=== PATIENT | male | born 1955 | race African-American/Black ===

== ENCOUNTER 2019-03-26 16:30 | Inpatient (IN) | payer MEDICAID ==
[~2019-03-26] VITALS: Ht 170.2 cm; Wt 95.3 kg
--- OUTSIDE RECORDS SUMMARY | 2019-03-26 16:35 | XMS REPORT | Referral Summary ---
Author Author [facility] Organization Via [facility] Address Unknown Phone Unavailable Care Team Providers Care Superior Court Clerk Name Role Phone [facility], [facility] PCP Unavailable Encounter [facility] [id number] Date(s): 05/15/17 - 05/15/17 [facility] [address] [place], [place] [address] Discharge Diagnosis: Effusion of left knee Discharge Disposition: 01-Home or Self Care Attending Physician: Cristobal Domingo MD Admitting Physician: Cristobal Domingo MD Vital Signs Most recent to 1 oldest [Reference Range]: Respiratory Rate 16 br/min [14-20 br/min] (05/15/17 3:55 PM) Problem List Condition Effective Dates Status Health Status Informant Acute Active pain(Confirmed) At risk for activity Active intolerance(Confirme d)1 At risk of pressure Active sore(Confirmed) Chronic obstructive Active pulmonary disease(Confirmed) Hepatitis Active C(Confirmed) Osteoarthritis(Confi Active rmed) Hypertension(Confirm Active patient ed) Knowledge Active deficit(Confirmed)2 Mixed Active hyperlipidemia(Confi rmed) Obesity(Confirmed) Active patient Peripheral vascular Active disease(Confirmed) Nicotine Active dependence(Confirmed ) 1Problem added automatically by system based on initiation of At Risk for Activity Intolerance Plan of Care 2Problem added automatically by system based on initiation of Knowledge Deficit Plan of Care Allergies, Adverse Reactions, Alerts No Known Medication Allergies Medications aspirin 81 mg oral tablet 81 mg 1 tabs, Oral, Daily, 0 Refill(s) Start Date: 01/17/17 Status: Ordered atorvastatin 20 mg oral tablet 20 mg 1 tabs, Oral, Daily, # 30 tabs, 0 Refill(s) Start Date: 03/06/17 Status: Ordered clopidogrel 75 mg oral tablet 75 mg 1 tabs, Oral, Daily, 0 Refill(s) Start Date: 01/17/17 Status: Ordered lisinopril-hydrochlorothiazide 20 mg-12.5 mg oral tablet 1 tabs, Oral, Daily, 0 Refill(s) Start Date: 01/17/17 Status: Ordered Results Microbiology Reports TEST: Fluid Culture and Smear STATUS: Order in Progress BODY SITE: SOURCE: Synovial Fluid COLLECTED DATE/TIME: 05/15/17 5:10 PM Gram Smear Few (1-5/OIF) white blood cells No microorganisms observed OIF=Oil Immersion Field LPF=Low Power Field Immunizations No data available for this section Procedures Procedure Date Related Diagnosis Body Site Arthrocentesis, aspiration and/or injection, 05/15/17 major joint or bursa (eg, shoulder, hip, knee, subacromial bursa); without ultrasound guidance Angioplasty balloon catheter1 Placement of stent2 1RLE 2LLE Social History Social History Type Response Smoking Status Current every day smoker; Tobacco use per day: 1/2 pack or more Assessment and Plan No data available for this section
--- OUTSIDE RECORDS SUMMARY | 2019-03-26 16:35 | XMS REPORT | Referral Summary ---
Author Author [facility] Organization [facility] Address Unknown Phone Unavailable Care Team Providers Care Official Court Interpreter Name Role Phone [facility], [facility] PCP Unavailable Encounter [facility] [id number] Date(s): 02/14/17 - 02/14/17 [facility] [address], [place] [address] [facility] Discharge Diagnosis: Hepatitis C Discharge Disposition: 01-Home or Self Care Attending Physician: Rosita Burroughs MD Admitting Physician: Rosita Burroughs MD Vital Signs Most recent to 1 oldest [Reference Range]: Peripheral Pulse 76 bpm Rate [60-100 bpm] (02/14/17 10:49 AM) Blood Pressure 126/66 mmHg [90-140/60-90 mmHg] (02/14/17 10:49 AM) Problem List Condition Effective Dates Status Health Status Informant Acute Active pain(Confirmed) At risk for activity Active intolerance(Confirme d)1 At risk of pressure Active sore(Confirmed) Chronic obstructive Active pulmonary disease(Confirmed) Hypertension(Confirm Active patient ed) Knowledge Active deficit(Confirmed)2 Mixed Active hyperlipidemia(Confi rmed) Nicotine Active dependence(Confirmed ) Obesity(Confirmed) Active patient Osteoarthritis(Confi Active rmed) Peripheral vascular Active disease(Confirmed) 1Problem added automatically by system based on initiation of At Risk for Activity Intolerance Plan of Care 2Problem added automatically by system based on initiation of Knowledge Deficit Plan of Care Allergies, Adverse Reactions, Alerts No Known Medication Allergies Medications aspirin 81 mg oral tablet 81 mg 1 tabs, Oral, Daily, 0 Refill(s) Start Date: 01/17/17 Status: Ordered clopidogrel 75 mg oral tablet 75 mg 1 tabs, Oral, Daily, 0 Refill(s) Start Date: 01/17/17 Status: Ordered lisinopril-hydrochlorothiazide 20 mg-12.5 mg oral tablet 1 tabs, Oral, Daily, 0 Refill(s) Start Date: 01/17/17 Status: Ordered pravastatin 20 mg oral tablet 20 mg 1 tabs, Oral, Daily, 0 Refill(s) Start Date: 01/17/17 Status: Ordered traMADol 50 mg oral tablet 50 mg 1 tabs, Oral, q4hr, as needed for pain, # 30 tabs, 0 Refill(s) Start Date: 02/06/17 Stop Date: 02/15/17 Status: Ordered Results No data available for this section Immunizations No data available for this section Procedures Procedure Date Related Diagnosis Body Site Angioplasty balloon catheter1 Placement of stent2 1RLE 2LLE Social History Social History Type Response Smoking Status Current every day smoker; Tobacco use per day: 1/2 pack or more Assessment and Plan Extracted from: Title: Office Visit Note Author: Rosita Burroughs MD Date: 02/14/17 Assessment/Plan 1.Hepatitis C Genotype 1b, F3. He has been approved for Zepatier 12 weeks. He is waitingfor the medication to me mailed to him. The patient is requested to call me once he receives the medication then I need to see him to give him detailed instructions on how to take the medications and how to handle possible side effects. He is treatment [place]. Extracted from: Title: Bob Approved Author: Cassius Oleary MA Date: 02/14/17 Patients insurer faxed approval letter for zepatier for initial 28 day supply. [email or web address] and was informed that [facility] has taken over patients zepatier and approval
--- OUTSIDE RECORDS SUMMARY | 2019-03-26 16:36 | XMS REPORT | Referral Summary ---
Author Author [facility] Organization [facility] Address Unknown Phone Unavailable Care Team Providers Care Transport Aide Name Role Phone [facility], [facility] PCP Unavailable Encounter [facility] [id number] Date(s): 02/23/17 - 02/23/17 [facility] [address], [place] [address] [facility] Discharge Diagnosis: Hepatitis C Discharge Disposition: 01-Home or Self Care Attending Physician: Rosita Burroughs MD Admitting Physician: Rosita Burroughs MD Vital Signs Most recent to 1 oldest [Reference Range]: Peripheral Pulse 90 bpm Rate [60-100 bpm] (02/23/17 1:10 PM) Blood Pressure 116/64 mmHg [90-140/60-90 mmHg] (02/23/17 1:10 PM) Problem List Condition Effective Dates Status [...] 0 Refill(s) Start Date: 01/17/17 Status: Ordered Zepatier 50 mg-100 mg oral tablet 1 tabs, Oral, Daily, # 28 tabs, 2 Refill(s), called to pharmacy (Rx) Start Date: 02/20/17 Stop Date: 04/25/17 Status: Ordered Results No data available for [...] Visit Note Author: Rosita Burroughs MD Date: 02/23/17 Assessment/Plan 1.Hepatitis C Genotype 1b, F3. He is treatment naive. He will start his Zepatier today for a total of 12 weeks. CBC, CMP, hepatitis C viral loadin one month. Follow-up in one month. I have discussed with him how to take the medication, drug interactions, and possible side effects. He needs to call me if with questions or concerns.He is immune to hepatitis A and B Ordered: CBC Hemogram CBC w/ Differential CBC w/ Differential CBC w/ Differential Comprehensive Metabolic Panel Comprehensive Metabolic Panel Comprehensive Metabolic Panel Comprehensive Metabolic Panel Hepatitis C RNA PCR Quantitative Hepatitis C RNA PCR Quantitative Hepatitis C RNA PCR Quantitative
--- OUTSIDE RECORDS SUMMARY | 2019-03-26 16:36 | XMS REPORT | Referral Summary ---
Author Author [facility] Organization [facility] Address Unknown Phone Unavailable Care Team Providers Care Vascular Radiologist Name Role Phone [facility], [facility] PCP Unavailable Encounter [facility] [id number] Date(s): 01/17/17 - 01/17/17 [facility] [address], [place] [address] [facility] Discharge Diagnosis: Hepatitis C Discharge Disposition: 01-Home or Self Care Attending Physician: Rosita Burroughs MD Admitting Physician: Rosita Burroughs MD Referring Physician: Mya Bonilla PA-C Vital Signs Most recent to 1 oldest [Reference Range]: Peripheral Pulse 80 bpm Rate [60-100 bpm] (01/17/17 9:43 AM) Respiratory Rate 20 br/min [14-20 br/min] (01/17/17 9:43 AM) Blood Pressure 120/78 mmHg [90-140/60-90 mmHg] (01/17/17 9:43 AM) Problem List Condition Effective Dates Status [...] Refill(s) Start Date: 01/17/17 Status: Ordered Results Chemistry Most recent to 1 oldest [Reference Range]: Hep Bs Ab 36.0 1 (01/17/17 11:10 AM) Hepatitis B Surface Positive 2 Ab-QL *ABN* (01/17/17 11:10 AM) Hep Bs Ag Negative (01/17/17 11:10 AM) 1Result Comment: REFERENCE VALUE No Immunity or unvaccinated: <8.0 Immune or vaccinated:=>12.0 2Result Comment: REFERENCE VALUE No Immunity or unvaccinated: Negative Immune or vaccinated: Positive Immunizations No data available for this section Procedures Procedure Date Related Diagnosis Body Site Angioplasty balloon catheter1 Placement of stent2 1RLE 2LLE Social History Social History Type Response Smoking Status Current every day smoker; Tobacco use per day: 1/2 pack or more Assessment and Plan No data available for this section
--- OUTSIDE RECORDS SUMMARY | 2019-03-26 16:36 | XMS REPORT | Referral Summary ---
Author Author [facility] Organization [facility] Address Unknown Phone Unavailable Care Team Providers Care Mill Attendant Name Role Phone No PCP, Pt States PCP Encounter [facility] Date(s): 06/18/16 - 06/19/16 [facility] [address] [place] [address] Discharge Diagnosis: Ankle fracture Discharge Disposition: Against Medical Advice Attending Physician: Alonso Green MD Admitting Physician: Alonso Green MD Vital Signs Most recent to 1 oldest [Reference Range]: Temperature Oral 36.5 degC [35.8-37.3 degC] (06/19/16 11:00 AM) Apical Heart Rate 16 bpm [60-100 bpm] *LOW* (06/19/16 1:23 AM) Peripheral Pulse 77 bpm Rate [60-100 bpm] (06/19/16 11:00 AM) Heart Rate Monitored 83 bpm [60-100 bpm] (06/19/16 1:45 AM) Respiratory Rate 16 br/min [14-20 br/min] (06/19/16 11:00 AM) Blood Pressure 144/82 mmHg [90-140/60-90 mmHg] *HI* (06/19/16 11:00 AM) Mean Arterial 89 mmHg Pressure, Cuff (06/19/16 1:45 AM) SpO2 94 % (06/19/16 11:00 AM) Problem List Condition Effective Dates Status Health Status Informant Acute Active pain(Confirmed) At risk for activity Active intolerance(Confirme d)1 At risk of pressure Active sore(Confirmed) Hypertension(Confirm Active patient ed) Knowledge Active deficit(Confirmed)2 1Problem added automatically by system based on initiation of At Risk for Activity Intolerance Plan of Care 2Problem added automatically by system based on initiation of Knowledge Deficit Plan of Care Allergies, Adverse Reactions, Alerts No Known Medication Allergies Medications No Known Medications Results Hematology Most recent to 1 oldest [Reference Range]: WBC [4.8-10.8 8.1 10*3/uL 10*3/uL] (06/18/16 11:06 PM) RBC [4.60-6.20] 5.04 (06/18/16:06 PM) Hgb [14.0-18.0 14.5 gm/dL gm/dL] (06/18/16: PM) Hct [42.0-52.0 %] 42.8 % (06/18/16:06 PM) MCV [82.0-99.0 fL] 84.9 fL (06/18/16: PM) MCH [27.0-32.0 pg] 28.8 pg (06/18/16:06 PM) MCHC [32.0-36.0 33.9 gm/dL gm/dL] (06/18/16:06 PM) RDW [11.5-14.5 %] 14.4 % (06/18/16 11:06 PM) Platelet [150-400 249 10*3/uL 10*3/uL] (06/18/16 11:06 PM) MPV [9.4-12.3 fL] 10.7 fL (06/18/16:06 PM) Immature 0.2 % Granulocytes (06/18/16:06 PM) [0.0-1.0 %] Neutrophils [51-75 60 % %] (06/18/16:06 PM) Lymphocytes [20-46 30 % %] (06/18/16:06 PM) Monocytes [4-11 %] 9 % (06/18/16 11:06 PM) Eosinophils [0-4 %] 1 % (06/18/16 11:06 PM) Basophils [0-2 %] 1 % (06/18/16:06 PM) Neutro Absolute 4.85 10*3 [1.90-7.00 10*3] (06/18/16 11:06 PM) Lymph Absolute 2.42 10*3 [0.80-3.30 10*3] (06/18/16 11:06 PM) Holt Absolute 0.73 10*3 [0.30-1.00 10*3] (06/18/16 11:06 PM) Eos Absolute 0.06 10*3 [0.00-0.50 10*3] (06/18/16 11:06 PM) Baso Absolute 0.04 10*3 [0.00-0.20 10*3] (06/18/16 11:06 PM) Nucleated RBC 0.0 /100 WBC Automated [0 /100 (06/18/16: PM) WBC] Coagulation Most recent to 1 oldest [Reference Range]: INR [0.9-1.2] 1.1 (06/18/16 11:06 PM) Chemistry Most recent to 1 oldest [Reference Range]: Sodium Lvl [136-144 135 mEq/L mEq/L] *LOW* (06/18/16 PM) Potassium Lvl 3.6 mEq/L [3.6-5.1 mEq/L] (06/18/16 11:56 PM) Chloride [99-109 104 mEq/L mEq/L] (06/18/16: PM) CO2 [22-32 mEq/L] 24 mEq/L (06/18/16:06 PM) AGAP [3-20] 7 (06/18/16: PM) BUN [4-20 mg/dL] 16 mg/dL (06/18/16: PM) Glucose Lvl [70-100 98 mg/dL mg/dL] (06/18/16: PM) Creatinine Lvl 1.01 mg/dL [0.64-1.27 mg/dL] (06/18/16: PM) eGFR [>60] >60 1 (06/18/16: PM) Calcium Lvl 9.2 mg/dL [8.6-10.0 mg/dL] (06/18/16: PM) Albumin Lvl [3.5-4.8 3.6 gm/dL gm/dL] (06/18/16: PM) Total Protein 8.1 gm/dL [6.1-7.9 gm/dL] *HI* (06/18/16 PM) Globulin [1.9-4.3 4.5 gm/dL gm/dL] *HI* (06/18/16 11:06 PM) ALT [17-63 U/L] 16 U/L *LOW* (06/18/16 11:06 PM) AST [15-41 U/L] 35 U/L (06/18/16 11:06 PM) Alk Phos [26-104 81 U/L U/L] (06/18/16 11:06 PM) Bili Total [0.2-1.2 1.5 mg/dL 2 mg/dL] *HI* (06/18/16 11:06 PM) 1Result Comment: Multiply eGFR results by 1.21 for race. 2Result Comment: Naproxen, specifically the metabolite O-desmethylnaproxen, may cause spurious elevation in Total Bilirubin levels. Immunizations No data available for this section Procedures No data available for this section Social History Social History Type Response Smoking Status Current every day smoker; Tobacco use per day: 1/2 pack or more Assessment and Plan No data available for this section
--- OUTSIDE RECORDS SUMMARY | 2019-03-26 16:36 | XMS REPORT | Referral Summary ---
Author Author [facility] Organization [facility] Address Unknown Phone Unavailable Care Team Providers Care Log Hooker Name Role Phone [facility], [facility] PCP Unavailable Encounter [facility] [id number] Date(s): 05/31/17 - 05/31/17 [facility] [address], [place] [address] [facility] Discharge Disposition: 01-Home or Self Care Attending Physician: Margarita Cabrera Admitting Physician: Margarita Cabrera Vital Signs Most recent to 1 oldest [Reference Range]: Peripheral Pulse 66 bpm Rate [60-100 bpm] (05/31/17 2:05 PM) Blood Pressure 116/64 mmHg [90-140/60-90 mmHg] (05/31/17 2:05 PM) Problem List Condition Effective Dates Status [...] Refill(s) Start Date: 01/17/17 Status: Ordered Results No data available for [...]
--- OUTSIDE RECORDS SUMMARY | 2019-03-26 16:36 | XMS REPORT | Referral Summary ---
Author Author [facility] Organization [facility] Address Unknown Phone Unavailable Care Team Providers Care Structural Steel Ironworker Name Role Phone [facility], [facility] PCP Unavailable Encounter [facility] [id number] Date(s): 06/19/17 - 06/19/17 [facility] [address] [place], [place] [address] Discharge Diagnosis: Gout of left knee Discharge Disposition: 01-Home or Self Care Attending Physician: Cristobal Domingo MD Admitting Physician: Cristobal Domingo MD Vital Signs Most recent to 1 oldest [Reference Range]: Respiratory Rate 16 br/min [14-20 br/min] (06/19/17 11:13 AM) Problem List Condition Effective Dates Status [...] Diagnosis Body Site Arthrocentesis, aspiration and/or injection, 06/19/17 major joint or bursa (eg, shoulder, hip, knee, subacromial bursa); without ultrasound guidance Angioplasty balloon catheter1 Placement of stent2 1RLE 2LLE Social History Social History Type Response Smoking Status Current every day smoker; Tobacco use per day: 1/2 pack or more Assessment and Plan Extracted from: Title: MK Knee RCK Author: Cristobal Domingo MD Date: 06/19/17 Impression and Plan Diagnosis Gout of left knee ([id number] M10.9, Discharge, Medical). Course: Progressing as expected. Patient Instructions: Counseled: Patient, Regarding diagnosis, Verbalized understanding. Orders Orders (Selected) Outpatient Orders Ordered Arthro/Asp Major Joint Inj (Shoulder, Hip, Knee) 91392: Marcaine HCl 0.25% preservative-free injectable solution - 10 ML: 4 mL, IntraARTICULAR, Once Office Visit Level 3 Est 09643: triamcinolone acetonide 40 mg/mL injectable suspension: 40 mg, IntraARTICULAR, Once. Dx/Order Association Plan: Diagnosis: 1. Gout of left knee Comment: Based on today's assessment, he is still having pain at this time. Discussed treatment options including injections. Today will perform both an injection and aspiration on the L knee. Procedure Note: The lateral surface of the [left] knee was sterilely prepped with Betadine. Using an 18 guage needle, the joint was entered and a total of 50 mL of clear appearing synovial fluid was aspirated from the joint. Then, using a 10 mL syringe, a total of 4 mL of 1% lidocaine, 4 mL of 0.25% percent bupivacaine, and 1 mL of Kenalog (40 mg) was injected into the joint without difficulty. The patient tolerated the procedure well. Within 5 minutes, the patient felt significant pain relief and was able to ambulate without difficulty. The patient will return to our clinic on an as-needed basis. . This note is prepared by Charly Powell, acting as certified medical aide for Dr. Domingo.This documentation recorded by the scribe reflects the service I personally performed and the decisions made by me.
--- OUTSIDE RECORDS SUMMARY | 2019-03-26 16:36 | XMS REPORT | Referral Summary ---
Author Author [facility] Organization [facility] Address Unknown Phone Unavailable Care Team Providers Care Waiter/Waitress Cafeteria Name Role Phone [facility], [facility] PCP Unavailable Encounter [facility] [id number] Date(s): 02/06/17 - 02/06/17 [facility] [address] [place], [place] [address] Discharge Diagnosis: Left knee DJD Discharge Diagnosis: Effusion of left knee Discharge Disposition: 01-Home or Self Care Attending Physician: Cristobal Domingo MD Admitting Physician: Cristobal Domingo MD Referring Physician: Mya Bonilla PA-C Vital Signs Most recent to 1 oldest [Reference Range]: Respiratory Rate 19 br/min [14-20 br/min] (02/06/17 2:48 PM) Problem List Condition Effective Dates Status [...] 02/06/17 Stop Date: 02/15/17 Status: Ordered Results Microbiology Reports TEST: Fluid Culture and Smear STATUS: Order in Progress BODY SITE: SOURCE: Synovial Fluid COLLECTED DATE/TIME: 02/06/17 3:55 PM Gram Smear Rare (0-1/OIF) white blood cells No microorganisms observed OIF=Oil Immersion Field LPF=Low Power Field Immunizations No data available for this section Procedures Procedure Date Related Diagnosis Body Site Arthrocentesis, aspiration and/or injection, 02/06/17 major joint or bursa (eg, shoulder, hip, knee, subacromial bursa); without ultrasound guidance Angioplasty balloon catheter1 Placement of stent2 1RLE 2LLE Social History Social History Type Response Smoking Status Current every day smoker; Tobacco use per day: 1/2 pack or more Assessment and Plan No data available for this section
--- OUTSIDE RECORDS SUMMARY | 2019-03-26 16:37 | XMS REPORT ---
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 15405720 Problem Other chronic pain G89.29 Active 33778348 Problem Panlobular emphysema J43.1 Active 3410054 Problem DDD (degenerative disc disease), lumbar M51.36 Active 15032521 Problem Arthritis of left knee M17.12 Active 5610679967433416 Problem Essential hypertension I10 Active 33876927 Problem Current smoker F17.200 Active 43646941 ALLERGIES No Known Allergies ENCOUNTERS Encounter Location Date Diagnosis [facility] [address] [place] [address] [id number] Oct, [facility] [address] [place] [address] [id number] Sep, Risk for dental caries, low Z91.841 [facility] [address] [place] [address] [id number] Sep, Arthritis of left knee M17.12 ; Other chronic pain G89.29 ; DDD (degenerative disc disease), lumbar M51.36 and Essential hypertension I10 [facility] [address] [place] [address] [id number] Aug, Essential hypertension I10 ; PAD (peripheral artery disease) I73.9 and DDD (degenerative disc disease), lumbar M51.36 [facility] [address] [place] [address] [id number] Jul, Essential hypertension I10 ; DDD (degenerative disc disease), lumbar M51.36 ; 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 ; Screen for colon cancer Z12.11 and Other chronic pain G89.29 [facility] [address] [place] [address] [id number] Jun, DDD (degenerative disc disease), lumbar M51.36 ; PAD (peripheral artery disease) I73.9 and Other chronic pain G89.29 [facility] [address] [place] [address] [id number] May, Acute upper respiratory infection, unspecified J06.9 ; Other viral agents as the cause of diseases classified elsewhere B97.89 ; Pharyngitis due to other organism J02.8 ; Other chronic pain G89.29 and DDD (degenerative disc disease), lumbar M51.36 [facility] [address] [place] [address] [id number] May, Cough R05 ; COPD with exacerbation J44.1 and Sore throat J02.9 [facility] [address] [place] [address] [id number] May, [facility] [address] [place] [address] [id number] Apr, DDD (degenerative disc disease), lumbar M51.36 and Other chronic pain G89.29 [facility] [address] [place] [address] [id number] Apr, [facility] [address] [place] [address] [id number] Mar, [facility] [address] [place] [address] [id number] Mar, [facility] [address] [place] [address] [id number] Mar, [facility] [address] [place] [address] [id number] Mar, Current mild episode of major depressive disorder without prior episode F32.0 [facility] [address] [place] [address] [id number] Mar, DDD (degenerative disc disease), lumbar M51.36 ; PAD (peripheral artery disease) I73.9 and 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 [facility] [address] [place] [address] [id number] Mar, [facility] [address] [place] [address] [id number] Jan, DDD (degenerative disc disease), lumbar M51.36 ; 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 ; Screening, anemia, deficiency, iron Z13.0 ; Screening PSA (prostate specific antigen) Z12.5 ; Screening for lipid disorders Z13.220 and Essential hypertension I10 [facility] [address] [place] [address] [id number] Dec, PAD (peripheral artery disease) I73.9 ; Essential hypertension I10 ; Current smoker F17.200 ; DDD (degenerative disc disease), lumbar M51.36 ; Screening, anemia, deficiency, iron Z13.0 ; Screening for lipid disorders Z13.220 ; Screen for colon cancer Z12.11 ; Screening PSA (prostate specific antigen) Z12.5 ; COPD with exacerbation J44.1 and 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 [facility] [address] [place] [address] [id number] Nov, DDD (degenerative disc disease), lumbar M51.36 ; Other chronic pain G89.29 ; Essential hypertension I10 and Current smoker F17.200 [facility] [address] [place] [address] [id number] Oct, Other chronic pain G89.29 ; Essential hypertension I10 ; Arthritis of left knee M17.12 ; Arthritis of left shoulder region M19.012 ; DDD (degenerative disc disease), lumbar M51.36 and Current smoker F17.200 [facility] [address] [place] [address] [id number] Sep, [facility] [address] [place] [address] [id number] Sep, [facility] [address] [place] [address] [phone] Aug, [facility] [address] [place] [address] [id number] Jul, [facility] [address] [place] [address] [id number] May, [facility] [address] [place] [address] [id number] May, [facility] [address] [place] [address] [id number] Apr, IMMUNIZATIONS No Known Immunizations SOCIAL HISTORY Never Assessed REASON FOR VISIT discuss meds (rx for high toilet seat), Would like paperwork sent down to [facility] PLAN OF CARE Activity Details Follow Up 4 Weeks Reason:bp/med fu VITAL SIGNS Temperature 98.2 degrees Fahrenheit 2018-10-11 Heart Rate 117 /min 2018-10-11 Respiratory Rate 18 /min 2018-10-11 Oximetry 99 % 2018-10-11 Weight 201.0 lbs 2018-10-11 Height 67 in 2018-10-11 BMI 31.48 kg/m2 2018-10-11 Blood pressure systolic 149 mm Hg 2018-10-11 Blood pressure diastolic 95 mm Hg 2018-10-11 MEDICATIONS Medication Instructions Dosage Frequency Start Date End Date Duration Status Colchicine 0.6 MG Orally Once a day 2 tablets, then repeat 1 tablet in 1 hour. May repeat in 3 days 24h Active Allopurinol 300 MG Orally Once a day 1 tablet 24h Mar, 90 days Active Misc. Devices - dx: chronic pain, bilateral arthritis of knee, DDD lumbar as directed high toilet seat Sep, 1 dose Active Amlodipine Besylate 5 MG Orally Once a day 1 tablet at bedtime for blood pressure 24h Sep, 90 days Active Oxycodone HCl 10 mg Orally as directed take 1 tablet by Oral route up to 4 times per day PRN Aug, 30 days Active Aleve 220 MG Orally every 12 hrs 1 tablet with food or milk as needed 12h Active Advair Diskus 100-50 MCG/DOSE Inhalation Twice a day 1 puff 12h 90 days Active Plavix 75 MG Orally Once a day 1 tablet 24h 90 days Active Lisinopril 40 MG Orally Once a day at bedtime 1 tablet Nov, 90 days Active RESULTS No Results PROCEDURES No Known procedures INSTRUCTIONS MEDICATIONS ADMINISTERED No Known Medications MEDICAL (GENERAL) HISTORY Type Description Date Medical History Current smoker Medical History Essential hypertension Medical History Other chronic pain Medical History Panlobular emphysema Medical History Arthritis of left knee Medical History Arthritis of left shoulder region Medical History 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
--- OUTSIDE RECORDS SUMMARY | 2019-03-26 16:37 | XMS REPORT ---
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 45329929 Problem Other chronic pain G89.29 Active 98051612 Problem Panlobular emphysema J43.1 Active 3285676 Problem DDD (degenerative disc disease), lumbar M51.36 Active 47150257 Problem Arthritis of left knee M17.12 Active 4729695679851736 Problem Essential hypertension I10 Active 23514003 Problem Current smoker F17.200 Active 69626683 ALLERGIES No Information ENCOUNTERS Encounter Location Date Diagnosis [facility] [address] [place] [address] [id number] Sep, [facility] [address] [place] [address] [id number] Aug, Essential hypertension I10 ; PAD (peripheral artery disease) I73.9 and DDD (degenerative disc disease), lumbar M51.36 [facility] [address] [place] [address] [id number] Jul, Essential hypertension I10 ; DDD (degenerative disc disease), lumbar M51.36 ; 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 ; Screen for colon cancer Z12.11 and Other chronic pain G89.29 [facility] [address] [place] [address] [id number] Jun, DDD (degenerative disc disease), lumbar M51.36 ; PAD (peripheral artery disease) I73.9 and Other chronic pain G89.29 [facility] [address] [place] [address] [id number] May, Acute upper respiratory infection, unspecified J06.9 ; Other viral agents as the cause of diseases classified elsewhere B97.89 ; Pharyngitis due to other organism J02.8 ; Other chronic pain G89.29 and DDD (degenerative disc disease), lumbar M51.36 [facility] [address] [place] [address] [id number] May, Cough R05 ; COPD with exacerbation J44.1 and Sore throat J02.9 [facility] [address] [place] [address] [id number] May, [facility] [address] [place] [address] [id number] Apr, DDD (degenerative disc disease), lumbar M51.36 and Other chronic pain G89.29 [facility] [address] [place] [address] [id number] Apr, [facility] [address] [place] [address] [id number] Mar, [facility] [address] [place] [address] [id number] Mar, [facility] [address] [place] [address] [id number] Mar, [facility] [address] [place] [address] [id number] Mar, Current mild episode of major depressive disorder without prior episode F32.0 [facility] [address] [place] [address] [id number] Mar, DDD (degenerative disc disease), lumbar M51.36 ; PAD (peripheral artery disease) I73.9 and 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 [facility] [address] [place] [address] [id number] Mar, [facility] [address] [place] [address] [id number] Jan, DDD (degenerative disc disease), lumbar M51.36 ; 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 ; Screening, anemia, deficiency, iron Z13.0 ; Screening PSA (prostate specific antigen) Z12.5 ; Screening for lipid disorders Z13.220 and Essential hypertension I10 [facility] [address] [place] [address] [id number] Dec, PAD (peripheral artery disease) I73.9 ; Essential hypertension I10 ; Current smoker F17.200 ; DDD (degenerative disc disease), lumbar M51.36 ; Screening, anemia, deficiency, iron Z13.0 ; Screening for lipid disorders Z13.220 ; Screen for colon cancer Z12.11 ; Screening PSA (prostate specific antigen) Z12.5 ; COPD with exacerbation J44.1 and 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 [facility] [address] [place] [address] [id number] Nov, DDD (degenerative disc disease), lumbar M51.36 ; Other chronic pain G89.29 ; Essential hypertension I10 and Current smoker F17.200 [facility] [address] [place] [address] [id number] Oct, Other chronic pain G89.29 ; Essential hypertension I10 ; Arthritis of left knee M17.12 ; Arthritis of left shoulder region M19.012 ; DDD (degenerative disc disease), lumbar M51.36 and Current smoker F17.200 [facility] [address] [place] [address] [id number] Sep, [facility] [address] [place] [address] [id number] Sep, [facility] [address] [place] [address] [id number] Aug, [facility] [address] [place] [address] [id number] Jul, [facility] [address] [place] [address] [id number] May, [facility] [address] [place] [address] [id number] May, [facility] [address] [place] [address] [id number] Apr, IMMUNIZATIONS No Known Immunizations SOCIAL HISTORY Never Assessed REASON FOR VISIT med refill PLAN OF CARE VITAL SIGNS MEDICATIONS Medication Instructions Dosage Frequency Start Date End Date Duration Status Lisinopril 40 MG Orally Once a day at bedtime 1 tablet Nov, 90 days Active Plavix 75 MG Orally Once a day 1 tablet 24h 90 days Active Advair Diskus 100-50 MCG/DOSE Inhalation Twice a day 1 puff 12h 90 days Active RESULTS No Results PROCEDURES [...]
--- OUTSIDE RECORDS SUMMARY | 2019-03-26 16:37 | XMS REPORT | Referral Summary ---
Author Author [facility] Organization [facility] Address Unknown Phone Unavailable Care Team Providers Care Parking Meter Collector Name Role Phone [facility] PCP Unavailable Encounter [facility] [id number] Date(s): 03/06/17 - 03/06/17 [facility] [address] [place], [place] [address] Discharge Diagnosis: Osteoarthritis Discharge Diagnosis: Hepatitis C Discharge Diagnosis: Nicotine dependence Discharge Diagnosis: Elevated rheumatoid factor Discharge Disposition: 01-Home or Self Care Attending Physician: Jose Bolanos MD Admitting Physician: Jose Bolanos MD Referring Physician: [facility] Vital Signs Most recent to 1 oldest [Reference Range]: Peripheral Pulse 87 bpm Rate [60-100 bpm] (03/06/17 9:56 AM) Respiratory Rate 18 br/min [14-20 br/min] (03/06/17 9:56 AM) Blood Pressure 138/90 mmHg [90-140/60-90 mmHg] (03/06/17 9:56 AM) Problem List Condition Effective Dates Status [...] 0 Refill(s) Start Date: 01/17/17 Status: Ordered [place] 5 mg-325 mg oral tablet 1 tabs, Oral, q6hr, as needed for pain, # 20 tabs, 0 Refill(s) Start Date: 03/06/17 Stop Date: 03/14/17 Status: Ordered Zepatier 50 mg-100 mg oral [...] Extracted from: Title: Office Visit Note Author: Jose Bolanos MD Date: 03/06/17 Assessment/Plan 1.Osteoarthritis Ordered: Office Visit Level 4 New 2.Hepatitis C Ordered: Office Visit Level 4 3.Nicotine dependence Ordered: Office Visit Level 4 New 4.Elevated rheumatoid factor Ordered: Office Visit Level 4 New
--- OUTSIDE RECORDS SUMMARY | 2019-03-26 16:37 | XMS REPORT ---
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 24468637 Problem Other chronic pain G89.29 Active 73896265 Problem Panlobular emphysema J43.1 Active 5478449 Problem DDD (degenerative disc disease), lumbar M51.36 Active 87253622 Problem Arthritis of left knee M17.12 Active 0963834952599188 Problem Essential hypertension I10 Active 64160613 Problem Current smoker F17.200 Active 89648426 ALLERGIES No Information ENCOUNTERS Encounter Location Date Diagnosis [facility] [address] [place] [address] [id number] Oct, [facility] [address] [place] [address] [id number] Sep, Risk for dental caries, low Z91.841 [facility] [address] [place] [address] [id number] Sep, Arthritis of left knee M17.12 ; Other chronic pain G89.29 ; DDD (degenerative disc disease), lumbar M51.36 and Essential hypertension I10 [facility] [address] [place] [address] [id number] Aug, Essential hypertension I10 ; PAD (peripheral artery disease) I73.9 and DDD (degenerative disc disease), lumbar M51.36 [facility] [address] [place] [address] [id number] Jul, Essential hypertension I10 ; DDD (degenerative disc disease), lumbar M51.36 ; 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36 [facility] [address] [place] [address] [id number] May, Cough R05 ; COPD with exacerbation J44.1 and Sore throat J02.9 [facility] [address] [place] [address] [id number] May, [facility] [address] [place] [address] [id number] Apr, DDD (degenerative disc disease), lumbar M51.36 and Other chronic pain G89.29 [facility] [address] [place] [address] [id number] Apr, [facility] [address] [place] [address] [id number] Mar, [facility] [address] [place] [address] [id number] Mar, [facility] [address] [place] [address] [id number] Mar, [facility] [address] [place] [address] [id number] Mar, Current mild episode of major depressive disorder without prior episode F32.0 [facility] [address] [place] [address] [id number] Mar, DDD (degenerative disc disease), lumbar M51.36 ; PAD (peripheral artery disease) I73.9 and 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 [facility] [address] [place] [address] [id number] Mar, [facility] [address] [place] [address] [id number] Jan, DDD (degenerative disc disease), lumbar M51.36 ; 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 ; Screening, anemia, deficiency, iron Z13.0 ; Screening PSA (prostate specific antigen) Z12.5 ; Screening for lipid disorders Z13.220 and Essential hypertension I10 [facility] [address] [place] [address] [id number] Dec, PAD (peripheral artery disease) I73.9 ; Essential hypertension I10 ; Current smoker F17.200 ; DDD (degenerative disc disease), lumbar M51.36 ; Screening, anemia, deficiency, iron Z13.0 ; Screening for lipid disorders Z13.220 ; Screen for colon cancer Z12.11 ; Screening PSA (prostate specific antigen) Z12.5 ; COPD with exacerbation J44.1 and 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 [address] [place] [address] [id number] Nov, DDD (degenerative disc disease), lumbar M51.36 ; Other chronic pain G89.29 ; Essential hypertension I10 and Current smoker F17.200 [facility] [address] [place] [address] [id number] Oct, Other chronic pain G89.29 ; Essential hypertension I10 ; Arthritis of left knee M17.12 ; Arthritis of left shoulder region M19.012 ; DDD (degenerative disc disease), lumbar M51.36 and Current smoker F17.200 [facility] [address] [place] [address] [id number] Sep, [facility] [address] [place] [address] [id number] Sep, [facility] [address] [place] [address] [id number] Aug, [facility] [address] [place] [address] [id number] Jul, [facility] [address] [place] [address] [id number] May, [facility] [address] [address] [place] [address] [id number] May, [facility] [address] [address] [place] [address] [phone] Apr, IMMUNIZATIONS No Known Immunizations SOCIAL HISTORY Never Assessed REASON FOR VISIT Integrated dental screening PLAN OF CARE VITAL SIGNS MEDICATIONS Unknown Medications RESULTS No Results PROCEDURES Procedure Date Ordered Result Body Site ORAL HYGIENE INSTRUCTIONS Oct 11, 2018 SCREENING OF A PATIENT Oct 11, 2018 Integrated Visit Oct 11, 2018 [facility] RISK ASSESS DOC FIND LOW RSK Oct 11, 2018 INSTRUCTIONS MEDICATIONS ADMINISTERED No Known Medications MEDICAL [...]
--- OUTSIDE RECORDS SUMMARY | 2019-03-26 16:37 | XMS REPORT ---
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 78015022 Problem Other chronic pain G89.29 Active 70582493 Problem Panlobular emphysema J43.1 Active 5126613 Problem DDD (degenerative disc disease), lumbar M51.36 Active 88297938 Problem Arthritis of left knee M17.12 Active 7337147752634882 Problem Essential hypertension I10 Active 60917058 Problem Current smoker F17.200 Active 08769050 ALLERGIES No Known Allergies ENCOUNTERS Encounter Location Date Diagnosis [facility] [address] [place] [address] [id number] Jul, Essential hypertension I10 ; DDD (degenerative disc disease), lumbar M51.36 ; 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 ; Screen for colon cancer Z12.11 and Other chronic pain G89.29 [facility] [address] [place] [address] [id number] Jun, DDD (degenerative disc disease), lumbar M51.36 ; PAD (peripheral artery disease) I73.9 and Other chronic pain G89.29 [facility] [address] [place] [address] [id number] May, Acute upper respiratory infection, unspecified J06.9 ; Other viral agents as the cause of diseases classified elsewhere B97.89 ; Pharyngitis due to other organism J02.8 ; Other chronic pain G89.29 and DDD (degenerative disc disease), lumbar M51.36 [facility] [address] [place] [address] [id number] May, Cough R05 ; COPD with exacerbation J44.1 and Sore throat J02.9 [facility] [address] [place] [address] [id number] May, [facility] [address] [place] [address] [id number] Apr, DDD (degenerative disc disease), lumbar M51.36 and Other chronic pain G89.29 [facility] [address] [place] [address] [id number] Apr, [facility] [address] [place] [address] [id number] Mar, [facility] [address] [place] [address] [id number] Mar, [facility] [address] [place] [address] [id number] Mar, [facility] [address] [place] [address] [id number] Mar, Current mild episode of major depressive disorder without prior episode F32.0 [facility] [address] [place] [address] [id number] Mar, DDD (degenerative disc disease), lumbar M51.36 ; PAD (peripheral artery disease) I73.9 and 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 [facility] [address] [place] [address] [id number] Mar, [facility] [address] [place] [address] [id number] Jan, DDD (degenerative disc disease), lumbar M51.36 ; 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 ; Screening, anemia, deficiency, iron Z13.0 ; Screening PSA (prostate specific antigen) Z12.5 ; Screening for lipid disorders Z13.220 and Essential hypertension I10 [facility] [address] [place] [address] [id number] Dec, PAD (peripheral artery disease) I73.9 ; Essential hypertension I10 ; Current smoker F17.200 ; DDD (degenerative disc disease), lumbar M51.36 ; Screening, anemia, deficiency, iron Z13.0 ; Screening for lipid disorders Z13.220 ; Screen for colon cancer Z12.11 ; Screening PSA (prostate specific antigen) Z12.5 ; COPD with exacerbation J44.1 and 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 [facility] [address] [place] [address] [id number] Nov, DDD (degenerative disc disease), lumbar M51.36 ; Other chronic pain G89.29 ; Essential hypertension I10 and Current smoker F17.200 [facility] [address] [place] [address] [id number] Oct, Other chronic pain G89.29 ; Essential hypertension I10 ; Arthritis of left knee M17.12 ; Arthritis of left shoulder region M19.012 ; DDD (degenerative disc disease), lumbar M51.36 and Current smoker F17.200 [facility] [address] [place] [address] [id number] Sep, [facility] [address] [place] [address] [id number] Sep, [facility] [address] [place] [address] [id number] Aug, [facility] [address] [place] [address] [id number] Jul, [facility] [address] [place] [address] [id number] May, [facility] [address] [place] [address] [id number] May, [facility] [address] [place] [address] [id number] Apr, IMMUNIZATIONS No Known Immunizations SOCIAL HISTORY Never Assessed REASON FOR VISIT med check PLAN OF CARE Activity Details Follow Up 4 Weeks,prn Reason:med taper Pending Test Tox[employer] Select 13 (MW) Pending Test Colonoscopy VITAL SIGNS Temperature 97.8 degrees Fahrenheit 2018-08-26 Heart Rate 104 /min 2018-08-26 Respiratory Rate 18 /min 2018-08-26 Oximetry 99 % 2018-08-26 Weight 199.0 lbs 2018-08-26 Height 67 in 2018-08-26 BMI 31.16 kg/m2 2018-08-26 Blood pressure systolic 132 mm Hg 2018-08-26 Blood pressure diastolic 82 mm Hg 2018-08-26 MEDICATIONS Medication Instructions Dosage Frequency Start Date End Date Duration Status MethylPREDNISolone 4 MG Orally as directed 1 tablet with food or milk Jul, 07 days Active Colchicine 0.6 MG Orally Once a day 2 tablets, then repeat 1 tablet in 1 hour. May repeat in 3 days 24h Active Plavix 75 MG Orally Once a day 1 tablet 24h 90 days Active Lisinopril 40 MG Orally Once a day at bedtime 1 tablet Nov, 90 days Active Aleve 220 MG Orally every 12 hrs 1 tablet with food or milk as needed 12h Active Oxycodone HCl 10 mg Orally as directed take 1 tablet by Oral route up to 4 times per day PRN Aug, 30 days Active Allopurinol 300 MG Orally Once a day 1 tablet 24h Mar, 90 days Active Advair Diskus 100-50 MCG/DOSE Inhalation Twice a day 1 puff 12h Active RESULTS No Results PROCEDURES No Known [...]
--- OUTSIDE RECORDS SUMMARY | 2019-03-26 16:37 | XMS REPORT ---
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 79628800 Problem Other chronic pain G89.29 Active 55324267 Problem Panlobular emphysema J43.1 Active 1642312 Problem DDD (degenerative disc disease), lumbar M51.36 Active 34217430 Problem Arthritis of left knee M17.12 Active 5418054643231346 Problem Essential hypertension I10 Active 77824520 Problem Current smoker F17.200 Active 20936756 ALLERGIES No Known Allergies ENCOUNTERS Encounter Location Date Diagnosis [facility] [address] [place] [address] [id number] Dec, PAD (peripheral artery disease) I73.9 ; Essential hypertension I10 ; Current smoker F17.200 ; DDD (degenerative disc disease), lumbar M51.36 ; Screening, anemia, deficiency, iron Z13.0 ; Screening for lipid disorders Z13.220 ; Screen for colon cancer Z12.11 ; Screening PSA (prostate specific antigen) Z12.5 ; COPD with exacerbation J44.1 and 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 [facility] [address] [place] [address] [id number] Nov, DDD (degenerative disc disease), lumbar M51.36 ; Other chronic pain G89.29 ; Essential hypertension I10 and Current smoker F17.200 [facility] [address] [place] [address] [id number] Oct, Other chronic pain G89.29 ; Essential hypertension I10 ; Arthritis of left knee M17.12 ; Arthritis of left shoulder region M19.012 ; DDD (degenerative disc disease), lumbar M51.36 and Current smoker F17.200 [facility] [address] [place] [address] [id number] Sep, [facility] [address] [place] [address] [phone] Sep, [facility] [address] [place] [address] [id number] Aug, [facility] [address] [place] [address] [id number] Jul, [facility] [address] [place] [address] [id number] May, [facility] [employer] [facility] [address] [place] [address] [phone] May, [facility] [address] [place] [address] [phone] Apr, IMMUNIZATIONS No Known Immunizations SOCIAL HISTORY Never Assessed REASON FOR VISIT blood pressure PLAN OF CARE Activity Details Follow Up 3 Months,prn Reason:routine Pending Test Colonoscopy VITAL SIGNS Temperature 98.5 degrees Fahrenheit 2018-01-01 Heart Rate 93 /min 2018-01-01 Respiratory Rate 20 /min 2018-01-01 Oximetry 98 % 2018-01-01 Weight 192 lbs 2018-01-01 Height 67 in 2018-01-01 BMI 30.07 kg/m2 2018-01-01 Blood pressure systolic 138 mm Hg 2018-01-01 Blood pressure diastolic 78 mm Hg 2018-01-01 MEDICATIONS Medication Instructions Dosage Frequency Start Date End Date Duration Status Advair Diskus 100-50 MCG/DOSE Inhalation Twice a day 1 puff 12h Active Allopurinol 100 MG Orally Once a day 1 tablet 24h 30 day(s) Active Oxycodone HCl 10 mg take 1 tablet by Oral route up to 4 times per day PRN Aug, 30 days Active Lisinopril 40 MG Orally Once a day at bedtime 1 tablet Nov, 90 days Active PredniSONE 50 MG Orally Once a day 1 tablet with food or milk 24h Dec, 05 days Active Azithromycin 250 MG Orally Once a day 2 tablets on the first day, then 1 tablet daily for 4 days 24h Dec, 5 day(s) Active Plavix 75 MG Orally Once a day 1 tablet 24h 30 day(s) Active RESULTS No Results PROCEDURES Procedure Date Ordered Result Body Site BEHAV CHNG SMOKING 3-10 MIN January 01, 2018 INSTRUCTIONS MEDICATIONS ADMINISTERED No Known Medications [...] lumbar Medical History PAD (peripheral artery disease) Surgical History shoulder arthroscopy 10/2008 Surgical History surgery in chest area for osteomylitis Surgical History FEMORAL ENDOVAS GRAFT ADD-ON Hospitalization History surgeries above
--- OUTSIDE RECORDS SUMMARY | 2019-03-26 16:37 | XMS REPORT ---
Author Author KEL LACNE [facility] [employer] Address Unknown Phone Unavailable Care Team Providers Care Farmworker Machine Name Role Phone KEL LANCE Unavailable Allergies No Known Allergies Problems Problem Type Condition Code Onset Dates Condition Status Problem Hypertension 401.9 Active Problem Hyperlipidemia LDL goal < 100 272.4 Active Problem Peripheral arterial disease 443.9 Active Problem Chronic pain 338.29 Active Problem Insomnia 780.52 Active Problem COPD (chronic obstructive pulmonary disease) 496 Active Problem History of CHF (congestive heart failure) V12.59 Active Medications Medication Code System Code Instructions Start Date End Date Status Dosage Flexeril NDC 0 10 mg 3 times a day 1 tablet Results No Known Results Summary Purpose eClinicalWorks Submission
--- OUTSIDE RECORDS SUMMARY | 2019-03-26 16:37 | XMS REPORT | Referral Summary ---
Author Author [facility] Organization [facility] Address Unknown Phone Unavailable Care Team Providers Care Weekend Receptionist Name Role Phone [facility] PCP Unavailable Encounter [facility] [id number] Date(s): 08/23/17 - 08/23/17 [facility] [address] [place], [place] [address] Discharge Diagnosis: Gout of left knee Discharge Diagnosis: Effusion of left knee Discharge Disposition: 01-Home or Self Care Attending Physician: Chai Mao PA-C Admitting Physician: Chai Mao PA-C Vital Signs Most recent to 1 oldest [Reference Range]: Respiratory Rate 18 br/min [14-20 br/min] (08/23/17 10:21 AM) Problem List Condition Effective Dates Status [...] Diagnosis Body Site Arthrocentesis, aspiration and/or injection, 08/23/17 major joint or bursa (eg, shoulder, hip, knee, subacromial bursa); without ultrasound guidance Angioplasty balloon catheter1 Placement of stent2 1RLE 2LLE Social History Social History Type Response Smoking Status Current every day smoker; Tobacco use per day: 1/2 pack or more entered on: 06/18/16 Assessment and Plan Extracted from: Title: L knee effusion Author: Chai Mao PA-C Date: 08/23/17 Effusion of left knee I discussedseveral pathologies associatedwith kneeeffusion including arthritis, gout,internal derangement. At this time, consider gout medication alterations. If patient continues to havesignificant symptomswith effusion,catching or lockingshould considerMRIto rule out internal derangementcould've occurred with injury in August 2016. Procedure: Consent was obtained after discussion of risks. The area was cleansed with Betadine, Cold spray was utilized. Using a, 22-gauge inch and half needle into the knee joint through the superolateral approach, a total of1 mL lidocaine 1 percent without epinephrine and1 mL Marcaine 0.25 percent without epinephrine was injectedto anesthetize the skin. Following this, the 22- gauge needle was advanced and a total of 32 mL of normal-appearing synovial fluid was withdrawn. The needle was left in place the syringe was removed and a total of 1 mL 80 mg Kenalog was injected. Patient tolerated procedure well. Was asked to follow-up with their any signs of infection. Gout of left knee Recommend discussing with the primary doctorpossible changesof gout medication,due to his inability to take colchicine secondary to diarrhea. We also discussed limitations of use of NSAIDs due to his previous cardiac history.
--- OUTSIDE RECORDS SUMMARY | 2019-03-26 16:38 | XMS REPORT ---
Author Author FriendMonica 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 [address] [place] [address] [id number] May, [facility] [address] [place] [address] [id number] Apr, DDD (degenerative disc disease), lumbar M51.36 and Other chronic pain G89.29 [facility] [address] [place] [address] [id number] Apr, [facility] [address] [place] [address] [id number] Mar, [facility] [address] [place] [address] [id number] Mar, [facility] [address] [place] [address] [id number] Mar, [facility] [address] [place] [address] [id number] Mar, Current mild episode of major depressive disorder without prior episode F32.0 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 [address] [place] [address] [id number] Mar, 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 [address] [place] [address] [id number] Nov, DDD (degenerative disc disease), lumbar M51.36 ; Other chronic pain G89.29 ; Essential hypertension I10 and Current smoker F17.200 [facility] [address] [place] [address] [id number] Oct, Other chronic pain G89.29 ; Essential hypertension I10 ; Arthritis of left knee M17.12 ; Arthritis of left shoulder region M19.012 ; DDD (degenerative disc disease), lumbar M51.36 and Current smoker F17.200 [facility] [address] [place] [address] [id number] Sep, [facility] [address] [place] [address] [id number] Sep, [facility] [address] [place] [address] [id number] Aug, [facility] [address] [place] [address] [id number] Jul, [facility] [address] [place] [address] [id number] May, [facility] [address] [place] [address] [phone] May, [facility] [address] [place] [address] [phone] Apr, IMMUNIZATIONS No Known Immunizations SOCIAL HISTORY Never Assessed REASON FOR VISIT Medication Checkup PLAN OF CARE Activity Details Follow Up 4 Weeks,prn Reason:pain refills VITAL SIGNS Temperature 98.3 degrees Fahrenheit 2018-05-06 Heart Rate 87 /min 2018-05-06 Respiratory Rate 16 /min 2018-05-06 Oximetry 100 % 2018-05-06 Weight 197 lbs 2018-05-06 Height 67 in 2018-05-06 BMI 30.85 kg/m2 2018-05-06 Blood pressure systolic 139 mm Hg 2018-05-06 Blood pressure diastolic 87 mm Hg 2018-05-06 MEDICATIONS Medication Instructions Dosage Frequency Start Date End Date Duration Status Advair Diskus 100-50 MCG/DOSE Inhalation Twice a day 1 puff 12h Active Lisinopril 40 MG Orally Once a day at bedtime 1 tablet Nov, 90 days Active Aleve 220 MG Orally every 12 hrs 1 tablet with food or milk as needed 12h Active Oxycodone HCl 10 mg take 1 tablet by Oral route up to 4 times per day PRN Aug, 30 days Active Allopurinol 300 MG Orally Once a day 1 tablet 24h Mar, 90 days Active Plavix 75 MG Orally Once a day 1 tablet 24h 90 days Active Colchicine 0.6 MG Orally as directed 1 tablet Active RESULTS No Results PROCEDURES No Known [...]
--- OUTSIDE RECORDS SUMMARY | 2019-03-26 16:38 | XMS REPORT ---
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 46111013 Problem Other chronic pain G89.29 Active 97613900 Problem Panlobular emphysema J43.1 Active 1287233 Problem DDD (degenerative disc disease), lumbar M51.36 Active 21162703 Problem Arthritis of left knee M17.12 Active 3770006227017677 Problem Essential hypertension I10 Active 88217945 Problem Current smoker F17.200 Active 55956236 ALLERGIES No Known Allergies ENCOUNTERS Encounter Location Date Diagnosis [facility] [address] [place] [address] [id number] Jun, DDD (degenerative disc disease), lumbar M51.36 ; PAD (peripheral artery disease) I73.9 and Other chronic pain G89.29 [email or web address] [address] [place] [address] [id number] May, Acute upper respiratory infection, unspecified J06.9 ; Other viral agents as the cause of diseases classified elsewhere B97.89 ; Pharyngitis due to other organism J02.8 ; Other chronic pain G89.29 and DDD (degenerative disc disease), lumbar M51.36 [email or web address] [address] [place] [address] [id number] May, Cough R05 ; COPD with exacerbation J44.1 and Sore throat J02.9 [facility] [address] [place] [address] [id number] May, [facility] [address] [place] [address] [id number] Apr, DDD (degenerative disc disease), lumbar M51.36 and Other chronic pain G89.29 [facility] [address] [place] [address] [id number] Apr, [facility] [address] [place] [address] [id number] Mar, [facility] [address] [place] [address] [id number] Mar, [facility] [address] [place] [address] [id number] Mar, [facility] [address] [place] [address] [id number] Mar, Current mild episode of major depressive disorder without prior episode F32.0 [facility] [address] [place] [address] [id number] Mar, DDD (degenerative disc disease), lumbar M51.36 ; PAD (peripheral artery disease) I73.9 and 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 [facility] [address] [place] [address] [id number] Mar, [facility] [address] [place] [address] [id number] Jan, DDD (degenerative disc disease), lumbar M51.36 ; 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 ; Screening, anemia, deficiency, iron Z13.0 ; Screening PSA (prostate specific antigen) Z12.5 ; Screening for lipid disorders Z13.220 and Essential hypertension I10 [facility] [address] [place] [address] [id number] Dec, PAD (peripheral artery disease) I73.9 ; Essential hypertension I10 ; Current smoker F17.200 ; DDD (degenerative disc disease), lumbar M51.36 ; Screening, anemia, deficiency, iron Z13.0 ; Screening for lipid disorders Z13.220 ; Screen for colon cancer Z12.11 ; Screening PSA (prostate specific antigen) Z12.5 ; COPD with exacerbation J44.1 and 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 [facility] [address] [place] [address] [id number] Nov, DDD (degenerative disc disease), lumbar M51.36 ; Other chronic pain G89.29 ; Essential hypertension I10 and Current smoker F17.200 [email or web address] [address] [place] [address] [id number] Oct, Other chronic pain G89.29 ; Essential hypertension I10 ; Arthritis of left knee M17.12 ; Arthritis of left shoulder region M19.012 ; DDD (degenerative disc disease), lumbar M51.36 and Current smoker F17.200 [email or web address] [address] [place] [address] [id number] Sep, [email or web address] [address] [place] [address] [id number] Sep, [email or web address] [address] [place] [address] [id number] Aug, [email or web address] [address] [place] [address] [id number] Jul, [email or web address] [address] [place] [address] [id number] May, [facility] [address] [place] [address] [id number] May, [facility] [address] [place] [address] [id number] Apr, IMMUNIZATIONS No Known Immunizations SOCIAL HISTORY Never Assessed REASON FOR VISIT med follow up PLAN OF CARE Activity Details Follow Up 4 Weeks Reason:narcotic taper VITAL SIGNS Temperature 98.6 degrees Fahrenheit 2018-07-22 Heart Rate 63 /min 2018-07-22 Respiratory Rate 18 /min 2018-07-22 Oximetry 98 % 2018-07-22 Weight 192.6 lbs 2018-07-22 Height 67 in 2018-07-22 BMI 30.16 kg/m2 2018-07-22 Blood pressure systolic 135 mm Hg 2018-07-22 Blood pressure diastolic 85 mm Hg 2018-07-22 MEDICATIONS Medication Instructions Dosage Frequency Start Date End Date Duration Status Allopurinol 300 MG Orally Once a day 1 tablet 24h Mar, 90 days Active Oxycodone HCl 10 mg take 1 tablet by Oral route up to 4 times per day PRN Aug, 30 days Active Aleve 220 MG Orally every 12 hrs 1 tablet with food or milk as needed 12h Active Lisinopril 40 MG Orally Once a day at bedtime 1 tablet Nov, 90 days Active Advair Diskus 100-50 MCG/DOSE Inhalation Twice a day 1 puff 12h Active Plavix 75 MG Orally Once a day 1 tablet 24h 90 days Active RESULTS No Results PROCEDURES [...]
--- OUTSIDE RECORDS SUMMARY | 2019-03-26 16:38 | XMS REPORT ---
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 90638401 Problem Other chronic pain G89.29 Active 16960408 Problem Panlobular emphysema J43.1 Active 0484093 Problem DDD (degenerative disc disease), lumbar M51.36 Active 07180051 Problem Arthritis of left knee M17.12 Active 7585016424653876 Problem Essential hypertension I10 Active 73332341 Problem Current smoker F17.200 Active 88269324 ALLERGIES No Known Allergies SOCIAL HISTORY Never Assessed PLAN OF CARE Activity Details Follow Up 4 Weeks,prn Reason:routine VITAL SIGNS Temperature 96.7 degrees Fahrenheit 2017-12-04 Heart Rate 76 /min 2017-12-04 Respiratory Rate 18 /min 2017-12-04 Oximetry 100 % 2017-12-04 Weight 191 lbs 2017-12-04 Height 67 in 2017-12-04 BMI 29.91 kg/m2 2017-12-04 Blood pressure systolic 154 mm Hg 2017-12-04 Blood pressure diastolic 100 mm Hg 2017-12-04 MEDICATIONS Medication Instructions Dosage Frequency Start Date End Date Duration Status Advair Diskus 100-50 MCG/DOSE Inhalation Twice a day 1 puff 12h Active Oxycodone HCl 10 mg take 1 tablet by Oral route up to 4 times per day PRN Aug, 30 days Active Plavix 75 MG Orally Once a day 1 tablet 24h 30 day(s) Active Lisinopril 40 MG Orally Once a day at bedtime 1 tablet Nov, 90 days Active Allopurinol 100 MG Orally Once a day 1 tablet 24h 30 day(s) Active RESULTS No Results PROCEDURES No Known procedures IMMUNIZATIONS No Known Immunizations MEDICAL (GENERAL) HISTORY Type Description Date Medical [...]
--- OUTSIDE RECORDS SUMMARY | 2019-03-26 16:38 | XMS REPORT ---
Author Author Mya Bonilla Organization [facility] Address [address] [place] [address] Care Team Providers Care Video Operator Name Role Phone Mya Bonilla Unavailable PROBLEMS Type Condition ICD9-CM Code [id number] Code Onset Dates Condition Status SNOMED Code Problem Unspecified atherosclerosis of [place] arteries of extremities, bilateral legs I70.203 Active 222326109673972 Problem Nicotine dependence, unspecified, with other nicotine-induced disorders F17.208 Active 69953365 Problem Personal history of nicotine dependence Z87.891 Active 31796328 Problem Primary generalized (osteo)arthritis M15.0 Active 169110606 Problem Essential (primary) hypertension I10 Active 99004627 Problem Mixed hyperlipidemia E78.2 Active 880924831 Problem Chronic obstructive pulmonary disease, unspecified J44.9 Active 98532276 Problem Chronic viral hepatitis C B18.2 Active 351662542 ALLERGIES Unknown Allergies SOCIAL HISTORY No smoking Hx information available PLAN OF CARE VITAL SIGNS MEDICATIONS Medication Instructions Dosage Frequency Start Date End Date Duration Status Lisinopril-Hydrochlorothiazide 20-12.5 MG Orally Once a day 1 tablet 24h May, 30 days Active Plavix 75 MG Orally Once a day 1 tablet 24h May, 30 days Active RESULTS No Results PROCEDURES No Known procedures IMMUNIZATIONS No Known Immunizations
--- OUTSIDE RECORDS SUMMARY | 2019-03-26 16:38 | XMS REPORT ---
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 80730946 Problem Other chronic pain G89.29 Active 27160660 Problem Panlobular emphysema J43.1 Active 1719368 Problem DDD (degenerative disc disease), lumbar M51.36 Active 70758141 Problem Arthritis of left knee M17.12 Active 5594391597746828 Problem Essential hypertension I10 Active 71664401 Problem Current smoker F17.200 Active 77774828 ALLERGIES No Information ENCOUNTERS Encounter Location Date Diagnosis [facility] [address] [place] [address] [id number] May, [facility] [address] [place] [address] [id number] Apr, DDD (degenerative disc disease), lumbar M51.36 and Other chronic pain G89.29 [facility] [address] [place] [address] [id number] Apr, [facility] [address] [place] [address] [id number] Mar, [facility] [address] [place] [address] [id number] Mar, [facility] [address] [place] [address] [id number] Mar, [facility] [address] [place] [address] [id number] Mar, Current mild episode of major depressive disorder without prior episode F32.0 [facility] [address] [place] [address] [id number] Mar, DDD (degenerative disc disease), lumbar M51.36 ; PAD (peripheral artery disease) I73.9 and 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 [facility] [address] [place] [address] [id number] Mar, [facility] [address] [place] [address] [id number] Jan, DDD (degenerative disc disease), lumbar M51.36 ; 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 ; Screening, anemia, deficiency, iron Z13.0 ; Screening PSA (prostate specific antigen) Z12.5 ; Screening for lipid disorders Z13.220 and Essential hypertension I10 [facility] [address] [place] [address] [id number] Dec, PAD (peripheral artery disease) I73.9 ; Essential hypertension I10 ; Current smoker F17.200 ; DDD (degenerative disc disease), lumbar M51.36 ; Screening, anemia, deficiency, iron Z13.0 ; Screening for lipid disorders Z13.220 ; Screen for colon cancer Z12.11 ; Screening PSA (prostate specific antigen) Z12.5 ; COPD with exacerbation J44.1 and 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 [facility] [address] [place] [address] [id number] Nov, DDD (degenerative disc disease), lumbar M51.36 ; Other chronic pain G89.29 ; Essential hypertension I10 and Current smoker F17.200 [facility] [address] [place] [address] [id number] Oct, Other chronic pain G89.29 ; Essential hypertension I10 ; Arthritis of left knee M17.12 ; Arthritis of left shoulder region M19.012 ; DDD (degenerative disc disease), lumbar M51.36 and Current smoker F17.200 [facility] [address] [place] [address] [id number] Sep, [facility] [address] [place] [address] [id number] Sep, [facility] [address] [place] [address] [id number] Aug, [facility] [address] [place] [address] [id number] Jul, [facility] [address] [place] [address] [id number] May, [facility] [address] [place] [address] [id number] May, [facility] [address] [place] [address] [id number] Apr, IMMUNIZATIONS No Known Immunizations SOCIAL HISTORY Never Assessed REASON FOR VISIT Rx Topical Cream ([facility]) PLAN OF CARE VITAL SIGNS MEDICATIONS Unknown Medications RESULTS No Results PROCEDURES No Known procedures [...]
--- OUTSIDE RECORDS SUMMARY | 2019-03-26 16:38 | XMS REPORT ---
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 58053792 Problem Other chronic pain G89.29 Active 31855496 Problem Panlobular emphysema J43.1 Active 8448896 Problem DDD (degenerative disc disease), lumbar M51.36 Active 59532920 Problem Arthritis of left knee M17.12 Active 2506601940032716 Problem Essential hypertension I10 Active 39540575 Problem Current smoker F17.200 Active 42440628 ALLERGIES No Known Allergies ENCOUNTERS Encounter Location Date Diagnosis [facility] [address] [place] [address] [id number] May, Acute upper respiratory infection, unspecified J06.9 ; Other viral agents as the cause of diseases classified elsewhere B97.89 ; Pharyngitis due to other organism J02.8 ; Other chronic pain G89.29 and DDD (degenerative disc disease), lumbar M51.36 [facility] [address] [place] [address] [id number] May, Cough R05 ; COPD with exacerbation J44.1 and Sore throat J02.9 [facility] [address] [place] [address] [id number] May, [facility] [address] [place] [address] [id number] Apr, DDD (degenerative disc disease), lumbar M51.36 and Other chronic pain G89.29 [facility] [address] [place] [address] [id number] Apr, [facility] [address] [place] [address] [id number] Mar, [facility] [address] [place] [address] [id number] Mar, [facility] [address] [place] [address] [id number] Mar, [facility] [address] [place] [address] [id number] Mar, Current mild episode of major depressive disorder without prior episode F32.0 [facility] [address] [place] [address] [id number] Mar, DDD (degenerative disc disease), lumbar M51.36 ; PAD (peripheral artery disease) I73.9 and 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 [facility] [address] [place] [address] [id number] Mar, [facility] [address] [place] [address] [id number] Jan, DDD (degenerative disc disease), lumbar M51.36 ; 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 ; Screening, anemia, deficiency, iron Z13.0 ; Screening PSA (prostate specific antigen) Z12.5 ; Screening for lipid disorders Z13.220 and Essential hypertension I10 [facility] [address] [place] [address] [id number] Dec, PAD (peripheral artery disease) I73.9 ; Essential hypertension I10 ; Current smoker F17.200 ; DDD (degenerative disc disease), lumbar M51.36 ; Screening, anemia, deficiency, iron Z13.0 ; Screening for lipid disorders Z13.220 ; Screen for colon cancer Z12.11 ; Screening PSA (prostate specific antigen) Z12.5 ; COPD with exacerbation J44.1 and 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 [facility] [address] [place] [address] [id number] Nov, DDD (degenerative disc disease), lumbar M51.36 ; Other chronic pain G89.29 ; Essential hypertension I10 and Current smoker F17.200 [facility] [address] [place] [address] [id number] Oct, Other chronic pain G89.29 ; Essential hypertension I10 ; Arthritis of left knee M17.12 ; Arthritis of left shoulder region M19.012 ; DDD (degenerative disc disease), lumbar M51.36 and Current smoker F17.200 [facility] [address] [place] [address] [id number] Sep, [facility] [address] [place] [address] [id number] Sep, [facility] [address] [place] [address] [id number] Aug, [facility] [address] [place] [address] [id number] Jul, [facility] [address] [place] [address] [id number] May, [facility] [address] [place] [address] [id number] May, [facility] [address] [place] [address] [id number] Apr, IMMUNIZATIONS Vaccine Route Administration Date Status Depo Medrol 80 mg (systemic) IM Intramuscular Jun 12, 2018 Administered SOCIAL HISTORY Never Assessed REASON FOR VISIT Chest Cold PLAN OF CARE Activity Details Follow Up 4 Weeks Reason:pain med refilled/BP Pending Test Rapid Strep Grp. A (IH) VITAL SIGNS Temperature 98.3 degrees Fahrenheit 2018-06-12 Heart Rate 88 /min 2018-06-12 Respiratory Rate 16 /min 2018-06-12 Oximetry 99 % 2018-06-12 Weight 191.6 lbs 2018-06-12 Height 67 in 2018-06-12 BMI 30.01 kg/m2 2018-06-12 Blood pressure systolic 155 mm Hg 2018-06-12 Blood pressure diastolic 93 mm Hg 2018-06-12 MEDICATIONS Medication Instructions Dosage Frequency Start Date End Date Duration Status Advair Diskus 100-50 MCG/DOSE Inhalation Twice a day 1 puff 12h Active Lisinopril 40 MG Orally Once a day at bedtime 1 tablet Nov, 90 days Active Aleve 220 MG Orally every 12 hrs 1 tablet with food or milk as needed 12h Active Amoxicillin 875 MG Orally every 12 hrs 1 tablet 12h May, 10 day(s) Active Oxycodone HCl 10 mg take 1 tablet by Oral route up to 4 times per day PRN Aug, 30 days Active Allopurinol 300 MG Orally Once a day 1 tablet 24h Mar, 90 days Active Plavix 75 MG Orally Once a day 1 tablet 24h 90 days Not-Taking GuaiFENesin ER 1200 MG Orally every 12 hrs 1 tablet as needed 12h 13 May, 2018 30 days Not-Taking RESULTS No Results PROCEDURES Procedure Date Ordered Result Body Site STREP A ASSAY W/OPTIC Jun 12, 2018 INJ METHYLPRDNISOLONE ACTAT 80 MG Jun 12, 2018 THER/PROPH/DIAG INJ, SC/IM Jun 12, 2018 INSTRUCTIONS MEDICATIONS ADMINISTERED No Known Medications [...]
--- OUTSIDE RECORDS SUMMARY | 2019-03-26 16:38 | XMS REPORT ---
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 10149914 Problem Other chronic pain G89.29 Active 44538994 Problem Panlobular emphysema J43.1 Active 1536571 Problem DDD (degenerative disc disease), lumbar M51.36 Active 08104822 Problem Arthritis of left knee M17.12 Active 6147204801270829 Problem Essential hypertension I10 Active 00839631 Problem Current smoker F17.200 Active 67183176 ALLERGIES No Known Allergies ENCOUNTERS Encounter Location Date Diagnosis [facility] [address] [place] [address] [id number] May, Acute upper respiratory infection, unspecified J06.9 ; Other viral agents as the cause of diseases classified elsewhere B97.89 ; Pharyngitis due to other organism J02.8 ; Other chronic pain G89.29 and DDD (degenerative disc disease), lumbar M51.36 [facility] [address] [place] [address] [id number] May, Cough R05 ; COPD with exacerbation J44.1 and Sore throat J02.9 [facility] [address] [place] [address] [id number] May, [facility] [address] [place] [address] [id number] Apr, DDD (degenerative disc disease), lumbar M51.36 and Other chronic pain G89.29 [facility] [address] [place] [address] [id number] Apr, [facility] [address] [place] [address] [id number] Mar, [facility] [address] [place] [address] [id number] Mar, [facility] [address] [place] [address] [id number] Mar, [facility] [address] [place] [address] [id number] Mar, Current mild episode of major depressive disorder without prior episode F32.0 [facility] [address] [place] [address] [id number] Mar, DDD (degenerative disc disease), lumbar M51.36 ; PAD (peripheral artery disease) I73.9 and 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 [facility] [address] [place] [address] [id number] Mar, [facility] [address] [place] [address] [id number] Jan, DDD (degenerative disc disease), lumbar M51.36 ; 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 ; Screening, anemia, deficiency, iron Z13.0 ; Screening PSA (prostate specific antigen) Z12.5 ; Screening for lipid disorders Z13.220 and Essential hypertension I10 [facility] [address] [place] [address] [id number] Dec, PAD (peripheral artery disease) I73.9 ; Essential hypertension I10 ; Current smoker F17.200 ; DDD (degenerative disc disease), lumbar M51.36 ; Screening, anemia, deficiency, iron Z13.0 ; Screening for lipid disorders Z13.220 ; Screen for colon cancer Z12.11 ; Screening PSA (prostate specific antigen) Z12.5 ; COPD with exacerbation J44.1 and 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 [facility] [address] [place] [address] [id number] Nov, DDD (degenerative disc disease), lumbar M51.36 ; Other chronic pain G89.29 ; Essential hypertension I10 and Current smoker F17.200 [facility] [address] [place] [address] [id number] Oct, Other chronic pain G89.29 ; Essential hypertension I10 ; Arthritis of left knee M17.12 ; Arthritis of left shoulder region M19.012 ; DDD (degenerative disc disease), lumbar M51.36 and Current smoker F17.200 [facility] [address] [place] [address] [id number] Sep, [facility] [address] [place] [address] [id number] Sep, [facility] [address] [place] [address] [id number] Aug, [facility] [address] [place] [address] [id number] Jul, [facility] [address] [place] [address] [id number] May, [facility] [address] [place] [address] [id number] May, [facility] [address] [place] [address] [id number] Apr, IMMUNIZATIONS No Known Immunizations SOCIAL HISTORY Never Assessed REASON FOR VISIT possible strep per PLAN OF CARE Activity Details Follow Up 3 Months,prn Reason:f/u VITAL SIGNS Heart Rate 94 /min 2018-06-10 Respiratory Rate 20 /min 2018-06-10 Oximetry 99 % 2018-06-10 Weight 191 lbs 2018-06-10 Height 67 in 2018-06-10 BMI 29.91 kg/m2 2018-06-10 Blood pressure systolic 153 mm Hg 2018-06-10 Blood pressure diastolic 79 mm Hg 2018-06-10 MEDICATIONS Medication Instructions Dosage Frequency Start Date End Date Duration Status Allopurinol 300 MG Orally Once a day 1 tablet 24h Mar, 90 days Active Oxycodone HCl 10 mg take 1 tablet by Oral route up to 4 times per day PRN Aug, 30 days Active Amoxicillin 875 MG Orally every 12 hrs 1 tablet 12h May, 10 day(s) Active GuaiFENesin ER 1200 MG Orally every 12 hrs 1 tablet as needed 12h May, 30 days Active Plavix 75 MG Orally Once a day 1 tablet 24h 90 days Active Advair Diskus 100-50 MCG/DOSE Inhalation Twice a day 1 puff 12h Active Aleve 220 MG Orally every 12 hrs 1 tablet with food or milk as needed 12h Active Lisinopril 40 MG Orally Once a day at bedtime 1 tablet Nov, 90 days Active Colchicine 0.6 MG Orally [...]
--- OUTSIDE RECORDS SUMMARY | 2019-03-26 16:38 | XMS REPORT ---
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 03208356 Problem Other chronic pain G89.29 Active 51110334 Problem Panlobular emphysema J43.1 Active 8359621 Problem DDD (degenerative disc disease), lumbar M51.36 Active 20953102 Problem Arthritis of left knee M17.12 Active 7795480496850622 Problem Essential hypertension I10 Active 38995113 Problem Current smoker F17.200 Active 49192100 ALLERGIES No Information ENCOUNTERS Encounter Location Date Diagnosis [facility] [address] [place] [address] [id number] May, [facility] [address] [place] [address] [id number] May, Cough R05 ; COPD with exacerbation J44.1 and Sore throat J02.9 [facility] [address] [place] [address] [id number] May, [facility] [address] [place] [address] [id number] Apr, DDD (degenerative disc disease), lumbar M51.36 and Other chronic pain G89.29 [facility] [address] [place] [address] [id number] Apr, [facility] [address] [place] [address] [id number] Mar, [facility] [address] [place] [address] [id number] Mar, [facility] [address] [place] [address] [id number] Mar, [facility] [address] [place] [address] [id number] Mar, Current mild episode of major depressive disorder without prior episode F32.0 [facility] [address] [place] [address] [id number] Mar, DDD (degenerative disc disease), lumbar M51.36 ; PAD (peripheral artery disease) I73.9 and 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 [facility] [address] [place] [address] [id number] Mar, [facility] [address] [place] [address] [id number] Jan, DDD (degenerative disc disease), lumbar M51.36 ; 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 ; Screening, anemia, deficiency, iron Z13.0 ; Screening PSA (prostate specific antigen) Z12.5 ; Screening for lipid disorders Z13.220 and Essential hypertension I10 [facility] [address] [place] [address] [id number] Dec, PAD (peripheral artery disease) I73.9 ; Essential hypertension I10 ; Current smoker F17.200 ; DDD (degenerative disc disease), lumbar M51.36 ; Screening, anemia, deficiency, iron Z13.0 ; Screening for lipid disorders Z13.220 ; Screen for colon cancer Z12.11 ; Screening PSA (prostate specific antigen) Z12.5 ; COPD with exacerbation J44.1 and 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 [facility] [address] [place] [address] [id number] Nov, DDD (degenerative disc disease), lumbar M51.36 ; Other chronic pain G89.29 ; Essential hypertension I10 and Current smoker F17.200 [facility] [address] [place] [address] [id number] Oct, Other chronic pain G89.29 ; Essential hypertension I10 ; Arthritis of left knee M17.12 ; Arthritis of left shoulder region M19.012 ; DDD (degenerative disc disease), lumbar M51.36 and Current smoker F17.200 [facility] [address] [place] [address] [id number] Sep, [facility] [address] [place] [address] [id number] Sep, [facility] [address] [place] [address] [id number] Aug, [facility] [address] [place] [address] [id number] Jul, [facility] [address] [place] [address] [id number] May, [facility] [address] [place] [address] [id number] May, [facility] [address] [place] [address] [id number] Apr, IMMUNIZATIONS No Known Immunizations SOCIAL HISTORY Never Assessed REASON FOR VISIT Throat swollen/Appointment Needed PLAN OF CARE VITAL SIGNS MEDICATIONS Unknown [...]
--- OUTSIDE RECORDS SUMMARY | 2019-03-26 16:38 | XMS REPORT ---
Author Author Mya Bonilla Organization [facility] Address [address] [place] [address] Care Team Providers Care Radio Presenter Name Role Phone Irene Mya Unavailable PROBLEMS Type Condition ICD9-CM Code XLF75-AE Code Onset Dates Condition Status SNOMED Code Problem Nicotine dependence, unspecified, with other nicotine-induced disorders F17.208 Active 24629419 Problem Mixed hyperlipidemia E78.2 Active 809986692 Problem Unspecified atherosclerosis of [place] arteries of extremities, bilateral legs I70.203 Active 607237275586296 Problem Chronic gout due to renal impairment, left knee, 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
--- OUTSIDE RECORDS SUMMARY | 2019-03-26 16:39 | XMS REPORT ---
Author Author Mya Bonilla Organization [facility] Address [address] [place] [address] Care Team Providers Care Desktop Engineer Name Role Phone Mya Bonilla Unavailable PROBLEMS Type Condition ICD9-CM Code QOT92-BF Code Onset Dates Condition Status SNOMED Code Problem Unspecified atherosclerosis of [place] arteries of extremities, bilateral legs I70.203 Active 237351756650770 Problem Nicotine dependence, unspecified, with other nicotine-induced disorders F17.208 Active 00915644 Problem Personal history of nicotine dependence Z87.891 Active 72634687 Problem Primary generalized (osteo)arthritis M15.0 Active 051850960 Problem Essential (primary) hypertension I10 Active 65234407 Problem Mixed hyperlipidemia E78.2 Active 402976156 Problem Chronic obstructive pulmonary disease, unspecified J44.9 Active 69955041 Problem Chronic viral hepatitis C B18.2 Active 804587230 ALLERGIES Substance Reaction Event Type Date Status N.K.D.A. Unknown Non Drug Allergy Mar, Unknown SOCIAL HISTORY No smoking Hx information available PLAN OF CARE Activity Details Follow Up 6 Months provided lab is ok Reason:null VITAL SIGNS Height 63 in 2017-04-10 Weight [id number] lbs 2017-04-10 BMI 36.75 kg/m2 2017-04-10 Heart Rate 81 /min 2017-04-10 Temperature 98.1 degrees Fahrenheit 2017-04-10 Blood pressure systolic 134 mm Hg 2017-04-10 Blood pressure diastolic 86 mm Hg 2017-04-10 MEDICATIONS Medication Instructions Dosage Frequency Start Date End Date Duration Status [place] 5-325 MG Orally every 6 hrs 1 tablet as needed 6h Active Plavix 75 MG Orally Once a day 1 tablet 24h May, Active Albuterol Sulfate HFA 108 (90 Base) MCG/ACT Inhalation QID prn 2 puffs Nov, Active Lisinopril-Hydrochlorothiazide 20-12.5 MG Orally Once a day 1 tablet 24h May, Active Atorvastatin Calcium 20 MG Orally Once a day 1 tablet 24h Active RESULTS No Results PROCEDURES Procedure Date Ordered Related Diagnosis Body Site Office Visit, Est Pt., Level 3 April 10, 2017 IMMUNIZATIONS No Known Immunizations
--- OUTSIDE RECORDS SUMMARY | 2019-03-26 16:39 | XMS REPORT ---
Author Author Mya Bonilla Organization [facility] Address [address] [place] [address] Care Team Providers Care Hvac Journeyman Name Role Phone Mya Bonilla Unavailable PROBLEMS Type Condition ICD9-CM Code BYG50-CV Code Onset Dates Condition Status SNOMED Code Assessment Primary generalized (osteo)arthritis M15.0 Dec, Active 252068330 Problem Unspecified atherosclerosis of [place] arteries of extremities, bilateral legs I70.203 Active 56234174 Problem Nicotine dependence, unspecified, with other nicotine-induced disorders F17.208 Active Problem Personal history of nicotine dependence Z87.891 Active 14331238 Problem Primary generalized (osteo)arthritis M15.0 Active 394148277 Problem Essential (primary) hypertension I10 Active 43959196 Problem Mixed hyperlipidemia E78.2 Active 899785786 Problem Chronic obstructive pulmonary disease, unspecified J44.9 Active 87981826 Problem Chronic viral hepatitis C B18.2 Active 139335980 ALLERGIES Unknown Allergies SOCIAL HISTORY No smoking Hx information available PLAN OF CARE VITAL SIGNS MEDICATIONS Unknown Medications RESULTS No Results PROCEDURES No Known procedures IMMUNIZATIONS No Known Immunizations
--- OUTSIDE RECORDS SUMMARY | 2019-03-26 16:39 | XMS REPORT ---
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 44023213 Problem Other chronic pain G89.29 Active 91555750 Problem Panlobular emphysema J43.1 Active 3050281 Problem DDD (degenerative disc disease), lumbar M51.36 Active 77716546 Problem Arthritis of left knee M17.12 Active 1115132088236677 Problem Essential hypertension I10 Active 52254364 Problem Current smoker F17.200 Active 75295148 ALLERGIES No Known Allergies ENCOUNTERS Encounter Location Date Diagnosis [facility] [address] [place] [address] [id number] May, [facility] [address] [place] [address] [id number] Apr, DDD (degenerative disc disease), lumbar M51.36 and Other chronic pain G89.29 [facility] [address] [place] [address] [id number] Apr, [facility] [address] [place] [address] [id number] Mar, [facility] [address] [place] [address] [id number] Mar, [facility] [address] [place] [address] [id number] Mar, [facility] [address] [place] [address] [id number] Mar, Current mild episode of major depressive disorder without prior episode F32.0 [facility] [address] [place] [address] [id number] Mar, DDD (degenerative disc disease), lumbar M51.36 ; PAD (peripheral artery disease) I73.9 and 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 [facility] [address] [place] [address] [id number] Mar, [facility] [address] [place] [address] [id number] Jan, DDD (degenerative disc disease), lumbar M51.36 ; 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 ; Screening, anemia, deficiency, iron Z13.0 ; Screening PSA (prostate specific antigen) Z12.5 ; Screening for lipid disorders Z13.220 and Essential hypertension I10 [facility] [address] [place] [address] [id number] Dec, PAD (peripheral artery disease) I73.9 ; Essential hypertension I10 ; Current smoker F17.200 ; DDD (degenerative disc disease), lumbar M51.36 ; Screening, anemia, deficiency, iron Z13.0 ; Screening for lipid disorders Z13.220 ; Screen for colon cancer Z12.11 ; Screening PSA (prostate specific antigen) Z12.5 ; COPD with exacerbation J44.1 and 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 [facility] [address] [place] [address] [id number] Nov, DDD (degenerative disc disease), lumbar M51.36 ; Other chronic pain G89.29 ; Essential hypertension I10 and Current smoker F17.200 [facility] [address] [place] [address] [id number] Oct, Other chronic pain G89.29 ; Essential hypertension I10 ; Arthritis of left knee M17.12 ; Arthritis of left shoulder region M19.012 ; DDD (degenerative disc disease), lumbar M51.36 and Current smoker F17.200 [facility] [address] [place] [address] [id number] Sep, [facility] [address] [place] [address] [id number] Sep, [facility] [address] [place] [address] [id number] Aug, [facility] [address] [place] [address] [id number] Jul, [facility] [address] [place] [address] [id number] May, [facility] [address] [place] [address] [id number] May, [facility] [address] [place] [address] [id number] Apr, IMMUNIZATIONS No Known Immunizations SOCIAL HISTORY Never Assessed REASON FOR VISIT checkup appointment to discuss health planning PLAN OF CARE Activity Details Follow Up 4 Weeks,prn Reason:routine: pain med refill VITAL SIGNS Temperature 97.9 degrees Fahrenheit 2018-04-01 Heart Rate 80 /min 2018-04-01 Respiratory Rate 18 /min 2018-04-01 Oximetry 100 % 2018-04-01 Weight 196.2 lbs 2018-04-01 Height 67 in 2018-04-01 BMI 30.73 kg/m2 2018-04-01 Blood pressure systolic 126 mm Hg 2018-04-01 Blood pressure diastolic 79 mm Hg 2018-04-01 MEDICATIONS Medication Instructions Dosage Frequency Start Date End Date Duration Status Plavix 75 MG Orally Once a day 1 tablet 24h 90 days Active Oxycodone HCl 10 mg take 1 tablet by Oral route up to 4 times per day PRN Aug, 30 days Active Allopurinol 300 MG Orally Once a day 1 tablet 24h Mar, 90 days Active Colchicine Active Aleve 220 MG Orally every 12 [...]
--- OUTSIDE RECORDS SUMMARY | 2019-03-26 16:39 | XMS REPORT ---
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 92841617 Problem Other chronic pain G89.29 Active 08724876 Problem Panlobular emphysema J43.1 Active 8314623 Problem DDD (degenerative disc disease), lumbar M51.36 Active 33808459 Problem Arthritis of left knee M17.12 Active 7419711574172670 Problem Essential hypertension I10 Active 25074700 Problem Current smoker F17.200 Active 04016361 ALLERGIES No Information ENCOUNTERS Encounter Location Date Diagnosis [facility] [address] [place] [address] [id number] May, [facility] [address] [place] [address] [id number] Apr, DDD (degenerative disc disease), lumbar M51.36 and Other chronic pain G89.29 [facility] [address] [place] [address] [id number] Apr, [facility] [address] [place] [address] [id number] Mar, [facility] [address] [place] [address] [id number] Mar, [facility] [address] [place] [address] [id number] Mar, [facility] [address] [place] [address] [id number] Mar, Current mild episode of major depressive disorder without prior episode F32.0 [facility] [address] [place] [address] [id number] Mar, DDD (degenerative disc disease), lumbar M51.36 ; PAD (peripheral artery disease) I73.9 and 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 [facility] [address] [place] [address] [id number] Mar, [facility] [address] [place] [address] [id number] Jan, DDD (degenerative disc disease), lumbar M51.36 ; 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 ; Screening, anemia, deficiency, iron Z13.0 ; Screening PSA (prostate specific antigen) Z12.5 ; Screening for lipid disorders Z13.220 and Essential hypertension I10 [facility] [address] [place] [address] [id number] Dec, PAD (peripheral artery disease) I73.9 ; Essential hypertension I10 ; Current smoker F17.200 ; DDD (degenerative disc disease), lumbar M51.36 ; Screening, anemia, deficiency, iron Z13.0 ; Screening for lipid disorders Z13.220 ; Screen for colon cancer Z12.11 ; Screening PSA (prostate specific antigen) Z12.5 ; COPD with exacerbation J44.1 and 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 [facility] [address] [place] [address] [id number] Nov, DDD (degenerative disc disease), lumbar M51.36 ; Other chronic pain G89.29 ; Essential hypertension I10 and Current smoker F17.200 [facility] [address] [place] [address] [id number] Oct, Other chronic pain G89.29 ; Essential hypertension I10 ; Arthritis of left knee M17.12 ; Arthritis of left shoulder region M19.012 ; DDD (degenerative disc disease), lumbar M51.36 and Current smoker F17.200 [facility] [address] [place] [address] [id number] Sep, [facility] [address] [place] [address] [id number] Sep, [facility] [address] [place] [address] [id number] Aug, [facility] [address] [place] [address] [id number] Jul, [facility] [address] [place] [address] [id number] May, [facility] [address] [place] [address] [id number] May, [facility] [address] [place] [address] [id number] Apr, IMMUNIZATIONS No Known Immunizations SOCIAL HISTORY Never Assessed REASON FOR VISIT Rx: [facility] PLAN OF CARE VITAL SIGNS MEDICATIONS Unknown [...]
--- OUTSIDE RECORDS SUMMARY | 2019-03-26 16:39 | XMS REPORT ---
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 15004258 Problem DDD (degenerative disc disease), lumbar M51.36 Active 23260429 Problem Other chronic pain G89.29 Active 01285925 Problem Essential hypertension I10 Active 80560693 Problem Arthritis of left knee M17.12 Active 1998596348143250 Problem Arthritis of left shoulder region M19.012 Active 2405080988903504 Problem Current smoker F17.200 Active 30002209 Problem Panlobular emphysema J43.1 Active 1184730 ALLERGIES No Known Allergies SOCIAL HISTORY Never Assessed PLAN OF CARE Activity Details Follow Up prn Reason:routine VITAL SIGNS Temperature 97.5 degrees Fahrenheit 2017-11-07 Heart Rate 78 /min 2017-11-07 Respiratory Rate 18 /min 2017-11-07 Oximetry 100 % 2017-11-07 Weight 192 lbs 2017-11-07 Height 67 in 2017-11-07 BMI 30.07 kg/m2 2017-11-07 Blood pressure systolic 161 mm Hg 2017-11-07 Blood pressure diastolic 102 mm Hg 2017-11-07 MEDICATIONS Medication Instructions Dosage Frequency Start Date End Date Duration Status Advair Diskus 100-50 MCG/DOSE Inhalation Twice a day 1 puff 12h Active Oxycodone HCl 10 mg take 1 tablet by Oral route up to 4 times per day PRN Aug, 30 days Active Lisinopril-Hydrochlorothiazide 20-12.5 MG Orally Once a day 1 tablet 24h 30 day(s) Active Plavix 75 MG Orally Once a day 1 tablet 24h 30 day(s) Active Allopurinol 100 MG Orally Once a [...]
--- OUTSIDE RECORDS SUMMARY | 2019-03-26 16:39 | XMS REPORT ---
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 68331695 Problem Other chronic pain G89.29 Active 22451525 Problem Panlobular emphysema J43.1 Active 3699954 Problem DDD (degenerative disc disease), lumbar M51.36 Active 06914958 Problem Arthritis of left knee M17.12 Active 1997444967195429 Problem Essential hypertension I10 Active 95133127 Problem Current smoker F17.200 Active 04352190 ALLERGIES No Information ENCOUNTERS Encounter Location Date Diagnosis [facility] [address] [place] [address] [id number] May, [facility] [address] [place] [address] [id number] Apr, DDD (degenerative disc disease), lumbar M51.36 and Other chronic pain G89.29 [facility] [address] [place] [address] [id number] Apr, [facility] [address] [place] [address] [id number] Mar, [facility] [address] [place] [address] [id number] Mar, [facility] [address] [place] [address] [id number] Mar, [facility] [address] [place] [address] [id number] Mar, Current mild episode of major depressive disorder without prior episode F32.0 [facility] [address] [place] [address] [id number] Mar, DDD (degenerative disc disease), lumbar M51.36 ; PAD (peripheral artery disease) I73.9 and 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 [facility] [address] [place] [address] [id number] Mar, [facility] [address] [place] [address] [id number] Jan, DDD (degenerative disc disease), lumbar M51.36 ; 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 ; Screening, anemia, deficiency, iron Z13.0 ; Screening PSA (prostate specific antigen) Z12.5 ; Screening for lipid disorders Z13.220 and Essential hypertension I10 [facility] [address] [place] [address] [id number] Dec, PAD (peripheral artery disease) I73.9 ; Essential hypertension I10 ; Current smoker F17.200 ; DDD (degenerative disc disease), lumbar M51.36 ; Screening, anemia, deficiency, iron Z13.0 ; Screening for lipid disorders Z13.220 ; Screen for colon cancer Z12.11 ; Screening PSA (prostate specific antigen) Z12.5 ; COPD with exacerbation J44.1 and 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 [facility] [address] [place] [address] [id number] Nov, DDD (degenerative disc disease), lumbar M51.36 ; Other chronic pain G89.29 ; Essential hypertension I10 and Current smoker F17.200 [facility] [address] [place] [address] [id number] Oct, Other chronic pain G89.29 ; Essential hypertension I10 ; Arthritis of left knee M17.12 ; Arthritis of left shoulder region M19.012 ; DDD (degenerative disc disease), lumbar M51.36 and Current smoker F17.200 [facility] [address] [place] [address] [id number] Sep, [facility] [address] [place] [address] [id number] Sep, [facility] [address] [place] [address] [id number] Aug, [facility] [address] [place] [address] [id number] Jul, [facility] [address] [place] [address] [id number] May, [facility] [address] [place] [address] [id number] May, [facility] [address] [place] [address] [phone] Apr, IMMUNIZATIONS No Known Immunizations SOCIAL HISTORY Never Assessed REASON FOR VISIT Prior Authorization - APPROVED PLAN OF CARE VITAL SIGNS MEDICATIONS Unknown [...]
--- OUTSIDE RECORDS SUMMARY | 2019-03-26 16:39 | XMS REPORT ---
Author Author Mya Bonilla Organization [facility] Address [address] [place] [address] Care Team Providers Care Trophy Assembler Name Role Phone Irene Mya Unavailable PROBLEMS Type Condition ICD9-CM Code IWF58-EH Code Onset Dates Condition Status SNOMED Code Problem Nicotine dependence, unspecified, with other nicotine-induced disorders F17.208 Active 68780989 Problem Mixed hyperlipidemia E78.2 Active 145473822 Problem Unspecified atherosclerosis of [place] arteries of extremities, bilateral legs I70.203 Active 009914092345746 Problem Chronic gout due to renal impairment, left knee, 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
--- OUTSIDE RECORDS SUMMARY | 2019-03-26 16:39 | XMS REPORT ---
Author Author David Bonillaeen Organization [facility] Address [address] [place] [address] Care Team Providers Care Certified Ethical Hacker Name Role Phone Mya Bonilla Unavailable PROBLEMS Type Condition ICD9-CM Code [id number] Code Onset Dates Condition Status SNOMED Code Problem Nicotine dependence, unspecified, with other nicotine-induced disorders F17.208 Active 32272210 Problem Mixed hyperlipidemia E78.2 Active 439485970 Problem Unspecified atherosclerosis of 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 Unknown Non Drug Allergy Apr, Unknown SOCIAL HISTORY No smoking Hx information available PLAN OF CARE Activity Details Follow Up 6 Weeks, prn Reason:null Pending Test COMPREHENSIVE METABOLIC PANEL Pending Test URIC ACID VITAL SIGNS Height 63 in 2017-05-28 Weight 195.0 lbs 2017-05-28 BMI 34.54 kg/m2 2017-05-28 Heart Rate 77 /min 2017-05-28 Temperature 97.9 degrees Fahrenheit 2017-05-28 Blood pressure systolic 143 mm Hg 2017-05-28 Blood pressure diastolic 84 mm Hg 2017-05-28 MEDICATIONS Medication Instructions Dosage Frequency Start Date End Date Duration Status Allopurinol 300 MG Orally Once a day 1 tablet 24h Apr, 90 Active Lisinopril-Hydrochlorothiazide 20-12.5 MG Orally Once a day 1 tablet 24h Active Atorvastatin Calcium 20 MG Orally Once a day 1 tablet 24h Active Colchicine 0.6 MG Orally three times a day (tid) 1 tablet Apr, Aug, 30 day(s) Active Plavix 75 MG Orally Once a day 1 tablet 24h Active Albuterol Sulfate HFA 108 (90 Base) MCG/ACT Inhalation QID prn 2 puffs Nov, Active Oxycodone-Acetaminophen 10-325 MG Orally every 6 hrs 1 tablet as needed 6h Active RESULTS No Results PROCEDURES Procedure Date Ordered Related Diagnosis Body Site ASSAY OF BLOOD/URIC ACID May 28, 2017 COMPREHEN METABOLIC PANEL May 28, 2017 Office Visit, Est Pt., Level 3 May 28, 2017 IMMUNIZATIONS No Known Immunizations
--- OUTSIDE RECORDS SUMMARY | 2019-03-26 16:39 | XMS REPORT ---
Author Author Mya Bonilla Organization [facility] Address [address] [place] [address] Care Team Providers Care Manager Telemarketing Name Role Phone Mya Bonilla Unavailable PROBLEMS Type Condition ICD9-CM Code [id number] Code Onset Dates Condition Status SNOMED Code Assessment Essential (primary) hypertension I10 Nov, Active 55885152 Problem Unspecified atherosclerosis of [place] arteries of extremities, bilateral legs I70.203 Active 91546768 Problem Nicotine dependence, unspecified, with other nicotine-induced disorders F17.208 Active Problem Personal history of nicotine dependence Z87.891 Active 46914657 Problem Primary generalized (osteo)arthritis M15.0 Active 821926887 Problem Essential (primary) hypertension I10 Active 54152629 Problem Mixed hyperlipidemia E78.2 Active 965181578 Problem Chronic obstructive pulmonary disease, unspecified J44.9 Active 90015494 Problem Chronic viral hepatitis C B18.2 Active 001318302 ALLERGIES Substance Reaction Event Type Date Status N.K.D.A. Unknown Non Drug Allergy Nov, Unknown SOCIAL HISTORY No smoking Hx information available PLAN OF CARE Activity Details Pending Test COMPREHENSIVE METABOLIC PANEL Pending Test CBC (H/H, RBC, INDICES, WBC, PLT) Pending Test [id number] QN Pending Test ALPHA FETOPROTEIN, TUMOR MARKER Pending Test HEPATITIS C VIRAL RNA, GENOTYPE LIPA Pending Test GGT Pending Test HEPATITIS PANEL, GENERAL Pending Test LIPID PANEL Pending Test PARTIAL THROMBOPLASTIN TIME, ACTIVATED Pending Test URINALYSIS W/ REFLEX TO MICROSCOPIC Pending Test SED RATE BY MODIFIED WESTERGREN Pending Test PROTHROMBIN TIME-INR Pending Test BERTO PANEL 1 W/ REFLEXES 3 Months,Reason: VITAL SIGNS Height 63 in 2016-12-25 Weight 212.12 lbs 2016-12-25 BMI 37.57 kg/m2 2016-12-25 Heart Rate 86 /min 2016-12-25 Temperature 98.3 degrees Fahrenheit 2016-12-25 Blood pressure systolic 137 mm Hg 2016-12-25 Blood pressure diastolic 88 mm Hg 2016-12-25 MEDICATIONS Medication Instructions Dosage Frequency Start Date End Date Duration Status Morrison 5-325 MG Orally every 6 hrs 1 tablet as needed 6h Active Plavix 75 mg Orally Once a day 1 tablet 24h May, Active Lisinopril-Hydrochlorothiazide 20-12.5 MG Orally Once a day 1 tablet 24h May, Active Atorvastatin Calcium 20 mg Orally Once a day 1 tablet 24h May, Active Albuterol Sulfate HFA 108 (90 Base) MCG/ACT Inhalation QID prn 2 puffs Nov, 90 Active RESULTS No Results PROCEDURES Procedure Date Ordered Related Diagnosis Body Site NUCLEAR ANTIGEN ANTIBODY (TOUR BUS DRIVER AB) Dec 25, 2016 RBC SED RATE, AUTOMATED Dec 25, 2016 ANTINUCLEAR ANTIBODIES Dec 25, 2016 ASSAY, BLD/SERUM CHOLESTEROL Dec 25, 2016 ASSAY OF LIPOPROTEIN Dec 25, 2016 URINALYSIS, AUTO, W/O SCOPE Dec 25, 2016 ASSAY OF TRIGLYCERIDES Dec 25, 2016 Office Visit, Est Pt., Level 4 Dec 25, 2016 RHEUMATOID FACTOR, QUANT Dec 25, 2016 FLUORESCENT ANTIBODY, SCREEN Dec 25, 2016 [id number], TOTAL Dec 25, 2016 COMPREHEN METABOLIC PANEL Dec 25, 2016 HEPATITIS C AB TEST Dec 25, 2016 ASSAY OF GGT Dec 25, 2016 HEP A ANTIBODY, TOTAL Dec 25, 2016 COMPLETE CBC, AUTOMATED Dec 25, 2016 HEP B SURFACE ANTIBODY Dec 25, 2016 ALPHA-FETOPROTEIN, SERUM Dec 25, 2016 HEP B CORE ANTIBODY, TOTAL Dec 25, 2016 HEPATITIS B SURFACE AG, EIA Dec 25, 2016 GENOTYPE, DNA, HEPATITIS C Dec 25, 2016 PROTHROMBIN TIME Dec 25, 2016 THROMBOPLASTIN TIME, PARTIAL Dec 25, 2016 IMMUNIZATIONS No Known Immunizations
--- OUTSIDE RECORDS SUMMARY | 2019-03-26 16:39 | XMS REPORT ---
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 09123548 Problem Other chronic pain G89.29 Active 81506049 Problem Panlobular emphysema J43.1 Active 5978706 Problem DDD (degenerative disc disease), lumbar M51.36 Active 13323231 Problem Arthritis of left knee M17.12 Active 5075986034230654 Problem Essential hypertension I10 Active 91171760 Problem Current smoker F17.200 Active 64726532 ALLERGIES No Information ENCOUNTERS Encounter Location Date Diagnosis [facility] [address] [place] [address] [id number] May, [facility] [address] [place] [address] [id number] Apr, DDD (degenerative disc disease), lumbar M51.36 and Other chronic pain G89.29 [facility] [address] [place] [address] [id number] Apr, [facility] [address] [place] [address] [id number] Mar, [facility] [address] [place] [address] [id number] Mar, [facility] [address] [place] [address] [id number] Mar, [facility] [address] [place] [address] [id number] Mar, Current mild episode of major depressive disorder without prior episode F32.0 [facility] [address] [place] [address] [id number] Mar, DDD (degenerative disc disease), lumbar M51.36 ; PAD (peripheral artery disease) I73.9 and 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 [facility] [address] [place] [address] [id number] Mar, [facility] [address] [place] [address] [id number] Jan, DDD (degenerative disc disease), lumbar M51.36 ; 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 ; Screening, anemia, deficiency, iron Z13.0 ; Screening PSA (prostate specific antigen) Z12.5 ; Screening for lipid disorders Z13.220 and Essential hypertension I10 [facility] [address] [place] [address] [id number] Dec, PAD (peripheral artery disease) I73.9 ; Essential hypertension I10 ; Current smoker F17.200 ; DDD (degenerative disc disease), lumbar M51.36 ; Screening, anemia, deficiency, iron Z13.0 ; Screening for lipid disorders Z13.220 ; Screen for colon cancer Z12.11 ; Screening PSA (prostate specific antigen) Z12.5 ; COPD with exacerbation J44.1 and 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 [facility] [address] [place] [address] [id number] Nov, DDD (degenerative disc disease), lumbar M51.36 ; Other chronic pain G89.29 ; Essential hypertension I10 and Current smoker F17.200 [facility] [address] [place] [address] [id number] Oct, Other chronic pain G89.29 ; Essential hypertension I10 ; Arthritis of left knee M17.12 ; Arthritis of left shoulder region M19.012 ; DDD (degenerative disc disease), lumbar M51.36 and Current smoker F17.200 [facility] [address] [place] [address] [id number] Sep, [facility] [address] [place] [address] [id number] Sep, [facility] [address] [place] [address] [id number] Aug, [facility] [address] [place] [address] [id number] Jul, [facility] [address] [place] [address] [id number] May, [facility] [address] [place] [address] [id number] May, [facility] [address] [place] [address] [id number] Apr, IMMUNIZATIONS No Known Immunizations SOCIAL HISTORY Never Assessed REASON FOR VISIT Rx [facility] PLAN OF CARE VITAL SIGNS MEDICATIONS Unknown [...]
--- OUTSIDE RECORDS SUMMARY | 2019-03-26 16:39 | XMS REPORT ---
Author Author Mya Bonilla Organization [facility] Address [address] [place] [address] Care Team Providers Care Healthcare Science Specialist Name Role Phone Mya Bonilla Unavailable PROBLEMS Type Condition ICD9-CM Code GGB56-FI Code Onset Dates Condition Status SNOMED Code Problem Unspecified atherosclerosis of [place] arteries of extremities, bilateral legs I70.203 Active 99429611 Problem Nicotine dependence, unspecified, with other nicotine-induced disorders F17.208 Active Problem Personal history of nicotine dependence Z87.891 Active 17837425 Problem Primary generalized (osteo)arthritis M15.0 Active 820091225 Problem Essential (primary) hypertension I10 Active 54714014 Problem Mixed hyperlipidemia E78.2 Active 137617221 Problem Chronic obstructive pulmonary disease, unspecified J44.9 Active 15648855 Problem Chronic viral hepatitis C B18.2 Active 260252688 ALLERGIES Unknown Allergies SOCIAL HISTORY No smoking Hx information available PLAN OF CARE VITAL SIGNS MEDICATIONS Medication Instructions Dosage Frequency Start Date End Date Duration Status Lisinopril-Hydrochlorothiazide 20-12.5 MG Orally Once a day 1 tablet 24h May, 90 days Active RESULTS No Results PROCEDURES No Known procedures IMMUNIZATIONS No Known Immunizations
--- OUTSIDE RECORDS SUMMARY | 2019-03-26 16:40 | XMS REPORT ---
Author Author Mya Bonilla Organization [facility] Address [address] [place] [address] Care Team Providers Care Heel Reducer Name Role Phone Mya Bonilla Unavailable PROBLEMS Type Condition ICD9-CM Code ISV27-GL Code Onset Dates Condition Status SNOMED Code Problem Unspecified atherosclerosis of [place] arteries of extremities, bilateral legs I70.203 Active 133810170887034 Problem Nicotine dependence, unspecified, with other nicotine-induced disorders F17.208 Active 93043241 Problem Personal history of nicotine dependence Z87.891 Active 13828635 Problem Primary generalized (osteo)arthritis M15.0 Active 144304386 Problem Essential (primary) hypertension I10 Active 94279023 Problem Mixed hyperlipidemia E78.2 Active 613975066 Problem Chronic obstructive pulmonary disease, unspecified J44.9 Active 80054289 Problem Chronic viral hepatitis C B18.2 Active 152045436 ALLERGIES Unknown Allergies SOCIAL HISTORY No smoking Hx information available PLAN OF CARE VITAL SIGNS MEDICATIONS Unknown Medications RESULTS No Results PROCEDURES No Known procedures IMMUNIZATIONS No Known Immunizations
--- OUTSIDE RECORDS SUMMARY | 2019-03-26 16:40 | XMS REPORT | Continuity of Care Document ---
Author Organization Unknown Address Unknown Allergies Active Description Code Type Severity Reaction Onset Reported/Identified Relationship to Patient Clinical Status Yes No Known Allergies No Known Allergies Drug Allergy Unknown N/A 03/28/2017 Medications There is no data. Problems Date Dx Coded Attending Type Code Diagnosis Diagnosed By 01/05/2017 Maria R KNOWLES, Hugo Schreiber M15.0 PRIMARY GENERALIZED (OSTEO)ARTHRITIS 08/30/2017 MELISSA PETTIT G89.29 OTHER CHRONIC PAIN Procedures Code [place] [address] DRUG SCREEN, SINGLE 04/30/2017 Results Test Result Range CREATININE BEDSIDE - 01/31/17 13:39 METHOD Bedside CREATININE 0.9 mg/dL 0.7-1.3 PDM - FENTANYL - 01/01/19 13:13 Prescribed Drug 1 Oxycodone NRG COMMENT NRG Prescribed Drug 2 Oxycodone NRG Fentanyl NEGATIVE ng/mL <0.5 medMATCH Fentanyl CONSISTENT NRG Norfentanyl NEGATIVE ng/mL <0.5 [facility]MATCH Norfentanyl CONSISTENT NRG Radiology Report from [facility] on 06/23/2016 23:25:00 DIAGNOSTIC IMAGING REPORT [facility] - [address] [address] PHONE #: [phone] FAX #: [phone] Name: ARMOND ANTONIO Loc: [facility] Radiology No: : 1955 Age: 60 Sex: M Status: REG ER Unit No: [id number] Phys: Edinson Holm MD Acct: [id number] Reason For Exam: fall, pain, LEFT KNEE PAIN Exam Date: 06/23/2016 EXAMS: CPT CODE: [id number] KNEE LEFT 3 VIEWS 10186 PROCEDURE: - KNEE LEFT 3 VIEWS TIME OF EXAM: 06/23/2016 11:04 PM REASON FOR EXAM: fall, pain, LEFT KNEE PAIN COMPARISON: None. FINDINGS: 3 views of the left knee show no fractures, dislocations, or other acute bony abnormalities identified. Joint spaces are well maintained throughout. Mild degenerative changes are seen. The soft tissues appear unremarkable. Moderate atherosclerosis is seen. No radiopaque foreign bodies are identified. IMPRESSION: No acute fractures or dislocations of the left knee. at 9364 Reported and signed by: VEENA MERCHANT MD CC: Technologist: ASH PARSONS Transcribed Date/Time: 06/23/2016 (5845)Service Station Console Operator: CARLY Printed Date/Time: 06/23/2016 (8755) BATCH NO: N/A PAGE 1 Signed Report Radiology Report from [facility] on 06/24/2016 00:03:00 DIAGNOSTIC IMAGING REPORT [facility] - [address] [address] PHONE #: [phone] FAX #: [phone] Name: ARMOND ANTONIO Loc: [facility] Radiology No: : 1955 Age: 60 Sex: M Status: REG ER Unit No: [id number] Phys: Edinson Holm MD Acct: [id number] Reason For Exam: fall 10 stairs hit head Exam Date: 06/23/2016 EXAMS: CPT CODE: [id number] CT HEAD W/O CONTRAST 40210 TIME OF STUDY: 06/23/2016 11:06 PM REASON FOR EXAM: fall 10 stairs hit head COMPARISON: None. TECHNIQUE: Routine non contrast enhanced axial images were obtained for th e skull base to the vertex. FINDINGS: The ventricles and cortical sulci demonstrate mild diffuse prominence, with generalized parenchymal volume loss. There is no midline shift or mass-effect. No acute intra-axial hemorrhage is present. No evidence of acute territorial ischemia is present. No extra-axial masses or collections are present. There is no focal intra-axial mass. There are nonspecific focal and confluent areas of abnormal low attenuation in the periventricular and subcortical white matter. Castellanos-white matter differentiation is maintained. The bony calvarium is intact. There is fluid in the left maxillary sinus. The left maxillary antrum is atelectatic. The paranasal sinuses are clear. Mastoid air cells are patent. The globes and orbits are unremarkable. IMPRESSION: 1. No CT evidence of acute territorial ischemia. No hemorrhage or focal intra-axial mass. 2. Nonspecific white matter ch anges which may represent age-indeterminate microvascular changes. 3. Generalized parenchymal volume loss. 4. Evidence of chronic sinusitis involving the left maxillary antrum. Exam discussed with Edinson Little MD at 06/23/2016 11:29 PM. I have personally reviewed these images and approved or corrected the resident physician's interpretation. PAGE 1 Signed Report (CONTINUED) DIAGNOSTIC IMAGING REPORT [facility] - [address] [place] [address] PHONE #: [phone] FAX #: [phone] Name: ARMOND ANTONIO Loc: [facility] Radiology No: : 1955 Age: 60 Sex: M Status: [facility] Unit No: [id number] Phys: YESSI Edinson Washington MD Acct: [id number] Reason For Exam: fall 10 stairs hit head Exam Date: 06/23/2016 EXAMS: CPT CODE: [id number] CT HEAD W/O CONTRAST 23062 <Continued> at 4789 RESIDENT: SHAYY BRADLEY DO Reported and signed by: VEENA MERCHANT MD CC: Technologist: МАРИНА GONZALES Transcribed Date/Time: 06/23/2016 (8508)Service Station Console Operator: CARLY Printed Date/Time: 06/24/2016 (0003) BATCH NO: N/A PAGE 2 Signed Report Radiology Report from [facility] on 06/24/2016 00:06:00 DIAGNOSTIC IMAGING REPORT [facility] - [address] [address] PHONE #: [phone] FAX #: [phone] Name: ARMOND NATONIO Loc: [facility] Radiology No: : 1955 Age: 60 Sex: M Status: REG ER Unit No: [id number] Phys: Edinson Holm MD Acct: [id number] Reason For Exam: fall 10 stairs, tender to palp Exam Date: 06/23/2016 EXAMS: CPT CODE: [id number] CT THORACIC SPINE W/O 02141 TIME OF EXAM: 06/23/2016 11:06 PM REASON FOR EXAM: fall 10 stairs, tender to palp midline at approximately T7 level COMPARISON: None. TECHNIQUE: Helical noncontrast-enhanc ed images were obtained through the thoracic spine. Post processed coronal and sagittal reformats were also reviewed. FINDINGS: Reformats demonstrate normal anatomic alignment of the thoracic spine. The disk heights are well maintained. The visualized vertebral bodies are normal in height and contour. No acute compression fractures are seen. There are no large prevertebral or paraspinal masses. There are degenerative changes in the thoracic spine. These are most pronounced at the right costovertebral junction of T7. There is mild irregularity of the left transverse process of L2 (image 140, series 5). The fragments appear corticated and there are no significant inflammatory changes. Soft tissue windows demonstrate no evidence of high density material within the central canal. However, CT scan is suboptimal for evaluation of epidural hematoma and cord injury with hemorrhage within the cord. Included views of the lungs demonstrate no focal lesions. There is atherosclerosis of the abdominal aorta. IMPRESSION: 1. No acute fracture of the thoracic spine. 2. Left transverse process fracture of L2 with imaging characteristics of a subacute or chronic injury. Recommend correlation with physical exam. Exam discussed with Edinson Little MD at 06/23/2016 11:29 PM. I have personally reviewed these images and approved or corrected the PAGE 1 Signed Report (CONTINUED) DIAGNOSTIC IMAGING REPORT [facility] - [address] [place] [address] PHONE #: [phone] FAX #: [phone] Name: ARMOND ANTONIO Loc: [facility] Radiology No: : 1955 Age: 60 Sex: M Status: REG ER Unit No: [id number] Phys: Edinson Holm MD Acct: [id number] Reason For Exam: jacquie for Exam: fall 10 stairs, Exam Date: 06/23/2016 --------- EXAMS: CPT CODE: [id number] CT THORACIC SPINE W/O 61333 <Continued> resident physician's interpretation. at 0001 RESIDENT: SHAYY BRADLEY DO Reported and signed by: VEENA MERCHANT MD CC: Technologist: МАРИНА GONZALES Transcribed Date/Time: 06/24/2016 (0001)Service Station Console Operator: CARLY Printed Date/Time: 06/24/2016 (0006) BATCH NO: N/A PAGE 2 Signed Report Radiology Report from [facility] on 01/22/2017 08:59:00 DIAGNOSTIC IMAGING REPORT [facility] - [address] [place] [address] PHONE #: [phone] FAX #: [phone] Name: ARMOND ANTONIO Loc: [facility] Radiology No: : 1955 Age: 61 Sex: M Status: REG CLI Unit No: [id number] Phys: Mary Perez DO Acct: [id number] Reason For Exam: HEP C B AND A ELEVATED TUMOR MA Exam Date: 01/22/2017 EXAMS: CPT CODE: [id number] [place] [address] REASON FOR EXAM: HEP C B AND A ELEVATED TUMOR MARKER TIME OF EXAM: 01/22/2017 8:13 AM COMPARISON: None available. TECHNIQUE: High resolution grayscale and color-flow ultrasound of the liver and gallbladder was performed. FINDINGS: The liver is normal in size and shape. The liver echogenicity is heterogeneously hyperechoic, consist with fatty infiltration. There is a focal, heterogeneously hypoechoic nodule in the right lobe measuring 1.1 cm (image 48). There is some central blood flow. No intrahepatic biliary dilatation is present. The common bile duct is dilated and measures 8 mm. No other masses are identified. No prominent lymph nodes are apparent. There is no evidence of gallbladder wall thickening or pericholecystic fluid. No stones are present in the gallbladder. The visualized portions of the head and proximal body of the pancreas are within normal limits. The distal body and tail of the pancreas are not well visualized due to overlying bowel gas. Included portions of the aorta and IVC are within normal limits in size. Please note that these vessels are not visible along their entire courses. The right kidney measures approximately 10.1 cm in length and has a normal sonographic appearance. There is no ascites in the right upper quadrant. IMPRESSION: 1. No cholelithiasis or sonographic evidence of acute cholecystitis. The common bile duct is dilated. Recommend correlation with laboratory values. 2. Small nodule in the right hepatic lobe. Given the history of viral hepatitis and elevated tumor marker, this is concerning for malignancy. Recommend additional evaluation with contrast enhanced MRI or CT of the abdomen. PAGE 1 Signed Report (CONTINUED) DIAGNOSTIC IMAGING REPORT [facility] - [address] [place] [address] PHONE #: [phone] FAX #: [phone] Name: PACOARMOND ALATORRE SANDRA Loc: [facility] Radiology No: : 1955 Age: 61 Sex: M Status: REG CLI Unit No: [id number] Phys: Mary Perez DO Acct: [id number] Reason For Exam: jacquie for Exam: HEP C B AND A EL Exam Date: 01/22/2017 EXAMS: CPT CODE: [id number] [place] [address] <Continued> 3. Hepatic steatosis. I have personally reviewed these images and corrected the resident physician's interpretation if necessary. at 0854 RESIDENT: EAMON RAGLAND MD Reported and signed by: EARL OBRIEN MD CC: Mary Wilks DO Technologist: JIMBO BENNETT Transcribed Date/Time: 01/22/2017 (0854)Service Station Console Operator: ERIKA Printed Date/Time: 01/22/2017 (0859) BATCH NO: N/A PAGE 2 Signed Report Radiology Report from [facility] on 01/31/2017 14:29:00 DIAGNOSTIC IMAGING REPORT [facility] - [address] [address] PHONE #: [phone] FAX #: [phone] Name: PACOARMOND ALATORRE SANDRA Loc: [facility] Radiology No: : 1955 Age: 61 Sex: M Status: REG CLI Unit No: [id number] Phys: Rosita Sanchez MD Acct: [id number] Reason For Exam: HEP C Exam Date: 01/31/2017 EXAMS: CPT CODE: [id number] CT ABDOMEN W W/O CONTRAST 75540 INDICATION: Hepatitis C. History of hypertension, smoking. TIME: 01/31/2017 1:47 PM COMPARISON: Liver gallbladder ultrasound 01/22/2017 TECHNIQUE: Pre-and postcontrast helical CT images of the abdomen, with coronal and sagittal reformats. FINDINGS: Trace bibasilar fibro-atelectatic change is noted. Bilateral dependent atelectasis is also noted. Liver parenchyma is diffusely hypoattenuating, consistent with hepatic steatosis. Focal fatty sparing is seen adjacent to the falciform ligament and gallbladder fossa. No focal lesions are seen. The gallbladder, spleen, pancreas, and adrenal glands are unremarkable. Several subcentimeter cortical hypodensities are noted within the kidneys bilaterally, too small to adequately characterize. Included portions of the ureters are unremarkable. The urinary bladder is below the [id number]. The small bowel is nondilated. A few distal colonic diverticula are noted, without wall thickening or pericolonic stranding. The appendix is normal. No free air, free fluid, or loculated collection. Scattered small periaortic lymph nodes are noted, though none enlarged by CT size criteria. Extensive calcified aortoiliac atherosclerosis is noted, without aneurysm. An endovascular stent is noted within the left external iliac artery. There is multilevel degenerative change within the included spine, most prominent at L4-5. A small fat-containing umbilical hernia is noted. IMPRESSION: 1. Hepatic steatosis. No focal lesions. The lesion seen on sonography PAGE 1 Signed Report (CONTINUED) DIAGNOSTIC IMAGING REPORT [facility] - [address] [place] [address] PHONE #: [phone] FAX #: [phone] Name: ARMOND ANTONIO Loc: [facility] Radiology No: : 1955 Age: 61 Sex: M Status: REG I Unit No: [id number] Phys: Rosita Sanchez MD Acct: [id number] Reason For Exam: jacquie for Exam: HEP C Exam Date: 01/31/2017 EXAMS: CPT CODE: [id number] CT ABDOMEN W W/O CONTRAST 35920 <Continued> probably represents an area of focal fatty sparing or heterogeneous fatty infiltration. 2. Distal colonic diverticula without CT evidence of acute diverticulitis. 3. Extensive aortoiliac atherosclerosis, without aneurysm. I have personally reviewed these images and corrected the resident physician's interpretation if necessary. at 1424 RESIDENT: BLANK PAGE MD Reported and signed by: SUE PADILLA MD CC: Rosita Burroughs MD; Mary Wilks DO Technologist: NADEEN PERRY Transcribed Date/Time: 01/31/2017 (8670)Service Station Console Operator: [email or web address] Printed Date/Time: 01/31/2017 (7442) BATCH NO: N/A PAGE 2 Signed Report Encounters ACCT No. Visit Date/Time Discharge Status Pt. Type Provider Facility Loc./Unit Complaint [id number] 08/30/2017 09:12:00 08/30/2017 23:59:59 CLS Outpatient MELISSA PETTIT [id number] 01/01/2019 12:40:00 01/01/2019 23:59:59 CLS Outpatient CASI KNOWLES, KEL Perdomo [facility] [id number] 01/01/2019 12:40:00 Document Registration [id number] 03/28/2017 16:54:00 03/28/2017 19:42:00 DIS Emergency Christi KNOWLES, Vicky [facility] [id number] 01/31/2017 12:59:00 01/31/2017 12:59:00 DIS Outpatient Manjeet KNOWLES, Rosita Roca [facility] [id number] 01/22/2017 07:45:00 01/22/2017 07:45:00 DIS Outpatient Mary Wilks DO [facility] W.[facility]ALPH [id number] 01/11/2017 17:53:00 01/11/2017 19:40:00 [id number] 01/05/2017 10:15:00 01/05/2017 23:59:59 CLS Outpatient Maria R KNOWLES, Hugo Sanderson [facility] W.RAD [id number] 06/23/2016 21:58:00 06/24/2016 00:38:00 DIS Emergency Anabel KNOWLES, Edinson Chavez [facility].VICK [id number] 05/10/2016 11:46:00 05/10/2016 12:36:00 DIS Emergency Jr KNOWLES, Pascual Godinez [facility]
--- OUTSIDE RECORDS SUMMARY | 2019-03-26 16:40 | XMS REPORT ---
Author Author Mya Bonilla Organization [facility] Address [address] [place] [address] Care Team Providers Care Director Of Assessing Name Role Phone Mya Bonilla Unavailable PROBLEMS Type Condition ICD9-CM Code VZW88-DR Code Onset Dates Condition Status SNOMED Code Problem Unspecified atherosclerosis of [place] arteries of extremities, bilateral legs I70.203 Active 646516868707844 Problem Essential (primary) hypertension I10 Active 63121309 Problem Mixed hyperlipidemia E78.2 Active 209015944 Problem Nicotine dependence, unspecified, with other nicotine-induced disorders F17.208 Active 51780710 Problem Chronic gout due to renal impairment, left knee, 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 Active 27808741 Problem Pain in left knee M25.562 Active 990432322781795 Problem Chronic obstructive pulmonary disease, unspecified J44.9 Active 32741279 Problem Chronic viral hepatitis C B18.2 Active 779589064 Problem Personal history of nicotine dependence Z87.891 Active 12332992 Problem Primary generalized (osteo)arthritis M15.0 Active 194336410 ALLERGIES No Known Allergies SOCIAL HISTORY Never Assessed PLAN OF CARE Activity Details Follow Up 6 Weeks, prn Reason:null VITAL SIGNS Height 63 in 2017-05-28 Weight [...] PROCEDURES Procedure Date Ordered Result Body Site ASSAY OF BLOOD/URIC ACID May 28, 2017 COMPREHEN METABOLIC PANEL May 28, 2017 IMMUNIZATIONS No Known Immunizations MEDICAL (GENERAL) HISTORY Type Description Date Medical History Hep C - chronic. Medical History High cholesterol Medical History HTN Medical History in 2013. Medical History PVD - has stent in left leg and angioplasty in right leg. Medical History osteomyelitis of right rib cage with spread to blood. Medical History COPD Medical History Smoker Medical History Tedonitis of b/l shoulder Surgical History Rt lower shoulder, fat tissue removed - [place] 2008 Surgical History osteomyelitis, Rt side of chest - [place] 2014 Hospitalization History osteomyelitis -3days - [place] 2014 Hospitalization History osteomyelitis-4days- [facility] 2014 Hospitalization History osteomyelitis, antibiotic treatment- 1 1/2 mths [facility] 2014
--- OUTSIDE RECORDS SUMMARY | 2019-03-26 16:40 | XMS REPORT ---
Author Author Mya Bonilla Organization [facility] Address [address] [place] [address] Care Team Providers Care Birdcage Assembler Name Role Phone Mya Bonilla Unavailable PROBLEMS Type Condition ICD9-CM Code RND24-AB Code Onset Dates Condition Status SNOMED Code Problem Unspecified atherosclerosis of [place] arteries of extremities, bilateral legs I70.203 Active 06630232 Problem Nicotine dependence, unspecified, with other nicotine-induced disorders F17.208 Active Problem Personal history of nicotine dependence Z87.891 Active 98764275 Problem Primary generalized (osteo)arthritis M15.0 Active 163439699 Problem Essential (primary) hypertension I10 Active 34555664 Problem Mixed hyperlipidemia E78.2 Active 499382994 Problem Chronic obstructive pulmonary disease, unspecified J44.9 Active 07646719 Problem Chronic viral hepatitis C B18.2 Active 364482194 ALLERGIES Unknown Allergies SOCIAL HISTORY No smoking Hx information available PLAN OF CARE VITAL SIGNS MEDICATIONS Medication Instructions Dosage Frequency Start Date End Date Duration Status Plavix 75 MG Orally Once a day 1 tablet 24h May, 90 days Active RESULTS No Results PROCEDURES No Known procedures IMMUNIZATIONS No Known Immunizations
--- OUTSIDE RECORDS SUMMARY | 2019-03-26 16:40 | XMS REPORT ---
Author Author Mya Bonilla Organization [facility] Address [address] [place] [address] Care Team Providers Care Consumer Sales Representative Name Role Phone Mya Bonilla Unavailable PROBLEMS Type Condition ICD9-CM Code NBZ12-VT Code Onset Dates Condition Status SNOMED Code Assessment Chronic viral hepatitis C B18.2 Dec, Active 941995357 Problem Unspecified atherosclerosis of [place] arteries of extremities, bilateral legs I70.203 Active 93596367 Problem Nicotine dependence, unspecified, with other nicotine-induced disorders F17.208 Active Problem Personal history of nicotine dependence Z87.891 Active 52795400 Problem Primary generalized (osteo)arthritis M15.0 Active 773735357 Problem Essential (primary) hypertension I10 Active 64648217 Problem Mixed hyperlipidemia E78.2 Active 958622369 Problem Chronic obstructive pulmonary disease, unspecified J44.9 Active 75706447 Problem Chronic viral hepatitis C B18.2 Active 051458005 ALLERGIES Unknown Allergies SOCIAL HISTORY No smoking Hx information available PLAN OF CARE VITAL SIGNS MEDICATIONS Unknown Medications RESULTS No Results PROCEDURES No Known procedures IMMUNIZATIONS No Known Immunizations
--- OUTSIDE RECORDS SUMMARY | 2019-03-26 16:40 | XMS REPORT ---
Author Author Mya Bonilla Organization [facility] Address [address] [place] [address] Care Team Providers Care Dialysis Social Worker Name Role Phone Mya Bonilla Unavailable PROBLEMS Type Condition ICD9-CM Code HPD96-DH Code Onset Dates Condition Status SNOMED Code Problem Unspecified atherosclerosis of [place] arteries of extremities, bilateral legs I70.203 Active 82582047 Problem Nicotine dependence, unspecified, with other nicotine-induced disorders F17.208 Active 85553705 Problem Personal history of nicotine dependence Z87.891 Active 19732008 Problem Primary generalized (osteo)arthritis M15.0 Active 626554479 Problem Essential (primary) hypertension I10 Active 19976125 Problem Mixed hyperlipidemia E78.2 Active 191708028 Problem Chronic obstructive pulmonary disease, unspecified J44.9 Active 28286423 Problem Chronic viral hepatitis C B18.2 Active 927688959 ALLERGIES Unknown Allergies SOCIAL HISTORY No smoking Hx information available PLAN OF CARE VITAL SIGNS MEDICATIONS Unknown Medications RESULTS No Results PROCEDURES No Known procedures IMMUNIZATIONS No Known Immunizations
--- OUTSIDE RECORDS SUMMARY | 2019-03-26 16:40 | XMS REPORT ---
Author Author Mya Bonilla Organization [facility] Address [address] [place] [address] Care Team Providers Care Drone Pilot Name Role Phone Mya Bonilla Unavailable PROBLEMS Type Condition ICD9-CM Code SZH74-DE Code Onset Dates Condition Status SNOMED Code Problem Unspecified atherosclerosis of [place] arteries of extremities, bilateral legs I70.203 Active 35653798 Problem Nicotine dependence, unspecified, with other nicotine-induced disorders F17.208 Active Problem Personal history of nicotine dependence Z87.891 Active 12894493 Problem Primary generalized (osteo)arthritis M15.0 Active 482080412 Problem Essential (primary) hypertension I10 Active 10511954 Problem Mixed hyperlipidemia E78.2 Active 085972695 Problem Chronic obstructive pulmonary disease, unspecified J44.9 Active 52109564 Problem Chronic viral hepatitis C B18.2 Active 461967672 ALLERGIES Unknown Allergies SOCIAL HISTORY No smoking Hx information available PLAN OF CARE VITAL SIGNS MEDICATIONS Medication Instructions Dosage Frequency Start Date End Date Duration Status Atorvastatin Calcium 20 MG Orally Once a day 1 tablet 24h May, 90 days Active RESULTS No Results PROCEDURES No Known procedures IMMUNIZATIONS No Known Immunizations
--- NOTE | 2019-03-26 17:56 | NUR ---
PT CO OF R EAR PAIN AND DIZZINESS
[2019-03-26] MEDS ORDERED: NS IV 1000 ML 1,000 ML IV ONE (18:30)
--- NOTE | 2019-03-26 19:10 | NUR ---
blood obtained, 2rn's unable to obtain iv access. erp notified.
--- NOTE | 2019-03-26 19:13 | ED General ---
General Chief Complaint: Dizziness/Syncope Stated Complaint: CANT HEAR OUT OF R EAR / DIZZY Nursing Triage Note: Pt to triage in wheelchair. Pt reports dizziness that began on Sunday night. Pt reports when the dizzy spells occur it feels as if "the room is spinning." Pt c/o "small headache" on the right side, "hearing off" on the right side and pt reports R side of body feels weaker. Pt reports a couple of falls due to the dizzy spells. Pt denies LOC or injury related to falls. Pt reports taking lisinopril and amlodipine, but ran out of amlodipine Sunday. Pt reports chronic back pain. Nursing Sepsis Screen: No Definite Risk Source of Information: Patient Exam Limitations: No Limitations History of Present Illness Date Seen by Provider: March 26, 2019 Time Seen by Provider: 18:15 Initial Comments This 63-year-old gentleman presents to the emergency room with complaints of disequilibrium, dizziness, decreased hearing in the right ear, and right-sided weakness since March 24. He has some difficulty with ambulation because of this. He feels like he tilts to the right. He takes lisinopril/HCTZ and amlodipine for hypertension. He has been out of the amlodipine for about 4-5 days. Oropharynx appears dry. On assessment no weaknesses appreciated on the right side but he does have balance difficulty both with standing and walking. Patient states his dizziness feels both like a spinning or vertigo as well as a lightheadedness. This is worse in the sitting and standing position and better with lying flat. He does not have significant exacerbation with head movement. Patient occasionally drinks alcohol and had his last alcoholic drink about a week ago. He last used methamphetamines over the weekend. He also admits to smoking tobacco and marijuana. He does not have a local primary care provider as he has recently moved back to the area. He did see Dr. Gamino in the remote past. He is afebrile. He complains of gout in the left knee. Disequilibrium is the only neurologic deficit observed during assessment and exam. Stroke activation was not paged as these symptoms are 48 hours old. Patient is also not a TPA candidate due to 48 hours from time of onset. He recently moved here from the [facility], [place]. He is noncompliant with his amlodipine and Plavix because he has not established with a local provider yet. He is on SSI disability for back pain. Allergies and Home Medications Allergies Coded Allergies: No Known Drug Allergies (Unverified , 03/26/19) Patient Home Medication List Home Medication List Reviewed: Yes Review of Systems Review of Systems Constitutional: no symptoms reported EENTM: see HPI Respiratory: no symptoms reported Cardiovascular: see HPI Gastrointestinal: other (dyspepsia) Genitourinary: no symptoms reported Musculoskeletal: see HPI Skin: no symptoms reported Psychiatric/Neurological: See HPI Hematologic/Lymphatic: No Symptoms Reported Immunological/Allergic: no symptoms reported Past Ibsccpv-Pwomze-Buemys Hx Past Med/Social Hx: Reviewed and Corrections made Patient Social History Alcohol Use: Occasionally Uses Recreational Drug Use: Yes Drug of Choice: marijuana, methamphetamines Smoking Status: Current Everyday Smoker Type Used: Cigarettes 2nd Hand Smoke Exposure: Yes Recent Foreign Travel: No Contact w/Someone Who Travel: No Recent Infectious Disease Expo: No Recent Hopitalizations: No Seasonal Allergies Seasonal Allergies: No Past Medical History Surgeries: Yes (chest for osteomyelitis) Vascular Surgery (peripheral vascular stenting) Respiratory: Yes COPD Cardiac: Yes Hypertension, Peripheral Vascular Neurological: No Genitourinary: No Gastrointestinal: No Musculoskeletal: Yes Arthritis, Chronic Back Pain (resulting in disability), Gout Endocrine: No HEENT: No Cancer: No Psychosocial: Yes (polysubstance abuse) Blood Disorders: No Adverse Reaction/Blood Tranf: No Physical Exam Vital Signs Vital Signs - First Documented 03/26/19 17:00 Temp 96.8 Pulse 81 Resp 16 B/P (MAP) 150/99 (116) Pulse Ox 94 O2 Delivery Room Air Capillary Refill : Less Than 3 Seconds Height, Weight, BMI Height: 5'7.00" Weight: 199lbs. oz. 90.502789ta; BMI Method:Stated General Appearance: No Apparent Distress, WD/WN HEENT: PERRL/EOMI, TMs Normal, Normal ENT Inspection, Other (oropharynx appears dry) Neck: Normal Inspection, Supple; No Carotid Bruit, No JVD Respiratory: Lungs Clear, Normal Breath Sounds, No Accessory Muscle Use, No Respiratory Distress Cardiovascular: Regular Rate, Rhythm, No Edema, No Murmur Gastrointestinal: Normal Bowel Sounds, Non Tender, Soft Extremity: Normal Inspection, No Pedal Edema Neurologic/Psychiatric: Alert, Oriented x3, No Motor/Sensory Deficits, Normal Mood/Affect, channel rougher II-XII Norm as Tested, Other (disequilibrium with standing and walking. No other focal deficits) Skin: Normal Color, Warm/Dry Progress/Results/Core Measures Suspected Sepsis Recent Fever Within 48 Hours: No Infection Criteria Present: None New/Unexplained Altered Menta: No Sepsis Screen: No Definite Risk SIRS Temperature:96.8 Pulse: 81 Respiratory Rate: 16 Laboratory Tests 03/26/19 19:10: White Blood Count 11.2H Blood Pressure 150 /99 Mean: 116 Laboratory Tests 03/26/19 19:10: Creatinine 1.10, Platelet Count 296, Total Bilirubin 0.5 Results/Orders Lab Results Laboratory Tests Test 03/26/19 19:10 03/26/19 20:19 Range/Units White Blood Count 11.2 H 4.3-11.0 10^3/uL Red Blood Count 5.18 4.35-5.85 10^6/uL Hemoglobin 15.4 13.3-17.7 G/DL Hematocrit 46 40-54 % Mean Corpuscular Volume 88 80-99 FL Mean Corpuscular Hemoglobin 30 25-34 PG Mean Corpuscular Hemoglobin Concent 34 32-36 G/DL Red Cell Distribution Width 14.2 10.0-14.5 % Platelet Count 296 130-400 10^3/uL Mean Platelet Volume 9.5 7.4-10.4 FL Neutrophils (%) (Auto) 59 42-75 % Lymphocytes (%) (Auto) 31 12-44 % Monocytes (%) (Auto) 8 0-12 % Eosinophils (%) (Auto) 2 0-10 % Basophils (%) (Auto) 0 0-10 % Neutrophils # (Auto) 6.6 1.8-7.8 X 10^3 Lymphocytes # (Auto) 3.5 1.0-4.0 X 10^3 Monocytes # (Auto) 0.9 0.0-1.0 X 10^3 Eosinophils # (Auto) 0.2 0.0-0.3 10^3/uL Basophils # (Auto) 0.0 0.0-0.1 10^3/uL Sodium Level 138 135-145 MMOL/L Potassium Level 4.3 3.6-5.0 MMOL/L Chloride Level 104 98-107 MMOL/L Carbon Dioxide Level 26 21-32 MMOL/L Anion Gap 8 5-14 MMOL/L Blood Urea Nitrogen 10 7-18 MG/DL Creatinine 1.10 0.60-1.30 MG/DL Estimat Glomerular Filtration Rate > 60 BUN/Creatinine Ratio 9 Glucose Level 95 70-105 MG/DL Calcium Level 10.4 H 8.5-10.1 MG/DL Corrected Calcium 10.2 H 8.5-10.1 MG/DL Magnesium Level 2.2 1.8-2.4 MG/DL Total Bilirubin 0.5 0.1-1.0 MG/DL Aspartate Amino Transf (AST/SGOT) 22 5-34 U/L Alanine Aminotransferase (ALT/SGPT) 17 0-55 U/L Alkaline Phosphatase 87 40-136 U/L Total Protein 8.4 H 6.4-8.2 GM/DL Albumin 4.3 3.2-4.5 GM/DL Serum Alcohol < 10 <10 MG/DL Urine Color TINO H Urine Clarity CLEAR Urine pH 6 5-9 Urine Specific [place] 1.020 1.016-1.022 Urine Protein 1+ H NEGATIVE Urine Glucose (UA) NEGATIVE NEGATIVE Urine Ketones NEGATIVE NEGATIVE Urine Nitrite NEGATIVE NEGATIVE Urine Bilirubin NEGATIVE NEGATIVE Urine Urobilinogen NORMAL NORMAL MG/DL Urine Leukocyte Esterase 1+ H NEGATIVE Urine RBC (Auto) NEGATIVE NEGATIVE Urine RBC NONE /HPF Urine WBC 0-2 /HPF Urine Squamous Epithelial Cells 0-2 /HPF Urine Crystals NONE /LPF Urine Bacteria NEGATIVE /HPF Urine Casts NONE /LPF Urine Mucus NEGATIVE /LPF Urine Culture Indicated NO Urine Opiates Screen POSITIVE H NEGATIVE Urine Oxycodone Screen NEGATIVE NEGATIVE Urine Methadone Screen NEGATIVE NEGATIVE Urine Propoxyphene Screen NEGATIVE NEGATIVE Urine Barbiturates Screen NEGATIVE NEGATIVE Ur Tricyclic Antidepressants Screen NEGATIVE NEGATIVE Urine Phencyclidine Screen NEGATIVE NEGATIVE Urine Amphetamines Screen POSITIVE H NEGATIVE Urine Methamphetamines Screen NEGATIVE NEGATIVE Urine Benzodiazepines Screen POSITIVE H NEGATIVE Urine Cocaine Screen NEGATIVE NEGATIVE Urine Cannabinoids Screen POSITIVE H NEGATIVE My Orders Orders - CELIA CARNEY MD Cbc With Automated Diff (03/26/19 18:14) Comprehensive Metabolic Panel (03/26/19 18:14) Magnesium (03/26/19 18:14) Ua Culture If Indicated (03/26/19 18:14) Ed Iv/Invasive Line Start (03/26/19 18:14) Ekg Tracing (03/26/19 18:14) Monitor-Rhythm Ecg Trace Only (03/26/19 18:14) Alcohol (03/26/19 18:30) Drug Screen Stat (Urine) (03/26/19 18:30) Ns Iv 1000 Ml (Sodium Chloride 0.9%) (03/26/19 18:30) Ct Head Wo-R/O Stroke (03/26/19 19:59) Clopidogrel Tablet (Plavix Tablet) (03/26/19 22:00) Vital Signs/I&O 03/26/19 03/26/19 17:00 22:47 Temp 96.8 97.4 Pulse 81 75 Resp 16 16 B/P (MAP) 150/99 (116) 143/86 (105) Pulse Ox 94 97 O2 Delivery Room Air Room Air Capillary Refill : Less Than 3 Seconds Blood Pressure Mean: 116 Progress Note #1: Time: 19:15 Progress Note Patient seen and examined. Orthostatics were as follows: Lying 115/91, heart rate 79, sitting 145/105, heart rate 80, standing 162/98, heart rate 82. IV fluids have been ordered along with basic labs and EKG. Imaging modalities of the head will be considered after review of labs. Progress Note #2: Time: 21:[address] showed evidence of stroke of indeterminate age. Given presentation of symptoms, he likely has subacute CVA. Case was discussed with Dr. Garcia stroke neurologist at [facility]. He agrees with antiplatelet therapy. We will restart his Plavix. A dose was ordered to receive in the ER. No interventions are appropriate at this time that would require transfer to [facility]. MRI, 2-D echo, and carotid ultrasounds are recommended for the morning. NIH stroke score as performed by nursing staff was zero. Disequilibrium does not register on the NIH stroke score. Case was discussed with Dr. Fernando who agrees with admission. She would like clonidine ordered for hypertensive exacerbation. Pain medications and nausea medications will also be ordered. ECG Initial ECG Impression Date: March 26, 2019 Initial ECG Impression Time: 19:32 Initial ECG Rate: 68 Initial ECG Rhythm: Normal Sinus Initial ECG Intervals: Normal Initial ECG Impression: Normal Comment Normal sinus rhythm with no ST elevation or depression. No abnormal intervals or axis deviation. Diagnostic Imaging Diagonstic Imaging: CT Plain Films/CT/US/NM/MRI: head Comments NAME: ARMOND ANTONIO [facility] REC#: [id number] PT STATUS: REG ER : 1955 PHYSICIAN: CELIA CARNEY MD ADMIT DATE: 03/26/19/ER Draft Date of Exam:03/26/19 CT HEAD WO-R/O STROKE PROCEDURE: CT head wo r/o stroke. TECHNIQUE: Multiple contiguous axial images were obtained through the brain without the use of intravenous contrast. Auto Exposure Controls were utilized during the CT exam to meet ALARA standards for radiation dose reduction. INDICATION: Headache, hearing loss and difficulty walking. Comparison is made with prior examination from 04/04/2008. FINDINGS: There is prominence of the ventricles and sulci. There is some chronic microvascular ischemic disease. There is some more focal encephalomalacia in the left frontal white matter. There is also ill-defined area of decreased attenuation in the right cerebellar hemisphere. There is no hydrocephalus. There is no midline shift. There is no intracranial mass, hemorrhage or extra-axial fluid collection. Calvarium is intact. Sinuses and mastoid air cells are clear. IMPRESSION: Atrophy and some chronic microvascular ischemic disease with more focal area of encephalomalacia in the left frontal white matter and right cerebellar hemisphere. The age of these insults are indeterminate. Possibility of acute CVA certainly cannot be excluded. Recommend clinical correlation and if warranted followup with MRI brain. No acute hemorrhage or other acute abnormality Report was called to [place] [facility] ER at 9:04 p.m., by kenny (for NK). Dictated on workstation # [id number] Dict: 03/26/192014 Trans: 03/26/192105 KENNY [id number] Interpreted by: BALDO HATCH MD Departure Communication (Admissions) Time/Spoke to Admitting Phy: 21:40 Dr. Jauregui Impression Primary Impression: CVA (cerebral vascular accident) Qualified Codes: I63.9 - Cerebral infarction, unspecified Additional Impressions: Disequilibrium Polysubstance abuse Noncompliance Hypertension Qualified Codes: I10 - Essential (primary) hypertension Disposition: ADMITTED INPATIENT Condition: Improved Admissions Decision to Admit Reason: Admit from ER (General) Decision to Admit/Date: March 26, 2019 Time/Decision to Admit Time: 21:25 Departure-Patient Inst. Referrals: NO,LOCAL PHYSICIAN (PCP/Family) Primary Care Physician CELIA CARNEY MD March 26, 2019 19:13
[2019-03-26 19:19] LABS: BASOPHILS % (AUTO) 0 % (0-10); EOSINOPHILS # (AUTO) 0.2 10^3/uL (0.0-0.3); EOSINOPHILS % (AUTO) 2 % (0-10); HEMATOCRIT 46 % (40-54); HEMOGLOBIN 15.4 G/DL (13.3-17.7); LYMPHOCYTES # (AUTO) 3.5 X 10^3 (1.0-4.0); LYMPHOCYTES % (AUTO) 31 % (12-44); MEAN CORPUSCULAR HEMOGLOBIN 30 PG (25-34); MEAN CORPUSCULAR HGB CONC 34 G/DL (32-36); MEAN CORPUSCULAR VOLUME 88 FL (80-99); MEAN PLATELET VOLUME 9.5 FL (7.4-10.4); MONOCYTES # (AUTO) 0.9 X 10^3 (0.0-1.0); MONOCYTES % (AUTO) 8 % (0-12); NEUTROPHILS # (AUTO) 6.6 X 10^3 (1.8-7.8); NEUTROPHILS % (AUTO) 59 % (42-75); PLATELET COUNT 296 10^3/uL (130-400); RED CELL DISTRIBUTION WIDTH 14.2 % (10.0-14.5); WHITE BLOOD COUNT 11.2 10^3/uL (4.3-11.0)
[2019-03-26 19:38] LABS: ALANINE AMINOTRANSFERASE 17 U/L (0-55); ALBUMIN 4.3 GM/DL (3.2-4.5); ALKALINE PHOSPHATASE 87 U/L (40-136); BILIRUBIN,TOTAL 0.5 MG/DL (0.1-1.0); BUN/CREATININE RATIO 9; CALCIUM 10.4 MG/DL (8.5-10.1); CARBON DIOXIDE 26 MMOL/L (21-32); CHLORIDE 104 MMOL/L (98-107); GFR ESTIMATED > 60; GLUCOSE 95 MG/DL (70-105); MAGNESIUM 2.2 MG/DL (1.8-2.4); POTASSIUM 4.3 MMOL/L (3.6-5.0); SODIUM 138 MMOL/L (135-145); TOTAL PROTEIN 8.4 GM/DL (6.4-8.2)
--- NOTE | 2019-03-26 19:40 | NUR ---
die maker trim unable to obtain iv access. erp notified.
[2019-03-26 20:26] LABS: BILIRUBIN,URINE NEGATIVE (NEGATIVE); CLARITY,URINE CLEAR; COLOR,URINE AMBER; GLUCOSE, URINE (UA) NEGATIVE (NEGATIVE); KETONES,URINE NEGATIVE (NEGATIVE); LEUKOCYTE ESTERASE ,URINE 1+ (NEGATIVE); NITRITE,URINE NEGATIVE (NEGATIVE); PH,URINE 6 (5-9); PROTEIN,URINE 1+ (NEGATIVE); UROBILINOGEN,URINE NORMAL (NORMAL)
[2019-03-26 20:35] LABS: BACTERIA,URINE NEGATIVE /HPF; SQUAMOUS EPITHELIAL CELL,UR 0-2 /HPF; WBC,URINE 0-2 /HPF
[2019-03-26 20:40] LABS: AMPHETAMINE SCREEN, URINE POSITIVE (NEGATIVE); BARBITURATE SCREEN URINE NEGATIVE (NEGATIVE); BENZODIAZEPINES SCREEN URINE POSITIVE (NEGATIVE); CANNABINOID SCREEN, URINE POSITIVE (NEGATIVE); COCAINE SCREEN URINE NEGATIVE (NEGATIVE); METHADONE STAT NEGATIVE (NEGATIVE); METHAMPHETAMINE SCREEN URINE S NEGATIVE (NEGATIVE); OPIATE SCREEN URINE POSITIVE (NEGATIVE); OXYCODONE STAT NEGATIVE (NEGATIVE); PROPOXYPHENE STAT NEGATIVE (NEGATIVE); TRICYCLIC ANTIDEPRESSANTS SCRE NEGATIVE (NEGATIVE)
--- NOTE | 2019-03-26 21:06 | Diagnostic Imaging Report ---
PROCEDURE: CT head wo r/o stroke. TECHNIQUE: Multiple contiguous axial images were obtained through the brain without the use of intravenous contrast. Auto Exposure Controls were utilized during the CT exam to meet ALARA standards for radiation dose reduction. INDICATION: Headache, hearing loss and difficulty walking. Comparison is made with prior examination from 04/04/2008. FINDINGS: There is prominence of the ventricles and sulci. There is some chronic microvascular ischemic disease. There is some more focal encephalomalacia in the left frontal white matter. There is also ill-defined area of decreased attenuation in the right cerebellar hemisphere. There is no hydrocephalus. There is no midline shift. There is no intracranial mass, hemorrhage or extra-axial fluid collection. Calvarium is intact. Sinuses and mastoid air cells are clear. IMPRESSION: Atrophy and some chronic microvascular ischemic disease with more focal area of encephalomalacia in the left frontal white matter and right cerebellar hemisphere. The age of these insults are indeterminate. Possibility of acute CVA certainly cannot be excluded. Recommend clinical correlation and if warranted followup with MRI brain. No acute hemorrhage or other acute abnormality Report was called to [place] [facility] ER at 9:04 p.m., by ninfa (for NK). Dictated by: Dictated on workstation # [id number]
[2019-03-26] MEDS ORDERED: CLOPIDOGREL 75 MG (PLAVIX) TABLET PO ONE (22:00)
--- NOTE | 2019-03-26 22:05 | NUR ---
meal tray provided. pt denies needs at this time.
--- OUTSIDE RECORDS SUMMARY | 2019-03-26 22:11 | XMS REPORT | Continuity of Care Document ---
[...] Procedures Code [place] [address] DRUG SCREEN, SINGLE 04/30/2017 Results Test Result Range CREATININE BEDSIDE - 01/31/17 13:39 METHOD Bedside CREATININE 0.9 mg/dL 0.7-1.3 PDM - FENTANYL - 01/01/19 13:13 Prescribed Drug 1 Oxycodone NRG COMMENT NRG Prescribed Drug 2 Oxycodone NRG Fentanyl NEGATIVE ng/mL <0.5 medMATCH Fentanyl CONSISTENT NRG Norfentanyl NEGATIVE ng/mL <0.5 medMATCH Norfentanyl CONSISTENT NRG Radiology Report from [facility] on 06/23/2016 23:25:00 DIAGNOSTIC IMAGING REPORT [facility] - [address] [address] PHONE #: [phone] FAX #: [phone] Name: ARMOND ANTONIO Loc: [facility] Radiology No: : 1955 Age: 60 Sex: M Status: REG ER Unit No: [id number] Phys: Edinson Holm MD Acct: [id number] Reason For Exam: fall, pain, LEFT KNEE PAIN Exam Date: 06/23/2016 EXAMS: CPT CODE: [id number] KNEE LEFT 3 VIEWS 25950 PROCEDURE: - KNEE LEFT 3 VIEWS TIME [...] or dislocations of the left knee. at 9308 Reported and signed by: VEENA MERCHANT MD CC: Technologist: ASH PARSONS Transcribed Date/Time: 06/23/2016 (3935)Principal Accounts Clerk: CARLY Printed Date/Time: 06/23/2016 (6920) BATCH NO: N/A PAGE 1 Signed Report Radiology Report from [facility] on 06/24/2016 00:03:00 DIAGNOSTIC IMAGING REPORT [facility] - [address] [address] PHONE #: [phone] FAX #: [phone] Name: ARMOND ANTONIO Loc: [facility] Radiology No: : 1955 Age: 60 Sex: M Status: REG ER Unit No: [id number] Phys: Edinson Holm MD Acct: [id number] Reason For Exam: fall 10 stairs hit head Exam Date: 06/23/2016 EXAMS: CPT CODE: [id number] CT HEAD W/O CONTRAST 24403 TIME OF STUDY: 06/23/2016 11:06 PM REASON [...] 1 Signed Report (CONTINUED) DIAGNOSTIC IMAGING REPORT [facility] - [address] [place] [address] PHONE #: [phone] FAX #: [phone] Name: ARMOND ANTONIO Loc: [facility] Radiology No: : 1955 Age: 60 Sex: M Status: [facility] Unit No: [id number] Phys: YESSI Edinson [place] MD Acct: [id number] Reason For Exam: fall 10 stairs hit head Exam Date: 06/23/2016 EXAMS: CPT CODE: [id number] CT HEAD W/O CONTRAST 64169 <Continued> at 8448 RESIDENT: SHAYY BRADLEY DO Reported and signed by: VEENA MERCHANT MD CC: Technologist: МАРИНА GONZALES Transcribed Date/Time: 06/23/2016 (9974)Principal Accounts Clerk: CARLY Printed Date/Time: 06/24/2016 (0003) BATCH NO: N/A PAGE 2 Signed Report Radiology Report from [facility] on 06/24/2016 00:06:00 DIAGNOSTIC IMAGING REPORT [facility] - [address] [address] PHONE #: [phone] FAX #: [phone] Name: ARMOND ANTONIO Loc: [facility] Radiology No: : 1955 Age: 60 Sex: M Status: REG ER Unit No: [id number] Phys: Edinson Holm MD Acct: [id number] Reason For Exam: fall 10 stairs, tender to palp Exam Date: 06/23/2016 EXAMS: CPT CODE: [id number] CT THORACIC SPINE W/O 11899 TIME OF EXAM: 06/23/2016 11:06 PM REASON [...] 1 Signed Report (CONTINUED) DIAGNOSTIC IMAGING REPORT [facility] - [address] [place] [address] PHONE #: [phone] FAX #: [phone] Name: ARMOND ANTONIO Loc: [facility] Radiology No: : 1955 Age: 60 Sex: M Status: REG ER Unit No: [id number] Phys: Edinson Holm MD Acct: [id number] Reason For Exam: jacquie for Exam: fall 10 stairs, Exam Date: 06/23/2016 --------- EXAMS: CPT CODE: [id number] CT THORACIC SPINE W/O 95848 <Continued> resident physician's interpretation. at 0001 RESIDENT: SHAYY BRADLEY DO Reported and signed by: VEENA MERCHANT MD CC: Technologist: МАРИНА GONZALES Transcribed Date/Time: 06/24/2016 (0001)Principal Accounts Clerk: CARLY Printed Date/Time: 06/24/2016 (0006) BATCH NO: N/A PAGE 2 Signed Report Radiology Report from [facility] on 01/22/2017 08:59:00 DIAGNOSTIC IMAGING REPORT [facility] - [address] [place] [address] PHONE #: [phone] FAX #: [phone] Name: ARMOND ANTONIO Loc: [facility] Radiology No: : 1955 Age: 61 Sex: M Status: REG CLI Unit No: [id number] Phys: Mary Perez DO Acct: [id number] Reason For Exam: HEP C B AND A ELEVATED TUMOR MA Exam Date: 01/22/2017 EXAMS: CPT CODE: [id number] [place] [address] REASON FOR EXAM: HEP C B AND [...] 1 Signed Report (CONTINUED) DIAGNOSTIC IMAGING REPORT [facility] - [address] [place] [address] PHONE #: [phone] FAX #: [phone] Name: PACOARMOND ALATORRE SANDRA Loc: [facility] Radiology No: : 1955 Age: 61 Sex: M Status: REG CLI Unit No: [id number] Phys: Mary Perez DO Acct: [id number] Reason For Exam: jacquie for Exam: HEP C B AND A EL Exam Date: 01/22/2017 EXAMS: CPT CODE: [id number] [place] [address] <Continued> 3. Hepatic steatosis. I have personally reviewed these images and corrected the resident physician's interpretation if necessary. at 0854 RESIDENT: EAMON RAGLAND MD Reported and signed by: EARL OBRIEN MD CC: Mary Wilks DO Technologist: JIMBO BENNETT Transcribed Date/Time: 01/22/2017 (0854)Principal Accounts Clerk: ERIKA Printed Date/Time: 01/22/2017 (0859) BATCH NO: N/A PAGE 2 Signed Report Radiology Report from [facility] on 01/31/2017 14:29:00 DIAGNOSTIC IMAGING REPORT [facility] - [address] [address] PHONE #: [phone] FAX #: [phone] Name: PACOARMOND ALATORRE ASNDRA Loc: [facility] Radiology No: : 1955 Age: 61 Sex: M Status: REG CLI Unit No: [id number] Phys: Rosita Sanchez MD Acct: [id number] Reason For Exam: HEP C Exam Date: 01/31/2017 EXAMS: CPT CODE: [id number] CT ABDOMEN W W/O CONTRAST 31972 INDICATION: Hepatitis C. History of hypertension, smoking. [...] unremarkable. The urinary bladder is below the wdndv-po-vzea. The small bowel is nondilated. A few [...] 1 Signed Report (CONTINUED) DIAGNOSTIC IMAGING REPORT [facility] - [address] [place] [address] PHONE #: [phone] FAX #: [phone] Name: ARMOND ANTONIO Loc: [facility] Radiology No: : 1955 Age: 61 Sex: M Status: REG I Unit No: [id number] Phys: Rosita Sanchez MD Acct: [id number] Reason For Exam: jacquie for Exam: HEP C Exam Date: 01/31/2017 EXAMS: CPT CODE: [id number] CT ABDOMEN W W/O CONTRAST 07821 <Continued> probably represents an area of focal [...] Rosita Burroughs MD; Mary Wilks DO Technologist: ANDEEN PERRY Transcribed Date/Time: 01/31/2017 (9657)Principal Accounts Clerk: [email or web address] Printed Date/Time: 01/31/2017 (9144) BATCH NO: N/A PAGE 2 Signed Report Encounters ACCT No. Visit Date/Time Discharge Status Pt. Type Provider Facility Loc./Unit Complaint [id number] 08/30/2017 09:12:00 08/30/2017 23:59:59 CLS Outpatient MELISSA PETTIT [id number] 01/01/2019 12:40:00 01/01/2019 23:59:59 CLS Outpatient CASI KNOWLES, KEL Perdomo [facility] [id number] 01/01/2019 12:40:00 Document Registration [id number] 03/28/2017 16:54:00 03/28/2017 19:42:00 DIS Emergency Christi KNOWLES, Vicky [facility] [id number] 01/31/2017 12:59:00 01/31/2017 12:59:00 DIS Outpatient aMnjeet KNOWLES, Rosita Roca [facility] [id number] 01/22/2017 07:45:00 01/22/2017 07:45:00 DIS Outpatient Mary Wilks DO [facility] W.[facility]ALPH [id number] 01/11/2017 17:53:00 01/11/2017 19:40:00 [id number]2017 10:15:00 01/05/2017 23:59:59 CLS Outpatient Maria R KNOWLES, Hugo Sanderson [facility] W.RAD [id number] 06/23/2016 21:58:00 06/24/2016 00:38:00 DIS Emergency Anabel KNOWLES, Edinson Chavez [facility].VICK [id number] 05/10/2016 11:46:00 05/10/2016 12:36:00 DIS Emergency Jr KNOWLES, Pascual Godinez [facility]
[2019-03-26 23:00] VITALS: BP 161/101
[2019-03-26] MEDS ORDERED: CATHETER FLUSH 10 ML SYR IV PRN (23:45)
[2019-03-26] MEDS ORDERED: cloNIDine 0.1 MG (CATAPRES) TAB PO PRN (23:45)
[2019-03-26] MEDS ORDERED: ONDANSETRON 4 MG/2 ML (SDV) Z0FRAN IV PRN (23:45)
[2019-03-26] MEDS ORDERED: HYDROcodone/APAP 5 MG/325 MG (LORTAB) TAB PO PRN (23:45)
[2019-03-27] VITALS (8 sets, daily range): BP systolic 129–161; BP diastolic 66–107
[2019-03-27 04:00] LABS: HEMOGLOBIN 15.8 G/DL (13.3-17.7); RED CELL DISTRIBUTION WIDTH 14.1 % (10.0-14.5)
[2019-03-27 04:23] LABS: ALANINE AMINOTRANSFERASE 17 U/L (0-55); ALKALINE PHOSPHATASE 101 U/L (40-136); BILIRUBIN,TOTAL 0.4 MG/DL (0.1-1.0); BUN/CREATININE RATIO 11; CALCIUM 9.8 MG/DL (8.5-10.1); CARBON DIOXIDE 21 MMOL/L (21-32); CHLORIDE 106 MMOL/L (98-107); CREATININE SERUM 0.94 MG/DL (0.60-1.30); GFR ESTIMATED > 60; GLUCOSE 90 MG/DL (70-105); POTASSIUM 4.2 MMOL/L (3.6-5.0); SODIUM 137 MMOL/L (135-145)
[2019-03-27] MEDS ORDERED: RT-ALBUTEROL/IPRATROPIUM 3 ML (DUONEB) VIAL INH PRN (05:00)
[2019-03-27] MEDS: CATHETER FLUSH 10 ML SYR IV SCH ×3 (06:44→21:44)
[2019-03-27] MEDS ORDERED: FLUT1BLS8 INH (08:26)
[2019-03-27] MEDS ORDERED: CLOP75TA28 PO (08:26)
[2019-03-27] MEDS ORDERED: LISI40TA PO (08:26)
[2019-03-27] MEDS ORDERED: ALLO300T2 PO (08:26)
[2019-03-27] MEDS: RT-ALBUTEROL/IPRATROPIUM 3 ML (DUONEB) VIAL INH SCH ×2 (08:26→18:54)
[2019-03-27] MEDS ORDERED: ASPI-983 PO (08:46)
--- NOTE | 2019-03-27 08:46 | NUR ---
SPOKE WITH THE PATIENT ABOUT HIS MEDICATIONS. HE LISTED WHAT HE IS SUPPOSED TO BE TAKING AND I VERIFIED IT WITH THE EXT MED HX. HE IS PAST DUE FOR REFILL ON HIS PLAVIX AND WIXELA. HE ADMITS HE HAS BEEN OUT OF THESE FOR AWHILE AND STATES HE DIDN'T GET THEM REFILLED BECAUSE HE JUST WASN'T THAT INTO THEM AND DIDN'T REALIZE THE IMPORTANCE. I NOTED THE PAST DUE FILL DATE ON THE MED REC. HE TAKES ASPIRIN 81MG DAILY OTC.
[2019-03-27] MEDS: lisINopril 40 MG (PRINIVIL) TABLET PO SCH (08:52)
[2019-03-27] MEDS: ATORVASTATIN 80 MG (LIPITOR) TABLET PO SCH (08:52)
[2019-03-27] MEDS ORDERED: CLOPIDOGREL 75 MG (PLAVIX) TABLET PO SCH (09:00)
--- NOTE | 2019-03-27 09:40 | Physical Therapy Evaluation ---
PT Evaluation-General Medical Diagnosis Admission Date March 26, 2019 at 21:40 Medical Diagnosis: CVA Onset Date: March 26, 2019 Therapy Diagnosis Therapy Diagnosis: impaired mobility, dizziness Height/Weight Height (Feet): 5 Height (Inches): 7.00 Weight (Pounds): 210 Weight (Ounces): 0.0 Precautions Precautions/Isolations: Standard Precautions Referral Physician: Phuong Jauregui DO Reason for Referral: Evaluation/Treatment Medical History Additional Medical History Past Medical History Surgeries: Yes (chest for osteomyelitis) Vascular Surgery (peripheral vascular stenting) Respiratory: Yes COPD Cardiac: Yes Hypertension, Peripheral Vascular Neurological: No Genitourinary: No Gastrointestinal: No Musculoskeletal: Yes Arthritis, Chronic Back Pain (resulting in disability), Gout Endocrine: No HEENT: No Cancer: No Psychosocial: Yes (polysubstance abuse) Blood Disorders: No Adverse Reaction/Blood Tranf: No Reviewed History: Yes Social History Home: Single Level Current Living Status: Children Entry Into Home: Stairs With Railing PT Steps Into Home: 6 Patient states that he lives in something like a basement apartment. Prior/Core FIM Prior Level of Function Therapy Code Descriptions/Definitions Functional [place] Measure: 0=Not Assessed/NA 4=Minimal Assistance 1=Total Assistance 5=Supervision or Setup 2=Maximal Assistance 6=Modified [place] 3=Moderate Assistance 7=Complete [place] Therapy Quality Codes: 6 Independent with activity with or without an assistive device 5 Patient requires set up or clean up by helper. Patient completes activity by themselves 4 Supervision or touching assist (CGA). [place] provide cues , steadying assist 3 The helper provides less than half the effort to complete the activity 2 The helper provides more than half the effort to complete the activity 1 Dependent. The helper does all the effort to complete an activity 7 Patient refused to complete or attempt activity 9 The patient did not perform the activity before the current illness or injury 88 Not attempted due to Medical conditions or safety concerns Functional Abilities and Goals: Independent: Patient completed the activities by him/herself, with or without an assistive device, with no assistance from a helper. Needed Some Help: Patient needed partial assistance from another person to complete activities. Dependent: A helper completed the activities for the patient. Unknown: Not Applicable: Bed Mobility: 7 Transfers (B,C,W/C) (FIM): 7 Gait: 7 Stairs: 7 Indoor Mobility (Ambulation): Independent Stairs: Independent PT Evaluation-Current Subjective Patient in bed pre tx, agrees to PT, has 8/10 low back pain. Pt/Family Goals to be independent at home Objective Patient Orientation: Person, Place, Situation ROM/Strength ROM Lower Extremities WNL Strength Lower Extremities right lower extremity (hip flexion 3+/5, knee flexion 5/5, knee extension 5/5, dorsiflexion 5/5), left lower extremity (hip flexion 3-/5, knee flexion 4/5, knee extension 4/5, dorsiflexion 4+/5) Neuromuscular (Tone, Coordination, Reflexes) Patient has good tracking and peripheral vision. He has decreased hearing on the right side. Sensory Vision: Functional Hearing: Impaired Sensation Right Lower Extremit: Intact Sensation Left Lower Extremity: Intact Transfers Therapy Code Descriptions/Definitions Functional [place] Measure: 0=Not Assessed/NA 4=Minimal Assistance 1=Total Assistance 5=Supervision or Setup 2=Maximal Assistance 6=Modified [place] 3=Moderate Assistance 7=Complete [place] Transfers (B, C, W/C) (FIM): 5 Scootin Rollin Supine to/from Sit: 5 Sit to/from Stand: 5 Gait Mode of Locomotion: Walk Anticipated Mode of Locomotion: Walk Gait (FIM): 2 Distance: 50' Gait Level of Assist: 4 Gait Persons Needed: 1 Gait Assistive Device: None Comments/Gait Description CGA, patient has limp due to arthritis in left knee, he does get dizzy during ambulation and has to turn back around. Patient wants to get back into bed because he woke up early. Balance Sitting Static: Normal Sitting Dynamic: Normal Standing Static: Fair Standing Dynamic: Fair Treatment BLE exercises x15 (HS, AP) Assessment/Needs Patient has impaired mobility, strength, endurance, dizziness. He states that he has been ambulating to the bathroom by himself. He seems to be ok to ambulate short distances by himself but needs to sit as soon as dizziness starts to decrease risk of falling. Rehab Potential: Fair PT Short Term Goals Short Term Goals Time Frame: Apr 03, 2019 Transfers (B,C,W/C) (FIM): 7 Gait (FIM): 5 Gait Distance Comment: 150' Gait Level of Assist: 5 Gait Assistive Device: None PT Plan Problem List Problem List: Activity Tolerance, Functional Strength, Safety, Balance, Gait, Transfer Treatment/Plan Treatment Plan: Continue Plan of Care Treatment Plan: Education, Functional Activity Trish, Functional Strength, Gai t, Safety, Therapeutic Exercise, Transfers Treatment Duration: Apr 03, 2019 Frequency: 6 times per week Estimated Hrs Per Day: .25 hour per day (15-30') Patient and/or Family Agrees t: Yes Safety Risks/Education Patient Education: Gait Training, Transfer Techniques, Correct Positioning, Safety Issues Teaching Recipient: Patient Teaching Methods: Demonstration, Discussion Response to Teaching: Reinforcement Needed Discharge Recommendations Plan Patient will perform bed mobility and transfer training, balance and endurance training, functional strengthening, stair training, gait training, and education, to improve functional mobility and independence at home. Therapy D/C Recommendations: Home w/ Family Support, Physical Therapy Outpatient Time/GCodes Time In: 917 Time Out: 928 Total Billed Treatment Time: 11 Total Billed Treatment 1 visit KAYLAH 11' ROSE GERARD PT March 27, 2019 09:40
--- NOTE | 2019-03-27 09:53 | History & Physical-Hospitalist ---
History of Present Illness HPI/Chief Complaint CC: Stroke HPI: This is a 64yo male just moved from [place] in August had yet to establish with a doctor who ran out of his Plavix and Amlodipine two days ago who presented to the ER 48 hours after severe disequilibrium consistent with stroke on CT scan on workup. Neurology service was contacted at [facility] recommended admission for completion of workup but he was not a TPA candidate. He does have a hx of poly substance abuse and he was positive on drug screen with marijuana, methamphetamine, benzodiazepines, and oxycodone. He is currently on disability for chronic back pain. He does currently smoke. We will evaluate with MRI the brain. Have PT and OT evaluate in addition to rehab a nd check lipid profile. Source: patient Exam Limitations: no limitations Date Seen 03/27/19 Time Seen by a Provider: 09:15 Attending Physician Phuong Jauregui DO PCP No,Local Physician Referring Physician Date of Admission March 26, 2019 at 21:40 Home Medications & Allergies Home Medications Reviewed patient Home Medication Reconciliation performed by pharmacy medication reconciliations x ray technician and/or nursing. Patients Allergies have been reviewed. Allergies Allergies Coded Allergies No Known Drug Allergies (Unverified03/26/19) Past Oaffccr-Ifjwtc-Drxpob Hx Past Med/Social Hx: Reviewed Nursing Past Med/Soc Hx, Reviewed and Corrections made Patient Social History Marrital Status: single Employed/Student: unemployed Alcohol Use: Occasionally Uses Recreational Drug Use: Yes Drug of Choice: marijuana, methamphetamines Smoking Status: Current Everyday Smoker Type Used: Cigarettes 2nd Hand Smoke Exposure: Yes Recent Foreign Travel: No Contact w/other who traveled: No Recent Hopitalizations: No Recent Infectious Disease Expo: No Seasonal Allergies Seasonal Allergies: No Past Medical History Surgeries: Vascular Surgery (peripheral vascular stenting) Cardiac: High Cholesterol, Hypertension, Peripheral Vascular Musculoskeletal: Arthritis, Chronic Back Pain (resulting in disability), Gout History of Blood Disorders: No Adverse Reaction to Blood Powell: No Review of Systems Constitutional: see HPI, dizziness EENTM: no symptoms reported Respiratory: no symptoms reported Cardiovascular: no symptoms reported Gastrointestinal: no symptoms reported Genitourinary: no symptoms reported Musculoskeletal: back pain Skin: no symptoms reported Psychiatric/Neurological: No Symptoms Reported All Other Systems Reviewed Negative Unless Noted: Yes Physical Exam Physical Exam Vital Signs Vital Signs - First Documented 03/26/19 03/27/19 17:00 04:49 Temp 96.8 Pulse 81 Resp 16 B/P (MAP) 150/99 (116) Pulse Ox 94 O2 Delivery Room Air FiO2 21 Capillary Refill : Less Than 3 Seconds Height, Weight, BMI Height: 5'7.00" Weight: 210lbs. 0.0oz. 95.732157zb; 32.9 BMI Method:Stated General Appearance: No Apparent Distress, WD/WN, Chronically ill Eyes: Right Eye Normal Inspection, Right Eye PERRL HEENT: PERRL/EOMI, Normal ENT Inspection, Pharynx Normal, Moist Mucous Membranes Neck: Full Range of Motion, Normal Inspection, Non Tender Respiratory: Chest Non Tender, Lungs Clear, Normal Breath Sounds, No Accessory Muscle Use, No Respiratory Distress Cardiovascular: Regular Rate, Rhythm, No Edema, No Gallop, No JVD, No Murmur, Normal Peripheral Pulses Gastrointestinal: Normal Bowel Sounds, No Organomegaly, No Pulsatile Mass, Non Tender, Soft Back: Normal Inspection, No CVA Tenderness, No Vertebral Tenderness Extremity: Normal Capillary Refill, Normal Inspection, Normal Range of Motion, Non Tender, No Calf Tenderness, No Pedal Edema Neurologic/Psychiatric: Alert, Oriented x3, No Motor/Sensory Deficits, Normal Mood/Affect, Abnormal Gait, Other (can't stand without falling) Skin: Normal Color, Warm/Dry Lymphatic: No Adenopathy Results Results/Procedures Labs Laboratory Tests 03/26/19 19:10 03/27/19 03:20 Patient resulted labs reviewed. Assessment/Plan Admission Diagnosis Assessment: s/p CVA 48 hours before presenting to ER MRI confirmed right cerebellar infarct Ataxia/disequilibrium severe HTN HLP Smoker Meth use Polysubstance abuse Non-compliance Plan: Monitor BP IRF PT/OT Carotid USG ECHO Drug abuse cessation Admission Status: Inpatient Order (span 2 midnights) Reason for Inpatient Admission: Subacute CVA Diagnosis/Problems Diagnosis/Problems (1) CVA (cerebral vascular accident) Status: Acute Qualifiers: CVA mechanism: unspecified Qualified Codes: I63.9 - Cerebral infarction, unspecified (2) Cerebellar stroke Status: Acute (3) Disequilibrium Status: Acute (4) Ataxia Status: Acute (5) Smoker Status: Chronic (6) Methamphetamine abuse Status: Chronic (7) Hypertension Status: Chronic Qualifiers: Hypertension type: essential hypertension Qualified Codes: I10 - Essential (primary) hypertension (8) Polysubstance abuse Status: Chronic (9) Noncompliance Status: Chronic Clinical Quality Measures DVT/VTE Risk/Contraindication: Risk Factor Score Per Nursin RFS Level Per Nursing on Admit: 4+=Very High PHUONG JAUREGUI DO March 27, 2019 09:53
--- NOTE | 2019-03-27 09:54 | Diagnostic Imaging Report ---
PROCEDURE: US carotid duplex, bilateral. TECHNIQUE: Multiple real-time grayscale images were obtained over the carotid arteries in various projections, bilaterally. Additional spectral analysis and color Doppler duplex images were also obtained. INDICATION: CVA. There is mild plaquing identified at the carotid bifurcations bilaterally. Velocities in the common and internal carotid arteries are normal bilaterally. No velocity elevation or stenosis is seen. Both vertebral arteries demonstrate antegrade flow. Parameters based on the consensus panel Castellanos-Scale and Doppler ultrasound criteria published August 2003, Radiology, Volume 229. DOPPLER (peak systolic velocity M/S Right Left CCA 1.1 1.0 ICA Proximal .74 .53 ICA Mid .92 .73 ICA Distal .77 .78 RATIO .83 .75 ECA 1.0 1.1 VERT .58 .41 IMPRESSION: Mild bilateral carotid plaque. There is no evidence of a hemodynamically significant stenosis. Dictated by: Dictated on workstation # [id number]
[2019-03-27 10:23] LABS: CHOLESTEROL 194 MG/DL (< 200); HDL CHOLESTEROL 32 MG/DL (40-60); TRIGLYCERIDES 232 MG/DL (<150); VLDL CHOLESTEROL 46 MG/DL (5-40)
[2019-03-27] MEDS ORDERED: amLODIPine 5 MG (NORVASC) TAB PO ONE (11:15)
--- NOTE | 2019-03-27 11:25 | NUR ---
Patient off floor at this time to MRI.
--- NOTE | 2019-03-27 12:00 | NUR ---
Patient back from MRI, patient resting in bed with family at bedside.
--- NOTE | 2019-03-27 13:03 | Diagnostic Imaging Report ---
PROCEDURE: MR imaging of the brain without contrast. TECHNIQUE: Multiplanar, multisequence MR imaging of the brain was performed without contrast. INDICATION: Right-sided weakness. COMPARISON: Correlation is made with CT head from one day earlier. FINDINGS: There are several areas of diffusion restriction in the right cerebellar hemisphere as well as a tiny punctate region of restriction in the pontomedullary junction posteriorly. The cerebral hemispheres are unremarkable. There are numerous periventricular and subcortical white matter signal abnormalities noted consistent with chronic microvascular ischemia. No mass effect or midline shift is seen. No acute intra-axial or extra-axial hemorrhage is detected. Corpus callosum is unremarkable. Sella and parasellar structures are unremarkable. The normal expected flow-voids within the carotid siphons are seen. IMPRESSION: Moderate sized region of diffusion restriction involving the right cerebellar hemisphere consistent with acute/subacute ischemia. There is also a punctate area of diffusion restriction near the pontomedullary junction posteriorly. No supratentorial diffusion restriction is seen. No hemorrhage is detected. Results were discussed with Dr. Jauregui prior to this dictation. Dictated by: Dictated on workstation # [id number]
--- NOTE | 2019-03-27 15:42 | Occupational Therapy Eval ---
OT Evaluation-General/PLF Medical Diagnosis Admission Date March 26, 2019 at 21:40 Medical Diagnosis: CVA Onset Date: March 26, 2019 Therapy Diagnosis Therapy Diagnosis: impaired ADLs and mobility Height/Weight Height (Feet): 5 Height (Inches): 7.00 Weight (Pounds): 210 Weight (Ounces): 0.0 Precautions Precautions/Isolations: Standard Precautions Safety Interventions: None Weight Bear Status Weight Bearing Restriction: Weight Bearing/Tolerated Referral Physician: Phuong Jauregui DO Referral Reason: Activity Tolerance, Self Care, Evaluation/Treatment, Strengthening/ROM Medical History Additional Medical History Surgeries: Vascular Surgery (peripheral vascular stenting) Cardiac: Hypertension, Peripheral Vascular Musculoskeletal: Arthritis, Chronic Back Pain (resulting in disability), Gout History of Blood Disorders: No Adverse Reaction to Blood Powell: No Current History per h&P: "This 63-year-old gentleman presents to the emergency room with complaints of disequilibrium, dizziness, decreased hearing in the right ear, and right-sided weakness since March 24. He has some difficulty with ambulation because of this. He feels like he tilts to the right. He takes lisinopril/HCTZ and amlodipine for hypertension. He has been out of the amlodipine for about 4- 5 days. Oropharynx appears dry. On assessment no weaknesses appreciated on the right side but he does have balance difficulty both with standing and walking. Patient states his dizziness feels both like a spinning or vertigo as well as a lightheadedness. This is worse in the sitting and standing position and better with lying flat. He does not have significant exacerbation with head movement. Patient occasionally drinks alcohol and had his last alcoholic drink about a week ago. He last used methamphetamines over the weekend. He also admits to smoking tobacco and marijuana. He does not have a local primary care provider as he has recently moved back to the area. He did see Dr. Gamino in the remote past. He is afebrile. He complains of gout in the left knee. Disequilibrium is the only neurologic deficit observed during assessment and exam. Stroke activation was not paged as these symptoms are 48 hours old. Patient is also not a TPA candidate due to 48 hours from time of onset. He recently moved here from the [facility]. He is noncompliant with his amlodipine and Plavix because he has not established with a local provider yet. He is on SSI disability for back pain." Reviewed History: Yes Social History Home: Single Level Current Living Status: Children Entry Into Home: Stairs With Railing Steps Into Home: 6 ADL-Prior Level of Function Therapy Code Descriptions/Definitions Functional [place] Measure: 0=Not Assessed/NA 4=Minimal Assistance 1=Total Assistance 5=Supervision or Setup 2=Maximal Assistance 6=Modified [place] 3=Moderate Assistance 7=Complete [place] Therapy Quality Codes: 6 Independent with activity with or without an assistive device 5 Patient requires set up or clean up by helper. Patient completes activity by themselves 4 Supervision or touching assist (CGA). [place] provide cues , steadying assist 3 The helper provides less than half the effort to complete the activity 2 The helper provides more than half the effort to complete the activity 1 Dependent. The helper does all the effort to complete an activity 7 Patient refused to complete or attempt activity 9 The patient did not perform the activity before the current illness or injury 88 Not attempted due to Medical conditions or safety concerns Functional Abilities and Goals: Independent: Patient completed the activities by him/herself, with or without an assistive device, with no assistance from a helper. Needed Some Help: Patient needed partial assistance from another person to complete activities. Dependent: A helper completed the activities for the patient. Unknown: Not Applicable: Self Care: Independent Functional Cognition: Independent DME/Equipment: Tub/Shower Occupation: retired Drive Self: No OT Current Status Subjective pt laying in bed upon OT Arrival in no apparent. pt agreed to OT evaluation session. pt complains of 8/10 back pain. pt stated he has chronic back pain. NSG aware Mental Status/Objective Patient Orientation: Person, Place, Time, Situation, Normal For Age Current Glasses/Contacts: Yes Hearing Aids: No Dentures/Partials: No Hand Dominance: Right Upper Extremity ROM WFL Upper Extremity Coordination WFL ADL-Treatment Therapy Code Descriptions/Definitions Functional [place] Measure: 0=Not Assessed/NA 4=Minimal Assistance 1=Total Assistance 5=Supervision or Setup 2=Maximal Assistance 6=Modified [place] 3=Moderate Assistance 7=Complete [place] Therapy Quality Codes: 6 Independent with activity with or without an assistive device 5 Patient requires set up or clean up by helper. Patient completes activity by themselves 4 Supervision or touching assist (CGA). [place] provide cues , steadying assist 3 The helper provides less than half the effort to complete the activity 2 The helper provides more than half the effort to complete the activity 1 Dependent. The helper does all the effort to complete an activity 7 Patient refused to complete or attempt activity 9 The patient did not perform the activity before the current illness or injury 88 Not attempted due to Medical conditions or safety concerns pt demo ability to perform bed mobility with SBA for safety, LB dressing with CGA. noted 1 LOB while doffing Sylvester socks toward left side while sitting EOB. pt perform functional mobility 10ft with CGA, and toileting with CGA for safety/ balance while standing. Education OT Patient Education: Progress toward Goal/Update tx plan, Purpose of tx/functional activities, Safety issues Teaching Recipient: Patient Teaching Methods: Demonstration, Discussion Response to Teaching: Verbalize Understanding, Return Demonstration OT Short Term Goals Short Term Goals Grooming(FIM): 5 Lower Body Dressing(FIM): 5 Transfers (B,C,W/C) (FIM): 7 1=Demonstrate adherence to instructed precautions during ADL tasks. 2=Patient will verbalize/demonstrate understanding of assistive devices/modifications for ADL. 3=Patient will improve strength/tolerance for activity to enable patient to perform ADL's. 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 2=Patient will verbalize/demonstrate understanding of assistive devices/modifications for ADL. 3=Patient will improve strength/tolerance for activity to enable patient to perform ADL's. OT Education/Plan Problem List/Assessment Assessment: Decreased Activ Tolerance, Decreased Safety Aware, Impaired Funct Balance, Impaired I ADL's pt presents with impaired ADLS and mobility affecting areas of ADLS and mobility. pt would benefit from OT services to increase independence with ADLs/ mobility. Discharge Recommendations Plan/Recommendations: Continue POC Treatment Plan/Plan of Care Treatment,Training & Education: Yes Patient would benefit from OT for education, treatment and training to promote independence in ADL's, mobility, safety and/or upper extremity function for ADL's. Plan of Care: ADL Retraining, Functional Mobility, Group Exercise/Act as Ind, UE Funct Exercise/Act, UE Neuromus Re-Ed/Coord Treatment Duration: Apr 10, 2019 Frequency: 5 times per week Estimated Hrs Per Day: .25 hour per day Agreement: Yes Rehab Potential: Fair Time/GCodes Start Time: 13:15 Stop Time: 13:30 Billed Treatment Time EVM 15 minutes MANJU OTERO OT March 27, 2019 15:42
[2019-03-27] MEDS ORDERED: lisINopril 40 MG (PRINIVIL) TABLET PO SCH (21:00)
[2019-03-27] MEDS ORDERED: SALMETEROL P INH SCH (21:00)
[2019-03-27] MEDS ORDERED: ASPIRIN E.C. 81 MG (ECOTRIN) TAB PO SCH (21:00)
[2019-03-27] MEDS ORDERED: [UNRECOGNIZED DRUG - OTHER] INH SCH (21:00)
[2019-03-27] MEDS ORDERED: FLUTICASONE PROPION INH SCH (21:00)
[2019-03-28 00:13] VITALS: BP 134/75
[2019-03-28 04:00] VITALS: BP 146/92
[2019-03-28] MEDS: CATHETER FLUSH 10 ML SYR IV SCH (05:10)
[2019-03-28] MEDS: RT-ALBUTEROL/IPRATROPIUM 3 ML (DUONEB) VIAL INH SCH (07:36)
[2019-03-28 08:00] VITALS: BP 135/83
[2019-03-28] MEDS: ATORVASTATIN 80 MG (LIPITOR) TABLET PO SCH (08:42)
[2019-03-28] MEDS: lisINopril 40 MG (PRINIVIL) TABLET PO SCH (08:43)
[2019-03-28] MEDS ORDERED: CLOPIDOGREL 75 MG (PLAVIX) TABLET PO SCH (09:00)
[2019-03-28] MEDS ORDERED: amLODIPine 5 MG (NORVASC) TAB PO SCH (09:00)
[2019-03-28] MEDS ORDERED: RT-ADVAIR HFA 45/21 MCG PER PUFF IH SCH (10:01)
[2019-03-28] MEDS ORDERED: AMLO5TAB9 PO (10:34)
[2019-03-28] MEDS ORDERED: FLUT1BLS8 INH (10:34)
[2019-03-28] MEDS ORDERED: ALLO300T2 PO (10:34)
[2019-03-28] MEDS ORDERED: ATOR80TA76 PO (10:34)
[2019-03-28] MEDS ORDERED: ASPI-983 PO (10:34)
[2019-03-28] MEDS ORDERED: LISI40TA PO (10:34)
[2019-03-28] MEDS ORDERED: CLOP75TA28 PO (10:34)
--- NOTE | 2019-03-28 10:35 | Discharge Summary-Hospitalist ---
Diagnosis/Chief Complaint Date of Admission March 26, 2019 at 21:40 Date of Discharge Discharge Date: March 28, 2019 Admission Diagnosis Assessment: s/p CVA 48 hours before presenting to ER MRI confirmed right cerebellar infarct Ataxia/disequilibrium severe HTN HLP Smoker Meth use Polysubstance abuse Non-compliance Plan: Monitor BP IRF PT/OT Carotid USG ECHO Drug abuse cessation Discharge Diagnosis (1) CVA (cerebral vascular accident) Status: Acute (2) Cerebellar stroke Status: Acute (3) Disequilibrium Status: Acute (4) Ataxia Status: Acute (5) Smoker Status: Chronic (6) Methamphetamine abuse Status: Chronic (7) Hypertension Status: Chronic (8) Polysubstance abuse Status: Chronic (9) Noncompliance Status: Chronic Discharge Summary Discharge Physical Exam Allergies: Coded Allergies: No Known Drug Allergies (Unverified , 03/26/19) Vitals & I&Os Vital Signs Date Time Temp Pulse Resp B/P (MAP) Pulse Ox O2 Delivery O2 Flow Rate FiO2 03/28/19 08:00 99 Room Air 03/28/19 08:00 97.8 89 18 135/83 (100) 03/27/19 04:49 21 General Appearance: No Apparent Distress, WD/WN, Chronically ill Respiratory: Chest Non Tender, Lungs Clear, Normal Breath Sounds, No Accessory Muscle Use, No Respiratory Distress Cardiovascular: Regular Rate, Rhythm, No Edema, No Gallop, No JVD, No Murmur, Normal Peripheral Pulses Neurologic/Psychiatric: Alert, Oriented x3, No Motor/Sensory Deficits, Normal Mood/Affect, Other (balance deficit much improved) Hospital Course Was the Problem List Reviewed?: Yes Hospital course: patient had an uneventful hospital course after he was admitted due to suspicion for CVA. BP was managed with meds. Carotid USG was normal. ECHO was normal. UDS + for multiple illicit drugs including meth. MRI confirmed right cerebellar infarct subacute. PT/OT evaluated the patient and he improved dramatically overnight and was able to be DC and has his own walker at home he can use and outpatient PT will be ordered at [place]. Statin along with ASA and Plavix will be Rx at [place]. Labs (last 24 hrs) Patient resulted labs reviewed. Discussion & Recommendations Discharge Planning: <30 minutes discharge planning Discharge Home Medications: Active Scripts Active Amlodipine Besylate 5 Mg Tablet 5 Mg PO DAILY Atorvastatin Calcium 80 Mg Tablet 80 Mg PO DAILY Aspirin EC (Aspirin) 81 Mg Tablet.dr [place] Mg PO HS Wixela 100-50 Inhub (Fluticasone Propion/Salmeterol) 1 Each Blst.w.dev 1 Puff INH BID LAST FILLED 30 DAY SUPPLY 01-01-19 Clopidogrel (Clopidogrel Bisulfate) 75 Mg Tablet 75 Mg PO DAILY LAST FILLED #30 01-01-19 Allopurinol 300 Mg Tablet 300 Mg PO HS Lisinopril 40 Mg Tablet 40 Mg PO HS Instructions to patient/family Please see electronic discharge instructions given to patient. Clinical Quality Measures DVT/VTE Risk/Contraindication: Risk Factor Score Per Nursin RFS Level Per Nursing on Admit: 4+=Very High Problem Qualifiers (1) CVA (cerebral vascular accident): CVA mechanism: unspecified Qualified Codes: I63.9 - Cerebral infarction, unspecified (2) Hypertension: Hypertension type: essential hypertension Qualified Codes: I10 - Essential (primary) hypertension KINGSLEY KRISHNAMURTHY DO March 28, 2019 10:35
--- NOTE | 2019-03-28 10:53 | Physical Therapy Daily Note ---
PT Daily Note-Current Subjective Patient in bed pre tx, agrees to PT, has no complaints of pain other than the normal pain he has from arthritis in his left knee. Appearance Patient BTB post tx with nurse call, phone, tray, all needs met. Mental Status Patient Orientation: Person, Place, Situation Transfers Therapy Code Descriptions/Definitions Functional [place] Measure: 0=Not Assessed/NA 4=Minimal Assistance 1=Total Assistance 5=Supervision or Setup 2=Maximal Assistance 6=Modified [place] 3=Moderate Assistance 7=Complete [place] Therapy Quality Codes: 6 Independent with activity with or without an assistive device 5 Patient requires set up or clean up by helper. Patient completes activity by themselves 4 Supervision or touching assist (CGA). [place] provide cues , steadying assist 3 The helper provides less than half the effort to complete the activity 2 The helper provides more than half the effort to complete the activity 1 Dependent. The helper does all the effort to complete an activity 7 Patient refused to complete or attempt activity 9 The patient did not perform the activity before the current illness or injury 88 Not attempted due to Medical conditions or safety concerns Transfers (B, C, W/C) (FIM): 6 Scootin Rollin Supine to/from Sit: 7 Sit to/from Stand: 6 Bed to/from Chair: 6 Gait Training Gait (FIM): 5 Distance: 400' Gait Level of Assist: 5 Gait Persons Needed: 1 Gait Assistive Device: Cane Single Point Patient can ambulate 400' with SBA using a single point cane. Patient has a l imp due to left knee arthritis pain. He has a bit of a deviating path but no LOB, occasional slight moments of instability Treatments ambulation Assessment Current Status: Fair Progress improved balance and endurance PT Short Term Goals Short Term Goals Time Frame: Apr 03, 2019 Transfers (B,C,W/C) (FIM): 7 Gait (FIM): 5 Gait Distance Comment: 150' Gait Level of Assist: 5 Gait Assistive Device: None PT Plan Problem List Problem List: Activity Tolerance, Functional Strength, Safety, Balance, Gait, Transfer Treatment/Plan Treatment Plan: Continue Plan of Care Treatment Plan: Education, Functional Activity Trish, Functional Strength, Gait, Safety, Therapeutic Exercise, Transfers Treatment Duration: Apr 03, 2019 Frequency: 6 times per week Estimated Hrs Per Day: .25 hour per day (15-30') Patient and/or Family Agrees t: Yes Safety Risks/Education Patient Education: Gait Training, Transfer Techniques, Correct Positioning, Safety Issues Teaching Recipient: Patient Teaching Methods: Demonstration, Discussion Response to Teaching: Reinforcement Needed Time/GCodes Time In: 1038 Time Out: 1048 Total Billed Treatment Time: 10 Total Billed Treatment 1 visit GT 10' ROSE GERARD PT March 28, 2019 10:53
--- NOTE | 2019-03-28 11:30 | Occupational Ther Daily Note ---
OT Current Status-Daily Note Subjective Pt seen in room, agreeable to OT. No pain mentioned Appearance Alert, cooperative Mental Status/Objective Therapy Code Descriptions/Definitions Functional [place] Measure: 0=Not Assessed/NA 4=Minimal Assistance 1=Total Assistance 5=Supervision or Setup 2=Maximal Assistance 6=Modified [place] 3=Moderate Assistance 7=Complete [place] ADL-Treatment Pt was observed coming out of the bathroom after toileting, walking to bed with no LOB. Pt reported no problems with toileting or toilet transfer and was pleased with how well he was doing. He said that he didn't have any problems with dressing this morning, either. Pt educ on benefit of using shower chair for bathing, as well as shower mat, and BSC or toilet riser (due to knee problems). Pt verbalized understanding and also suggested that he could benefit from some homemaker services. Information shared with social work coordinator. Pt anticipates discharge today. Goals met to pt satisfaction. DC OT Education OT Patient Education: Modified ADL techniques, Purpose of tx/functional activities, Safety issues, Transfer techniques, Use of adapted equipment Teaching Recipient: Patient Teaching Methods: Discussion Response to Teaching: Verbalize Understanding OT Short Term Goals Short Term Goals Grooming(FIM): 5 Lower Body Dressing(FIM): 5 Transfers (B,C,W/C) (FIM): 7 1=Demonstrate adherence to instructed precautions during ADL tasks. 2=Patient will verbalize/demonstrate understanding of assistive devices/modifications for ADL. 3=Patient will improve strength/tolerance for activity to enable patient to perform ADL's. OT Medical Physiologist Goals Senior Care Goals Eating (FIM): 7 Grooming(FIM): 6 Bathing(FIM): 6 Bathing Location: L Arm, R Arm, L Upper Leg, R Upper Leg, L Lower Leg (including foot), R Lower Leg (including foot), Chest, Abdomen, Buttocks, Perineal Area Upper Body Dressing(FIM): 6 Lower Body Dressing(FIM): 6 Toileting(FIM): 6 Transfers (B,C,W/C) (FIM): 6 Toilet/Commode Transfer(FIM): 6 Additional Goals: 1-Demonstrate ADL Tasks, 2-Verbalize Understanding, 3-ImproveStrength/Trish 1=Demonstrate adherence to instructed precautions during ADL tasks. 2=Patient will verbalize/demonstrate understanding of assistive devices/modifications for ADL. 3=Patient will improve strength/tolerance for activity to enable patient to perform ADL's. OT Education/Plan Problem List/Assessment pt presents with impaired ADLS and mobility affecting areas of ADLS and mobility. pt would benefit from OT services to increase independence with ADLs/ mobility. Discharge Recommendations Plan/Recommendations: Discharge/Goals Met Treatment Plan/Plan of Care Patient would benefit from OT for education, treatment and training to promote independence in ADL's, mobility, safety and/or upper extremity function for ADL's. Plan of Care: ADL Retraining, Functional Mobility, Group Exercise/Act as Ind, UE Funct Exercise/Act, UE Neuromus Re-Ed/Coord Treatment Duration: Apr 10, 2019 Frequency: 5 times per week Estimated Hrs Per Day: .25 hour per day Agreement: Yes Rehab Potential: Fair Time/GCodes Start Time: 11:05 Stop Time: 11:21 Total Time Billed (hr/min): 16 Billed Treatment Time visit, 16 minutes ADL RUBEN SUAREZ OT March 28, 2019 11:30
--- NOTE | 2019-03-28 11:37 | NUR ---
CM/SS spoke with patient for discharge planning. Patient stated that he would like some help at home with shopping, cleaning house and caring for his dog. Discussed [employer] and patient felt he had an application started with them. Patient could benefit from a shower chair and a toilet seat riser, insurance does not cover these items and discussed where he could find them at reasonable prices. Patient did not feel he had any other needs at discharge.
[2019-03-28 12:00] VITALS: BP 123/62
[2019-03-28 13:12] VITALS: BP 123/62
[2019-03-28] MEDS ORDERED: ALLOPURINOL 300 MG (ZYLOPRIM) TAB PO SCH (21:00)
== END 2019-03-28 13:19 | disposition home or self-care (01) | DRG 66 ==
LOC: EDUNIT# 16:30 → ER 16:32 → 4TH 21:40 → ICU 23:15 → 4TH 03-27 07:29
PROVIDERS: ADMIT Internal Medicine; ATTEND Internal Medicine
DX: I63.9 Cerebral infarction, unspecified (principal); R27.0 Ataxia, unspecified; I10 Essential (primary) hypertension; R29.700 NIHSS score 0; F17.210 Nicotine dependence, cigarettes, uncomplicated; F15.10 Other stimulant abuse, uncomplicated; M54.9 Dorsalgia, unspecified; E78.00 Pure hypercholesterolemia, unspecified; I73.9 Peripheral vascular disease, unspecified; M10.9 Gout, unspecified; J44.9 Chronic obstructive pulmonary disease, unspecified; M19.91 Primary osteoarthritis, unspecified site; Z91.14 Patient's other noncompliance with medication regimen; Z91.81 History of falling; Z95.828 Presence of other vascular implants and grafts
CPT/HCPCS: 36415; 70450; 70551; 80053; 80061; 80306; 80320; 81000; 83735; 85025; 85027; 93005; 93041; 93306; 93880; 94640; 94664; 94760

== ENCOUNTER 2021-07-27 18:36 | Emergency (ER) | payer MEDICAID ==
[~2021-07-27] VITALS: Ht 170 cm; Wt 91.0 kg
[~2021-07-27 18:36] MED LIST: ALLO300T2 PO; AMLO-250 PO; ASPI-1238 PO; ATOR80TA76 PO; CLOP75TA28 PO; FLUT1BLS8 INH; LISI40TA9 PO
[2021-07-27] MEDS ORDERED: CYCLOBENZAPRINE 10 MG (FLEXERIL) TAB PO STA (19:25)
--- NOTE | 2021-07-27 19:50 | ED Back Pain ---
General Chief Complaint: Lower Extremity Stated Complaint: L FOOT/LEG/HIP PAIN Nursing Triage Note: Pt ambulatory to ED with c/o leg pain x 2 wks. Pt reports pain began in his hip, pain increasing over the last week through entire leg. Pt reports aleve helps the pain, pain worse with movement and pressure. History of Present Illness Date Seen by Provider: Jul 27, 2021 Time Seen by Provider: 18:55 Initial Comments 65-year-old -[place] male presents for left hip and leg pain. He states that it began in the hip and has progressively worsened, now beginning in the buttocks and radiating radiating to his lower leg. He has been told of a diagnosis of degenerative disc disease in the past. He recently moved here, 4 months ago. He lived in [place] and had a work-up for his back many years ago including MRI. He denies any injuries or previous surgeries to his back. He denies any bowel or bladder incontinence or retention. Timing/Duration: 1 Week, Getting Worse, Intermittent Severity: Moderate Pain/Injury Location: Back, Lower Extremity (left) Radiation: Buttocks, Lower Legs, Upper Legs Associated Symptoms: muscle spasms; No weakness, No numbness in legs/feet, No tingling in legs/feet; lower back pain; No loss of bladder control, No loss of bowel control Allergies and Home Medications Allergies Coded Allergies: No Known Drug Allergies (Unverified , 03/26/19) Patient Home Medication List Home Medication List Reviewed: Yes Allopurinol (Allopurinol) 300 Mg Tablet, 300 MG PO HS Prescribed by: KINGSLEY KRISHNAMURTHY on 03/28/19 1034 Amlodipine Besylate (Amlodipine Besylate) 5 Mg Tablet, 5 MG PO DAILY Prescribed by: KINGSLEY KRISHNAMURTHY on 03/28/19 1034 Aspirin (Aspirin EC) 81 Mg Tablet.dr, 81 MG PO HS Prescribed by: KINGSLEY KRISHNAMURTHY on 03/28/19 1034 Atorvastatin Calcium (Atorvastatin Calcium) 80 Mg Tablet, 80 MG PO DAILY Prescribed by: KINGSLEY KRISHNAMURTHY on 03/28/19 1034 Clopidogrel Bisulfate (Clopidogrel) 75 Mg Tablet, 75 MG PO DAILY Prescribed by: KINGSLEY KRISHNAMURTHY on 03/28/19 1034 Fluticasone Propion/Salmeterol (Wixela 100-50 Inhub) 1 Each Blst.w.dev, 1 PUFF INH BID Prescribed by: KINGSLEY KRISHNAMURTHY on 03/28/19 1034 Lisinopril (Lisinopril) 40 Mg Tablet, 40 MG PO HS Prescribed by: KINGSLEY KRISHNAMURTHY on 03/28/19 1034 Review of Systems Constitutional: no symptoms reported, see HPI Gastrointestinal: no symptoms reported, see HPI Genitourinary: no symptoms reported, see HPI Musculoskeletal: see HPI, back pain All Other Systems Reviewed Negative Unless Noted: Yes Past Jznoaay-Sfscjv-Hoezih Hx Patient Social History Tobacco Use?: Yes Tobacco type used: Cigarettes Smoking Status: Current Everyday Smoker Use of E-Cig and/or Vaping dev: No Substance use?: No Alcohol Use?: No Immunizations Up To Date Influenza Vaccine Up-to-Date: No; Not Current First/Initial COVID19 Vaccinat: Jun 2021 Seasonal Allergies Seasonal Allergies: No Past Medical History Surgeries: Yes (chest for osteomyelitis) Vascular Surgery Respiratory: Yes COPD Cardiac: Yes High Cholesterol, Hypertension, Peripheral Vascular Neurological: No Genitourinary: No Gastrointestinal: No Musculoskeletal: Yes Arthritis, Chronic Back Pain, Gout Endocrine: No HEENT: No Cancer: No Psychosocial: Yes (polysubstance abuse) Blood Disorders: No Adverse Reaction/Blood Tranf: No Family Medical History Reviewed Nursing Family Hx Physical Exam Vital Signs Vital Signs - First Documented 07/27/21 18:53 Temp 36.7 Pulse 84 Resp 18 B/P (MAP) 169/106 (127) Pulse Ox 97 O2 Delivery Room Air Capillary Refill : Height, Weight, BMI Height: 5'7.00" Weight: 210lbs. 0.0oz. 95.672535nh; 31.00 BMI Method:Stated General Appearance: No Apparent Distress Neck: Full Range of Motion, Normal Inspection, Non Tender, Supple Cardiovascular: Regular Rate, Rhythm, No Edema, No Murmur, Normal Peripheral Pulses Respiratory: Chest Non Tender, Lungs Clear, Normal Breath Sounds Gastrointestinal: Normal Bowel Sounds, Non Tender, Soft, Distended Extremity: Normal Capillary Refill, Normal Inspection, Normal Range of Motion, Non Tender, No Calf Tenderness, No Pedal Edema, Other (Full ROM Bilat hips. Power V/V L4-S1. Neg SLR. No pain in groin or over greater trochanter. Ambulates with a steady gait.) Neurologic/Psychiatric: Alert, Oriented x3, No Motor/Sensory Deficits, Normal Mood/Affect Skin: Normal Color, Warm/Dry Progress/Results/Core Measures Results/Orders My Orders Orders - JYOTHI RODRIGUEZ Cyclobenzaprine Tablet (Flexeril Tablet) (07/27/21 19:25) Tramadol Tablet (Ultram Tablet) (07/27/21 19:25) Lumbar Spine - 2-3 Views (07/27/21 19:25) Pelvis With Left Hip 2-3 Views (07/27/21 19:25) Vital Signs/I&O 07/27/21 07/27/21 18:53 19:33 Temp 36.7 36.7 Pulse 84 Resp 18 B/P (MAP) 169/106 (127) Pulse Ox 97 O2 Delivery Room Air Blood Pressure Mean: 127 Progress Progress Note : Time: 18:55 Progress Note Patient seen and evaluated, will give tramadol 50 mg orally and Flexeril 10 mg orally. Will obtain x-rays of the hip and back. Diagnostic Imaging Diagonstic Imaging: Xray Plain Films/CT/US/NM/MRI: pelvis, hip Comments NAME: PACOARMOND Sahu [facility] REC#: [id number] PT STATUS: REG ER : 1955 PHYSICIAN: JOYTHI RODRIGUEZ ADMIT DATE: 07/27/21/ER Draft Date of Exam:07/27/21 PELVIS WITH LEFT HIP 2-3 VIEWS EXAM: Pelvis and left hip radiograph EXAM DATE: 07/27/2021 COMPARISON: None. HISTORY: Pelvis and left hip pain. TECHNIQUE: Single view of the pelvis with 2 views left hip. FINDINGS: There is no acute fracture, dislocation, or destructive osseous process. Joint spaces are normal. The soft tissues are normal. A left pelvic vascular stent is seen. IMPRESSION: Degenerative changes with no acute osseous abnormality seen within the pelvis or left hip. Dictated on workstation # [id number] Dict: 07/27/211942 Trans: 07/27/211948 [facility] [id number] Interpreted by: MARCY NI DO Electronically signed by: Diagonstic Imaging: Xray Plain Films/CT/US/NM/MRI: other (L Spine) Comments ELZA: ARMOND ANTONIO [facility] REC#: [id number] PT STATUS: REG ER : 1955 PHYSICIAN: JYOTHI RODRIGUEZ ADMIT DATE: 07/27/21/ER Draft Date of Exam:07/27/21 LUMBAR SPINE - 2-3 VIEWS EXAM: Lumbar spine radiograph EXAM DATE: 07/27/2021 COMPARISON: 11/25/2008 HISTORY: Low back pain. TECHNIQUE: 3 views lumbar spine. FINDINGS: Vertebral body heights and alignment are normal. There is loss of disc height at L4-L5 and L5-S1. There is multilevel lumbar spondylosis. No acute fracture seen. There is multilevel facet hypertrophy seen within the lower lumbar spine. Vascular calcifications and stents are seen. IMPRESSION: 1. Degenerative changes of lumbar spine without acute osseous abnormality. Dictated on workstation # [id number] Dict: 07/27/211941 Trans: 07/27/211947 [facility] [id number] Interpreted by: MARCY NI DO Electronically signed by: Reviewed: Reviewed by Me Departure Impression Primary Impression: Back pain Qualified Codes: M54.42 - Lumbago with sciatica, left side Additional Impressions: Lumbar radiculopathy Left sided sciatica Disposition: 01 HOME, SELF-CARE Condition: Improved Departure-Patient Inst. Decision time for Depature: 20:15 Referrals: KINGSLEY KRISHNAMURTHY DO (PCP) Primary Care Physician BRANDON ARCE MD, JACQUELINE S DO Patient Instructions: Getting In and Out of Bed After Back Surgery, Radiculopathy (DC), Sciatica (DC) Add. Discharge Instructions: Alternate heat and ice to your low back as needed. Take medications as prescribed. Establish care with a primary care provider. Walk 5-15 min daily. Return to the emergency department for new, urgent healthcare needs. All discharge instructions reviewed with patient and/or family. Voiced understanding. Scripts Prednisone (Prednisone) 20 Mg Tab 40 MG PO DAILY, #6 TAB 0 Refills Prov: JYOTHI RODRIGUEZ 07/27/21 Cyclobenzaprine HCl (Cyclobenzaprine HCl) 10 Mg Tablet 10 MG PO Q8H PRN for SPASMS, #15 TAB 0 Refills Prov: JYOTHI RODRIGUEZ 07/27/21 Tramadol HCl (Tramadol HCl) 50 Mg Tablet 50 MG PO Q6H PRN for PAIN, #20 TAB 0 Refills Prov: JYOTHI RODRIGUEZ 07/27/21 JYOTHI RODRIGUEZ Jul 27, 2021 19:50
[2021-07-27] MEDS ORDERED: TRM50T PO (20:21)
[2021-07-27] MEDS ORDERED: CYCL10TA9 PO (20:21)
[2021-07-27] MEDS ORDERED: PRD20T PO (20:22)
[2021-07-27 20:32] VITALS: BP 156/91
== END 2021-07-27 20:34 | disposition home or self-care (01) ==
LOC: EDUNIT# 18:36 → ER 18:38
DX: M54.16 Radiculopathy, lumbar region (principal); J44.9 Chronic obstructive pulmonary disease, unspecified; I10 Essential (primary) hypertension; M10.9 Gout, unspecified; E78.00 Pure hypercholesterolemia, unspecified; F17.210 Nicotine dependence, cigarettes, uncomplicated; Z79.82 Long term (current) use of aspirin; Z79.01 Long term (current) use of anticoagulants; Z79.899 Other long term (current) drug therapy
CPT/HCPCS: 72100

== ENCOUNTER 2021-12-04 11:41 | Emergency (ER) | payer MEDICARE, MEDICAID ==
[~2021-12-04] VITALS: Ht 170 cm; Wt 91.0 kg
[~2021-12-04 11:41] MED LIST changes: +CYCL10TA25 PO; +PRD20T PO; +TRM50T PO
[2021-12-04] MEDS ORDERED: PRD20T PO (12:23)
[2021-12-04] MEDS ORDERED: CEFU250T80 PO (12:23)
--- NOTE | 2021-12-04 12:23 | ED Lower Extremity ---
General Chief Complaint: Lower Extremity Stated Complaint: COUGH, SORE THROAT, NOSE BLEEDS Source: patient Exam Limitations: no limitations History of Present Illness Date Seen by Provider: Dec 04, 2021 Time Seen by Provider: 12:19 Initial Comments To ER with a 3-day history of a bloody nose mostly on the left side whenever he blows his nose. He has had a chronic cough from smoking which is recently become productive. He continues to smoke. No fever no chills no body aches no shortness of breath. No nausea no vomiting. He has had 1 Covid vaccine. He fell about 3 days ago and now has pain in the lateral right knee over the fibular head. No other injury did not hit his head when he fell. Onset: just prior to arrival Severity: moderate Pain/Injury Location: left knee Method of Injury: fell Modifying Factors: Worse With Movement Allergies and Home Medications Allergies Coded Allergies: No Known Drug Allergies (Unverified , 03/26/19) Patient Home Medication List Home Medication List Reviewed: Yes Allopurinol (Allopurinol) 300 Mg Tablet, 300 MG PO HS Prescribed by: KINGSLEY KRISHNAMURTHY on 03/28/19 1034 Amlodipine Besylate (Amlodipine Besylate) 5 Mg Tablet, 5 MG PO DAILY Prescribed by: KINGSLEY KRISHNAMURTHY on 03/28/19 1034 Aspirin (Aspirin EC) 81 Mg Tablet.dr, 81 MG PO HS Prescribed by: KINGSLEY KRISHNAMURTHY on 03/28/19 1034 Atorvastatin Calcium (Atorvastatin Calcium) 80 Mg Tablet, 80 MG PO DAILY Prescribed by: KINGSLEY KRISHNAMURTHY on 03/28/19 1034 Cefuroxime Axetil (Cefuroxime) 250 Mg Tablet, 250 MG PO BID Prescribed by: NAHED SALINAS on 12/04/21 1223 Clopidogrel Bisulfate (Clopidogrel) 75 Mg Tablet, 75 MG PO DAILY Prescribed by: KINGSLEY KRISHNAMURTHY on 03/28/19 1034 Cyclobenzaprine HCl (Cyclobenzaprine HCl) 10 Mg Tablet, 10 MG PO Q8H PRN for SPASMS Prescribed by: JYOTHI RODRIGUEZ on 07/27/212020 Fluticasone Propion/Salmeterol (Wixela 100-50 Inhub) 1 Each Blst.w.dev, 1 PUFF INH BID Prescribed by: KINGSLEY KRISHNAMURTHY on 03/28/19 1034 Lisinopril (Lisinopril) 40 Mg Tablet, 40 MG PO HS Prescribed by: KINGSLEY KRISHNAMURTHY on 03/28/19 1034 Prednisone (Prednisone) 20 Mg Tab, 40 MG PO DAILY Prescribed by: JYOTHI RODRIGUEZ on 07/27/212021 Prednisone (Prednisone) 20 Mg Tab, 40 MG PO DAILY Prescribed by: NAHED SALINAS on 12/04/21 1223 Tramadol HCl (Tramadol HCl) 50 Mg Tablet, 50 MG PO Q6H PRN for PAIN Prescribed by: JYOTHI RODRIGUEZ on 07/27/212021 Review of Systems Constitutional: see HPI EENTM: see HPI, epistaxis Respiratory: no symptoms reported Cardiovascular: no symptoms reported Genitourinary: no symptoms reported Musculoskeletal: no symptoms reported Skin: no symptoms reported Psychiatric/Neurological: No Symptoms Reported Past Upttycs-Njcyzs-Zhywhb Hx Patient Social History Tobacco Use?: Yes Tobacco type used: Cigarettes Smoking Status: Current Everyday Smoker Substance use?: Yes Substance type: Marijuana Substance frequency: Daily Alcohol Use?: No Pt feels they are or have been: No Immunizations Up To Date Influenza Vaccine Up-to-Date: No; Not Current First/Initial COVID19 Vaccinat: Jun 2021 Seasonal Allergies Seasonal Allergies: No Past Medical History Surgeries: Yes (chest for osteomyelitis) Vascular Surgery Respiratory: Yes COPD Cardiac: Yes High Cholesterol, Hypertension, Peripheral Vascular Neurological: No Genitourinary: No Gastrointestinal: No Musculoskeletal: Yes Arthritis, Chronic Back Pain, Gout Endocrine: No HEENT: No Cancer: No Psychosocial: Yes (polysubstance abuse) Blood Disorders: No Adverse Reaction/Blood Tranf: No Physical Exam Vital Signs Capillary Refill : Height, Weight, BMI Height: 5'7.00" Weight: 210lbs. 0.0oz. 95.688479lx; 31.00 BMI Method:Stated General Appearance: WD/WN, no apparent distress HEENT: PERRL/EOMI, other (Dried blood left side of the nasal septum anteriorly) Neck: non-tender, full range of motion Respiratory: no respiratory distress, no accessory muscle use Hips: bilateral hip non-tender, bilateral hip normal inspection, bilateral hip normal range of motion Legs: bilateral leg non-tender, bilateral leg normal inspection, bilateral leg normal range of motion Knees: right knee pain, right knee soft tissue tenderness, right knee other (Soft tissue tenderness over the fibular head but no swelling) Ankles: bilateral ankle non-tender, bilateral ankle normal inspection, bilateral ankle normal range of motion Feet: bilateral foot non-tender, bilateral foot normal inspection, bilateral fo ot normal range of motion Neurologic/Psychiatric: alert, normal mood/affect, oriented x 3 Skin: normal color, warm/dry Progress/Results/Core Measures Results/Orders My Orders Orders - NAHED SALINAS APRN Knee, Right, 3 Views (12/04/21 12:18) Departure Impression Primary Impression: Epistaxis Additional Impressions: Right knee pain Bronchitis Disposition: 01 HOME, SELF-CARE Condition: Stable Departure-Patient Inst. Decision time for Depature: 12:21 Referrals: NO,LOCAL PHYSICIAN (PCP/Family) Primary Care Physician Patient Instructions: Knee Pain, Nosebleeds Add. Discharge Instructions: 1. Antibiotics and steroids as directed. Keep the nasal mucosa moist by putting either Vaseline or antibiotic on a Q-tip and putting it inside the nose daily. Do this very gently. Try not to blow your nose for a few days. Return to ER for any worsening. All discharge instructions reviewed with patient and/or family. Voiced understanding. Scripts Sodium Chloride (Nasal Moisturizing) 88 Ml [place] 1 SPRAY NS BID, #1 EA Prov: NAHED SALINAS APRN 12/04/21 Cefuroxime Axetil (Cefuroxime) 250 Mg Tablet 250 MG PO BID, #10 TAB Prov: NAHED SALINAS APRN 12/04/21 Prednisone (Prednisone) 20 Mg Tab 40 MG PO DAILY, #6 TAB 0 Refills Prov: NAHED SALINAS APRN 12/04/21 NAHED SALINAS APRN Dec 04, 2021 12:23
[2021-12-04] MEDS ORDERED: SODI88SP5 NS (12:24)
--- NOTE | 2021-12-04 12:46 | Diagnostic Imaging Report ---
KNEE, RIGHT, 3 VIEWS INDICATION: Pain in lateral knee COMPARISON: None available. TECHNIQUE: 3 views of the right knee FINDINGS: No fracture or erosions. 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 Extensive vascular calcifications are present. IMPRESSION: No acute osseous abnormality. Dictated by: Dictated on workstation # [id number]
[2021-12-04 13:05] VITALS: BP 152/98
== END 2021-12-04 13:07 | disposition home or self-care (01) ==
LOC: EDUNIT# 11:41 → ER 11:46
DX: R04.0 Epistaxis (principal); M25.561 Pain in right knee; J40 Bronchitis, not specified as acute or chronic; J44.9 Chronic obstructive pulmonary disease, unspecified; I10 Essential (primary) hypertension; M10.9 Gout, unspecified; E78.00 Pure hypercholesterolemia, unspecified; G89.29 Other chronic pain; M54.9 Dorsalgia, unspecified; F17.210 Nicotine dependence, cigarettes, uncomplicated; Z79.82 Long term (current) use of aspirin; Z79.01 Long term (current) use of anticoagulants; Z79.891 Long term (current) use of opiate analgesic; Z79.899 Other long term (current) drug therapy
CPT/HCPCS: 73562

== ENCOUNTER 2022-10-06 14:03 | Emergency (ER) | payer MEDICARE, MEDICAID ==
[~2022-10-06] VITALS: Ht 172.2 cm; Wt 90.0 kg
[~2022-10-06 14:03] MED LIST changes: +CEFU250T80 PO; +SODI88SP5 NS
--- NOTE | 2022-10-06 14:30 | ED Lower Extremity ---
General Chief Complaint: Lower Extremity Stated Complaint: LT ANKLE SWELLING | GOUT Nursing Triage Note: PT STATES HE HAS HAD GOUT FOR A LONG TIME, TAKES ALLOPURINOL, WITHIN THE LAST 3 DAYS HIS LEFT KNEE HAS SWOLLEN AND HE HAS INCREASED PAIN Source: patient Exam Limitations: no limitations History of Present Illness Date Seen by Provider: Oct 06, 2022 Time Seen by Provider: 14:15 Initial Comments 67-year-old male presents the emergency department today for pain in his left leg that he believes is secondary to gout. About 3 years ago he had an injury to the area is a chronic swelling since that time. For the last year to year and a half he said intermittent episodes of pain in his leg which she has been told are related to gout in the past. Currently for the last 8 months he has had an increase in pain in his left ankle. He states he recently moved here from [facility] (about a year ago) and has not established care with a local area. He is on allopurinol which he takes daily. He is also on medicine for high blood pressure and high cholesterol. Currently his pain is intermittent sharp stabbing in his left ankle worse with weightbearing and relieved by rest. He has not tried anything for his pain. No fevers or chills. No redness. He has chronic swelling without any changes in this. No new injuries. Allergies and Home Medications Allergies Coded Allergies: No Known Drug Allergies (Unverified , 03/26/19) Patient Home Medication List Home Medication List Reviewed: Yes Allopurinol (Allopurinol) 300 Mg Tablet, 300 MG PO HS Prescribed by: KINGSLEY KRISHNAMURTHY on 03/28/19 1034 Amlodipine Besylate (Amlodipine Besylate) 5 Mg Tablet, 5 MG PO DAILY Prescribed by: KINGSLEY KRISHNAMURTHY on 03/28/19 1034 Aspirin (Aspirin EC) 81 Mg Tablet.dr, 81 MG PO HS Prescribed by: KINGSLEY KRISHNAMURTHY on 03/28/19 1034 Atorvastatin Calcium (Atorvastatin Calcium) 80 Mg Tablet, 80 MG PO DAILY Prescribed by: KINGSLEY KRISHNAMURTHY on 03/28/19 1034 Cefuroxime Axetil (Cefuroxime) 250 Mg Tablet, 250 MG PO BID Prescribed by: NAHED SALINAS on 12/04/21 1223 Clopidogrel Bisulfate (Clopidogrel) 75 Mg Tablet, 75 MG PO DAILY Prescribed by: KINGSLEY KRISHNAMURTHY on 03/28/19 1034 Cyclobenzaprine HCl (Cyclobenzaprine HCl) 10 Mg Tablet, 10 MG PO Q8H PRN for SPASMS Prescribed by: JYOTHI RODRIGUEZ on 07/27/212020 Fluticasone Propion/Salmeterol (Wixela 100-50 Inhub) 1 Each Blst.w.dev, 1 PUFF INH BID Prescribed by: KINGSLEY KRISHNAMURTHY on 03/28/19 1034 Lisinopril (Lisinopril) 40 Mg Tablet, 40 MG PO HS Prescribed by: KINGSLEY KRISHNAMURTHY on 03/28/19 1034 Prednisone (Prednisone) 20 Mg Tab, 40 MG PO DAILY Prescribed by: JYOTHI RODRIGUEZ on 07/27/212021 Prednisone (Prednisone) 20 Mg Tab, 40 MG PO DAILY Prescribed by: NAHED SALINAS on 12/04/21 1223 Sodium Chloride (Nasal Moisturizing) 88 Ml [place], 1 SPRAY NS BID Prescribed by: NAHED SALINAS on 12/04/21 1224 Tramadol HCl (Tramadol HCl) 50 Mg Tablet, 50 MG PO Q6H PRN for PAIN Prescribed by: JYOTHI RODRIGUEZ on 07/27/212021 Review of Systems Constitutional: no symptoms reported EENTM: no symptoms reported Respiratory: no symptoms reported Cardiovascular: no symptoms reported Gastrointestinal: no symptoms reported Genitourinary: no symptoms reported, other (Left leg swelling, ankle pain) Musculoskeletal: no symptoms reported Skin: no symptoms reported Psychiatric/Neurological: No Symptoms Reported Past [id number] Hx Patient Social History Tobacco Use?: Yes Tobacco type used: Cigarettes Smoking Status: Current Everyday Smoker Substance use?: No Alcohol Use?: No Immunizations Up To Date Influenza Vaccine Up-to-Date: No; Not Current First/Initial COVID19 Vaccinat: Jun 2021 Second COVID19 Vaccination Martinez: Jun 2021 Third COVID19 Vaccination Date: Jun 2021 Seasonal Allergies Seasonal Allergies: No Past Medical History Surgery/Hospitalization HX: Hypertension, hypercholesterolemia GOUT, CVA Surgeries: Yes (chest for osteomyelitis) Vascular Surgery Respiratory: Yes COPD Cardiac: Yes High Cholesterol, Hypertension, Peripheral Vascular Neurological: No Genitourinary: No Gastrointestinal: No Musculoskeletal: Yes Arthritis, Chronic Back Pain, Gout Endocrine: No HEENT: No Cancer: No Psychosocial: Yes (polysubstance abuse) Blood Disorders: No Adverse Reaction/Blood Tranf: No Family Medical History Reviewed Nursing Family Hx No Pertinent Family Hx Physical Exam Vital Signs Vital Signs - First Documented 10/06/22 14:12 Temp 37.4 Pulse 105 Resp 18 B/P (MAP) 131/63 (85) Pulse Ox 100 O2 Delivery Room Air Capillary Refill : Less Than 3 Seconds Height, Weight, BMI Height: 5'7.00" Weight: 210lbs. 0.0oz. [id number]; 30.00 BMI Method:Stated General Appearance: WD/WN, no apparent distress HEENT: normal ENT inspection, pharynx normal Neck: non-tender, supple, normal inspection Cardiovascular: regular rate, rhythm, no murmur Respiratory: chest non-tender, lungs clear, normal breath sounds, no respiratory distress, no accessory muscle use Gastrointestinal: normal bowel sounds, non tender, soft, no organomegaly Back: normal inspection, no CVA tenderness, no vertebral tenderness Hips: bilateral hip non-tender, bilateral hip normal inspection, bilateral hip normal range of motion Legs: right leg non-tender, right leg normal inspection, right leg normal range of motion; left leg swelling (Significant swelling in his left lower extremity to the knee. Unable to reproduce pain on exam. Neurovascular and sensory intact) Knees: bilateral knee non-tender Ankles: bilateral ankle non-tender, bilateral ankle normal inspection, bilateral ankle normal range of motion Feet: bilateral foot non-tender, bilateral foot normal inspection, bilateral foot normal range of motion Neurologic/Psychiatric: alert, normal mood/affect, oriented x 3 Skin: normal color, warm/dry Lymphatic: no adenopathy Progress/Results/Core Measures Results/Orders Vital Signs/I&O 10/06/22 14:12 Temp 37.4 Pulse 105 Resp 18 B/P (MAP) 131/63 (85) Pulse Ox 100 O2 Delivery Room Air Blood Pressure Mean: 85 Departure Communication (Admissions) Patient is hemodynamically stable. He states he has had an ultrasound of his left lower extremity related to the swelling, about a year and a half ago prior to moving here. This was negative for DVT reportedly. No indication for gout as I am unable to reproduce pain at all on exam even throughout range of motion. He is neurovascular and sensory intact. No evidence for infection or neurovascular compromise. No indication for imaging as this is a chronic problem. Advised him I am unwilling to treat his chronic pain here from the emergency department but would refer him to the [facility] for further longer- term care. He states understanding. He is discharged home in stable condition with supportive care Impression Primary Impression: Left leg swelling Additional Impression: Left ankle pain Qualified Codes: M25.572 - Pain in left ankle and joints of left foot; G89.29 - Other chronic pain Disposition: 01 HOME, SELF-CARE Condition: Stable Departure-Patient Inst. Referrals: NO,LOCAL PHYSICIAN (PCP) Primary Care Physician [facility] [place]. Discharge Instructions: Use ibuprofen and Tylenol as needed for pain. Establish care with the [facility] by calling to schedule an appointment. Return to the emergency department for any severe concerns All discharge instructions reviewed with patient and/or family. Voiced understanding. HAKAN HERNANDEZ DO Oct 06, 2022 14:30
[2022-10-06 14:44] VITALS: BP 131/63
== END 2022-10-06 14:44 | disposition home or self-care (01) ==
LOC: EDUNIT# 14:03 → ER 14:06
DX: M25.572 Pain in left ankle and joints of left foot (principal); M79.89 Other specified soft tissue disorders; I10 Essential (primary) hypertension; E78.5 Hyperlipidemia, unspecified; F17.210 Nicotine dependence, cigarettes, uncomplicated; Z28.311 Partially vaccinated for COVID-19
CPT/HCPCS: 99281